=== PATIENT | female | born 1950 | race Hispanic/Latino ===

== ENCOUNTER → 2018-02-27 | Day surgery (SDC) | payer MEDICARE ==
[2018-02-26 08:57] VITALS: BMI 25.4
[~2018-02-27] MED LIST: Bupivacaine 0.75% 10 ML AMP ONE; CEFAZOLIN 1 GM VIAL ONE; Cyclopentolate 1% Opth Drop 2 ML BOT FS SCH; Cyclopentolate 1% Opth Drop 2 ML BOT ONE; Dextrose 50% Abboject 50 ML SYRINGE ONE; EPINEPHrine 0.3 MG, Dextrose 50% 3 ML in Ophthalmic Irrigation Solution 500 ML FS SCH; Fentanyl 100 MCG/2 ML VIAL ONE; Lidocaine 1% PF 5 ML VIAL ONE; Lidocaine 4% PF 5 ML AMP ONE; Maxitrol 0.1% Opth Oint 3.5 GM TUBE ONE; Midazolam HCl 2 mg/2 ml Vial ONE; PROPOFOL 20 ML ONE; PROPOFOL 200 MG/20 ML VIAL ONE; Phenylephrine 2.5% Ophth Soln 5 ML BOT FS SCH; Phenylephrine 2.5% Ophth Soln 5 ML BOT ONE; Triamcinolone 40 MG/ML VIAL ONE
--- NOTE | 2018-02-27 15:57 | OP ---
DATE OF PROCEDURE: 02/27/2018 PREOPERATIVE DIAGNOSIS: Vitreous hemorrhage. POSTOPERATIVE DIAGNOSIS: Vitreous hemorrhage. PROCEDURE: Pars plana vitrectomy and panretinal photocoagulation, left eye. SURGEON: Brian Suero M.D. ANESTHESIA: Local with monitored anesthesia care. PROCEDURE IN DETAIL: The patient was identified in the preoperative holding area. Appropriate infor med consent for the planned surgical procedure on the left eye had been obtained. The patient was tr ansported to the operative suite. Appropriate cardiopulmonary monitoring was established. Local ane sthesia was obtained using retrobulbar and modified Van Lint lid block using 50/50 mixture of 4% lido macarena and 0.75% bupivacaine. The patient was prepped and draped in the usual sterile manner for opht halmic surgery on the left eye. Lid speculum was placed in the left eye. The 25-gauge trocars place d in conjunctiva and sclera supratemporally, inferotemporally, and supranasally. Infusion line was p laced inferotemporally. Light pipe and vitreous cutter were inserted into the eye. Core vitrectomy was performed. Posterior hyaloid face was elevated and peeled off the posterior pole using vacuum prieto ction. All areas of bleeding were identified and treated with endolaser and Guerra retinal photocoagula tion was placed into all non-macular areas of the retina. Trocars were removed. Eye was noted to re tain pressure well. Retrobulbar Kenalog and subconjunctival Ancef were placed. Atropine and antibio tic ointment were placed. The eye was patched and shielded. The patient was taken to the postoperat tc recovery unit in good condition having suffered no immediate perioperative period. DISCHARGE INSTRUCTIONS: Patient was instructed to keep patch and shield on, avoid lifting or bending , and follow up in the morning with Dr. Suero.
== END ==
LOC: SDC 10:18
PROVIDERS: ATTEND Ophthalmology Retina Specialist
PROC: 08T53ZZ Resection of Left Vitreous, Percutaneous Approach (ICD-10-PCS; principal; 2018-02-27)
PROC: 085F3ZZ Destruction of Left Retina, Percutaneous Approach (ICD-10-PCS; 2018-02-27)
DX: H43.12 Vitreous hemorrhage, left eye (principal); E11.9 Type 2 diabetes mellitus without complications; Z79.82 Long term (current) use of aspirin; Z79.899 Other long term (current) drug therapy; Z79.4 Long term (current) use of insulin
CPT/HCPCS: 36416; J0171; J0690; J2001; J2250; J2704; J3010; J3301; J3490

== ENCOUNTER 2018-04-15 19:42 | Emergency (ER) | payer MEDICARE ==
--- NOTE | 2018-04-15 20:32 | RAD ---
RIGHT LOWER LEG TWO VIEWS: 04/15/18 HISTORY: Right leg injury. FINDINGS/IMPRESSION: The tibia and fibula are intact. Patellar fracture is better detailed on dedicated knee radiograph ex am. POS: [facility]
--- NOTE | 2018-04-15 20:35 | RAD ---
RIGHT KNEE FOUR VIEW 04/15/18 HISTORY: Injury. Pain. COMPARISON: None. FINDINGS: There is a transversely oriented fracture inferior pole of the patella with distraction approximately 4.5 cm. Extensive prepatellar soft tissue swelling. Moderate vascular calcifications. IMPRESSION: Displaced transversely oriented fracture inferior pole of the patella with 4.5 cm distraction. POS: [facility]
== END 2018-04-15 21:48 | disposition home or self-care (01) ==
LOC: ERS 19:42
DX: S82.031A Displaced transverse fracture of right patella, initial encounter for closed fracture (principal); E11.9 Type 2 diabetes mellitus without complications; E78.5 Hyperlipidemia, unspecified; I10 Essential (primary) hypertension; F17.210 Nicotine dependence, cigarettes, uncomplicated; I25.10 Atherosclerotic heart disease of native coronary artery without angina pectoris; Z79.82 Long term (current) use of aspirin; Z79.84 Long term (current) use of oral hypoglycemic drugs; Z79.899 Other long term (current) drug therapy; W01.0XXA Fall on same level from slipping, tripping and stumbling without subsequent striking against object, initial encounter
CPT/HCPCS: 99406

== ENCOUNTER 2018-04-19 13:56 | Emergency (ER) | payer MEDICARE | END 2018-04-19 17:15 | disposition home or self-care (01) | LOC: ERS 13:56 | DX: S82.001A Unspecified fracture of right patella, initial encounter for closed fracture (principal); I25.10 Atherosclerotic heart disease of native coronary artery without angina pectoris; E11.9 Type 2 diabetes mellitus without complications; E78.5 Hyperlipidemia, unspecified; I10 Essential (primary) hypertension; F17.210 Nicotine dependence, cigarettes, uncomplicated; Z79.899 Other long term (current) drug therapy; Z79.82 Long term (current) use of aspirin; Z79.4 Long term (current) use of insulin; W19.XXXA Unspecified fall, initial encounter | CPT/HCPCS: 99283 ==

== ENCOUNTER 2018-05-06 05:27 | Inpatient (IN) | payer MEDICARE ==
[2018-05-06 06:17] LABS: #Basophils 0.1 thou/uL (0.0-0.2); #Eosinphils 0.2 thou/uL (0.0-0.7); #Lymphocytes 2.1 thou/uL (1.20-3.40); #Monocytes 1.1 thou/uL (0.11-0.59); %Basophils 0.3 % (0.0-1.0); %Eosinophils 0.8 % (0.0-10.0); %Lymphocytes 11.2 % (21.0-51.0); %Neutrophils 81.7 % (42.0-75.0); Hemoglobin 9.4 g/dL (12.0-16.0); Mean Corpuscular HGB CONC 33.1 g/dL (32.0-36.0); Mean Corpuscular Hemoglobin 29.5 pg (27.0-31.0); Mean Corpuscular Volume 89.1 fL (78.0-98.0); Mean Platelet Volume 6.3 fL (7.4-10.4); Platelet Count 1007 thou/uL (130-400); RBC Distribution Width 12.9 % (11.5-14.5); Red Blood Cell (RBC) Count 3.18 mill/uL (4.20-5.40); White Blood Cell (WBC) Count 18.4 thou/uL (4.8-10.8)
[2018-05-06 06:19] LABS: ALT (SGPT) Less than 7 U/L (8-55); AST (SGOT) 14 U/L (5-34); Albumin 3.3 g/dL (3.4-4.8); Alkaline Phosphatase 101 U/L (40-150); Anion Gap 22 mmol/L (10-20); BUN (Urea Nitrogen) 60 mg/dL (9.8-20.1); Bilirubin, Total 0.3 mg/dL (0.2-1.2); CK (CPK) 75 U/L (29-168); Calc. Creatinine Clearance 0 mL/min (70-130); Calcium 8.9 mg/dL (7.8-10.44); Carbon Dioxide 13 mmol/L (23-31); Chloride 94 mmol/L (98-107); Estimated GFR-MDRD 31; Globulin 3.9 g/dL (2.4-3.5); Glucose 250 mg/dL (80-115); Lipase 7 U/L (8-78); Potassium 6.4 mmol/L (3.5-5.1); Protein, Total 7.2 g/dL (6.0-8.3); Sodium 123 mmol/L (136-145)
[2018-05-06 06:24] LABS: CKMB 2.2 ng/mL (0-6.6); Troponin I Less than 0.010 ng/mL (< 0.028)
[2018-05-06] MEDS ORDERED: Dextrose 50% Abboject 50 ML SYRINGE ONE (06:36)
[2018-05-06] MEDS ORDERED: Sodium Bicarb 50 MEQ/50 ML Abboject 8.4% SYRINGE ONE (06:36)
[2018-05-06] MEDS ORDERED: Insulin Regular 300 UNITS/3 ML VIAL ONE (06:36)
[2018-05-06] MEDS ORDERED: Calcium Gluc 4.6 MEQ/10 ML (100 MG/ML) ONE (06:36)
[2018-05-06 06:42] LABS: Bilirubin Small (Negative); Blood, Urine Large (Negative); Clarity TURBID (Clear); Glucose, Urine (Dipstick) 250 mg/dL (Negative); Leukocyte Large (Negative); Nitrite Negative (Negative); Protein, Urine (Dipstick) Trace mg/dL (Neg-Trace); Specific Gravity, Urine 1.013 (1.002-1.036); Urobilinogen 0.2 mg/dL (0.2-1.0)
[2018-05-06 06:45] LABS: Bacteria/HPF 3+ HPF (None Seen); Squamous Epithelial None Seen HPF (0-3)
[2018-05-06 06:53] LABS: Pathc Cast-AUWi Flag 3.98 (0-2.49)
[2018-05-06 07:01] LABS: Hyaline Casts/LPF 0-3 HYALINE CAST LPF (0-3 Hyaline); Manual Microscopic Reviewed? No Path Casts Seen; Yeast-All Forms 2+ HPF (None Seen)
[2018-05-06] MEDS ORDERED: Ondansetron ODT 4 MG TAB PO PRN (07:46)
[2018-05-06] MEDS ORDERED: Milk Of Magnesia 30 ML UDCUP PO PRN (07:46)
[2018-05-06] MEDS ORDERED: Zolpidem Tartrate 5 MG TAB PO PRN (07:46)
[2018-05-06] MEDS ORDERED: Senokot 8.6 MG TAB PO PRN (07:46)
[2018-05-06] MEDS ORDERED: Sodium Chloride 0.65% Nasal 44 ML BOT EA NARE PRN (07:46)
[2018-05-06] MEDS ORDERED: Mag-Al 1200 mg/1200 mg/30 ML UDCUP PO PRN (07:46)
[2018-05-06] MEDS ORDERED: Dextrose 50% Abboject 50 ML SYRINGE SLOW IVP PRN (07:46)
[2018-05-06] MEDS ORDERED: Eucerin (Mineral Oil/Petrolatum,White) 30 gm Jar TOP PRN (07:46)
[2018-05-06] MEDS ORDERED: Loperamide HCl 2 MG CAP PO PRN (07:46)
[2018-05-06] MEDS ORDERED: Diabetic Tussin 200 MG/10 ML UDCUP PO PRN (07:46)
[2018-05-06] MEDS ORDERED: Dextrose 5% in Water 1,000 ML IV PRN (07:46)
[2018-05-06] MEDS ORDERED: Artificial Tears 18 DROP/0.9 ML EA EYE PRN (07:46)
[2018-05-06] MEDS ORDERED: Loratadine 10 MG TAB PO PRN (07:46)
[2018-05-06] MEDS ORDERED: Ondansetron HCl/PF 4 MG/2 ML Vial IVP PRN (07:46)
[2018-05-06] MEDS ORDERED: hydrALAZINE 20 MG/ML VIAL SLOW IVP PRN (07:46)
[2018-05-06] MEDS ORDERED: Acetaminophen 325 MG TAB PO PRN (07:46)
[2018-05-06] MEDS ORDERED: Chloraseptic Spray 180 ml Bottle PO PRN (07:46)
--- NOTE | 2018-05-06 08:37 | RAD ---
CHEST ONE VIEW: HISTORY: Altered mental status. COMPARISON: 11/01/2012 FINDINGS: Normal cardiac silhouette. Pulmonary vessels and hilum are normal. Costophrenic angles are clear. No masses or consolidation. No pneumothorax. Mild lung embolization. IMPRESSION: No acute cardiopulmonary process. POS: [facility]
[2018-05-06] MEDS ORDERED: HYDROcodone/Acetaminophen 5/325 mg Tablet ONE (09:17)
--- NOTE | 2018-05-06 12:07 | HP ---
PRIMARY CARE PHYSICIAN: Dr. Jay Thomason. REASON FOR ADMISSION: Acute encephalopathy, sepsis with acute organ dysfunction, acute kidney failur e, urinary tract infection. HISTORY OF PRESENT ILLNESS: A 67-year-old female with a history of hypertension on lisinopril as wel l as a history of diabetes on oral diabetic medication, who had recently surgery done for right garcia lar fracture by Dr. Echevarria on 04/24/2018. The patient acquired that injury after a fall. The rachel ent had a right inferior pole patellectomy with repair of patellar tendons and subsequently brace was applied to right lower extremity. Patient was able to ambulate with walker with the support. She w as not putting weight on the right lower extremity. Patient's daughter is present at bedside who provided most of the history as patient appeared to be c onfused and not participating with the history. The patient's daughter reports that since surgery, s he is gradually downhill. Her condition has gradually gotten worse and she was becoming more and mor e weak. For the last 2-3 days, the patient is becoming more and more confused. She has very poor ap petite. Her last bowel movement was about 4 days ago. The patient was having fever at home about 2- 3 days ago and she was feeling subjectively warm. She did not have any black tarry stools. She was not having any headache, upper respiratory or lower respiratory symptoms. Initially, patient was kep t on [place], but subsequently family member were giving her tramadol only. Today, she had routine blood test done in the emergency room and found with leukocytosis and thromboc ytosis as well as hyponatremia, hyperkalemia, acute kidney injury and her urinalysis was suggestive o f urinary tract infection. Her CT brain was negative for any acute intracranial process and chest x- ray was unremarkable. The patient is being admitted to telemetry floor for further evaluation. REVIEW OF SYSTEMS: All review of systems tried to review with the patient, but unable to review anisha use of altered mental status. PAST MEDICAL HISTORY: Coronary artery disease, hypertension, diabetes type 2, dyslipidemia, peripher al vascular disease. PSYCHIATRIC HISTORY: Anxiety and depression. PAST SURGICAL HISTORY: Stent in the left leg, hernia repair, cholecystectomy, hysterectomy, right pa tellectomy and right patellar tendon repair recently. SOCIAL HISTORY: The patient lives at home with family. She smokes cigar at variable number. She de nies any alcohol abuse. She does not have any other illicit drug abuse. She currently ambulates wit h a walker. FAMILY HISTORY: No strong family history of premature coronary artery disease, stroke or cancer. ALLERGIES: No known drug allergy. CURRENT HOME MEDICATIONS: Trazodone 25 mg p.o. at bedtime, amitriptyline 100 mg p.o. at bedtime, aml odipine 2.5 mg p.o. daily, aspirin 81 mg p.o. daily, glipizide 5 mg p.o. 3 times daily, lisinopril 20 mg twice daily, Plavix 75 mg p.o. every other day, Zocor 10 mg p.o. at bedtime, Farxiga 10 mg p.o. d aily, Acarbose 25 mg 3 times daily before meals, Zetia 5 mg p.o. at bedtime, triamterene with hydroch lorothiazide 37.5/25 one-half tablet daily, metformin 850 mg 3 times daily, Humalog insulin twice dee ly as per sliding scale, Tylenol #3 one tablet q.4 hourly p.r.n., tramadol 50 mg q.6 hourly p.r.n. EMERGENCY ROOM COURSE: Patient is given heparin 5000 units subcu, [place] 1 tablet, IV fluid, Rocephin 1 gram, sodium bicarbonate 1 ampule, Humulin R 10 units, D50 one ampule, calcium gluconate 1 ampule and another liter of fluid in the emergency room. PHYSICAL EXAMINATION: VITAL SIGNS: On arrival, blood pressure 135/44, pulse 88, respiratory rate 18, temperature 99.0, sat uration 100% on room air, weight 53.5 kilograms. GENERAL: The patient is currently confused, arousable, follows simple command. HEENT: HEAD: Normocephalic, atraumatic. Eyes: Pupils round, reactive to light. Extraocular muscl e intact. ENT: Dry mucous membrane, no oral lesion, no pharyngeal erythema, no exudate. NECK: Supple, no JVD, no thyromegaly, no carotid bruit, no jugular venous distention. LUNGS: Clear to auscultation without any rhonchi or rales. CARDIAC: S1, S2 regular. No murmur, no gallop, no rub. ABDOMEN: Soft. Ventral hernia noted, reducible and nontender. No organomegaly, no mass, no suprapu bic discomfort. BACK: Unremarkable, no CVA tenderness. EXTREMITIES: Upper extremity, passive movement of all joints are normal. Lower extremity, brace ove r right lower extremity. Good distal pulsation. SKIN: No skin rash. HEMATOLOGICAL: No lymphadenopathy. PSYCHIATRIC: Normal affect. NEUROLOGIC: Grossly nonfocal examination. She moves all 4 limbs. SIGNIFICANT LABORATORY DATA AND IMAGING: EKG showing complete right bundle branch block pattern, non specific ST-T changes. CT brain based on my review is related to chronic ischemic white matter casper es, but no acute process. Chest x-ray based on my review, no acute cardiopulmonary process. CBC: W BC 18.4, hemoglobin 9.4, platelet 1007. BMP: Sodium 123, potassium 6.4, chloride 94, carbon dioxide 13, anion gap 22, BUN 60, creatinine 1.63, glucose 250, calcium 8.9. LFT: AST 14, ALT 7, alkaline phosphatase 101, albumin 3.3, lipase 7, CK 75, CK-MB 2.2, troponin I less than 0.010. BNP 25.8. Uri nalysis: Leukocyte esterase large, blood large, WBC greater than 50, bacteria 3+ and yeast 2+. ASSESSMENT AND PLAN: 1. Acute kidney failure, most likely related with prerenal etiology secondary to poor p.o. intake an d associated sepsis. Patient will be given IV fluid at 100 mL per hour and will repeat BMP tomorrow. We will give medication based on renal dose and avoid nephrotoxic agent. 2. Hyponatremia likely due to poor p.o. intake as well as patient's use of hydrochlorothiazide. The patient will be given NS and we will repeat BMP tomorrow. We will check urine sodium, urine creatin ine, urine protein, TSH and cortisol as a part of hyponatremia workup to rule out any other process. 3. Hyperkalemia, cocktail treatment is given in the emergency room. We will repeat BMP tomorrow, pr obably related with metabolic acidosis and renal failure as well as lisinopril. We will hold on jimbo nopril therapy during this admission. The patient will be given low potassium diet. 4. Acute metabolic encephalopathy. Patient is currently confused. She does not have any focal defi cits. CT brain is negative, most likely related with metabolic parameters as well as underlying seps is secondary to urinary tract infection. We will closely monitor on telemetry floor. 5. Sepsis with acute organ dysfunction. The patient has leukocytosis, low grade fever and source of infection is urinary tract infection. The patient is on appropriate broad spectrum antibiotic thera py with Rocephin and Levaquin as well as IV fluid and we will follow up on culture result. 6. Metabolic acidosis, likely due to sepsis and renal failure. The patient is on IV fluid and will repeat BMP tomorrow. 7. Urinary tract infection. We are sending urine culture, blood culture and we are starting Rocephi n and Levaquin as per renal dose. We will follow up on culture result and change antibiotic therapy accordingly. 8. Diabetes type 2. We will start insulin as per sliding scale per protocol. Diabetic diet will be given. Once we verify the patient's home medication, then we will resume selected diabetes medicati on. 9. Anemia, normocytic, normochromic. Patient will be given multivitamin and ferrous sulfate while i n hospital. 10. Hypertension, but currently low blood pressure. We will hold on her antihypertensive medication until we verify medication from home and then we will start selected home medication if hemodynamic permits. 11. Recent patellar fracture, required surgery. The patient's family member wants orthopedic needs to notify and that is why we will consult Dr. Echevarria to give opinion regarding weightbearing while in hospital. Pain will be controlled with pain medication. 12. Dyslipidemia. We will resume Zocor 10 mg p.o. at bedtime and Zetia 5 mg p.o. daily. 13. Anxiety and depression. We will resume amitriptyline and trazodone as per home dosage. 14. Coronary artery disease and peripheral vascular disease. We will resume Plavix 75 mg p.o. daily . 15. Deep venous thrombosis prophylaxis, heparin 5000 units subcu three times daily. 16. Reactive thrombocytosis. We will monitor platelet count. CODE STATUS: Patient is FULL CODE. Patient's daughter is surrogate decision maker. Disposition plan based on clinical course. We are expecting patient's stay in hospital more than 2 m idnights. Plan of care discussed with the patient in detail.
--- NOTE | 2018-05-06 12:23 | CT ---
PRELIMINARY REPORT/[facility]/EMERGENCY AFTER HOURS PROCEDURE: EXAM: CT Head Without Intravenous Contrast EXAM DATE/TIME: 05/06/2018 6:22 AM CLINICAL HISTORY: 67 years old, female; Signs and symptoms; Altered mental status/memory loss; Confusion or disorientat ion; Additional info: Patient presents for evaluation of mental status changes. TECHNIQUE: Axial computed tomography images of the head/brain without intravenous contrast. COMPARISON: No relevant prior studies available. FINDINGS: Brain: Prominent sulci. Patchy hypodensity of the cerebral white matter which are nonspecific but lik linda secondary to microangiopathic changes. Ventricles: The ventricles are mildly prominent secondary to diffuse volume loss/atrophy. Bones/joints: Normal. No acute fracture. Sinuses: Normal as visualized. No acute sinusitis. Mastoid air cells: Normal as visualized. No mastoid effusion. Soft tissues: Normal. IMPRESSION: Mild age-related changes but no evidence of acute intracranial pathology. Thank you for allowing us to participate in the care of your patient. Dictated and Authenticated by: Mary Ann Lamas MD 05/06/2018 6:39 AM Central Time ([place] & [place]) FINAL REPORT CT OF THE BRAIN WITHOUT CONTRAST: INDICATION: Altered mental status. COMPARISON: None. FINDINGS: Please see the preliminary report for full details. IMPRESSION: I agree with the preliminary report provided. No acute intracranial abnormality is evident. There i s mild chronic small-vessel white matter ischemic change with mild age-related atrophy. POS: [facility]
[2018-05-06] MEDS: HYDROcodone/Acetaminophen 5/325 mg Tablet PO PRN ×2 (14:30→18:53)
[2018-05-06] MEDS: Sodium Chloride 0.9% 1,000 ML IV SCH ×3 (14:31→21:10)
[2018-05-06] MEDS: cefTRIAXone\\ROCEPHIN 1 GM in Sodium Chloride 0.9% 100 ML IVPB SCH (14:32)
[2018-05-06] MEDS: Heparin 5,000 UNITS/ML VIAL SC SCH ×3 (14:32→20:33)
[2018-05-06] MEDS: Saccharomyces boulardii 250 MG CAP PO SCH (14:35)
[2018-05-06] MEDS: HumaLOG 300 UNITS/3 ML VIAL SC PRN ×2 (19:08→22:02)
[2018-05-06] MEDS ORDERED: traMADol HCl 50 MG TAB PO SCH (21:30)
[2018-05-07 05:20] LABS: #Eosinphils 0.1 thou/uL (0.0-0.7); #Lymphocytes 1.8 thou/uL (1.20-3.40); #Monocytes 0.9 thou/uL (0.11-0.59); #Neutrophils 6.5 thou/uL (1.40-6.50); %Eosinophils 0.6 % (0.0-10.0); %Lymphocytes 19.7 % (21.0-51.0); %Neutrophils 69.6 % (42.0-75.0); Hemoglobin 7.6 g/dL (12.0-16.0); Mean Corpuscular Hemoglobin 29.2 pg (27.0-31.0); Mean Corpuscular Volume 91.2 fL (78.0-98.0); Mean Platelet Volume 5.9 fL (7.4-10.4); Platelet Count 781 thou/uL (130-400); RBC Distribution Width 13.6 % (11.5-14.5); White Blood Cell (WBC) Count 9.3 thou/uL (4.8-10.8)
[2018-05-07] MEDS: Sodium Chloride 0.9% 1,000 ML IV SCH (05:33)
[2018-05-07 06:10] LABS: ALT (SGPT) Less than 7 U/L (8-55); AST (SGOT) 8 U/L (5-34); Albumin 2.6 g/dL (3.4-4.8); Alkaline Phosphatase 79 U/L (40-150); Anion Gap 15 mmol/L (10-20); BUN (Urea Nitrogen) 21 mg/dL (9.8-20.1); Bilirubin, Total 0.3 mg/dL (0.2-1.2); Calc. Creatinine Clearance 60 mL/min (70-130); Calcium 8.3 mg/dL (7.8-10.44); Carbon Dioxide 19 mmol/L (23-31); Chloride 104 mmol/L (98-107); Estimated GFR-MDRD 85; Globulin 3.1 g/dL (2.4-3.5); Glucose 155 mg/dL (80-115); Potassium 4.9 mmol/L (3.5-5.1); Protein, Total 5.7 g/dL (6.0-8.3); Sodium 133 mmol/L (136-145)
[2018-05-07] MEDS ORDERED: Prevnar 13-Val Conj/PF 0.5 ML SYRINGE IM ONE (09:00)
[2018-05-07] MEDS: Saccharomyces boulardii 250 MG CAP PO SCH (09:56)
[2018-05-07] MEDS: HYDROcodone/Acetaminophen 5/325 mg Tablet PO PRN ×2 (09:56→18:01)
[2018-05-07] MEDS: cefTRIAXone\\ROCEPHIN 1 GM in Sodium Chloride 0.9% 100 ML IVPB SCH (09:57)
[2018-05-07] MEDS: Heparin 5,000 UNITS/ML VIAL SC SCH ×3 (09:57→20:24)
--- NOTE | 2018-05-07 10:48 | PDOC.PN ---
- Subjective Encounter Start Date: 05/07/18 Encounter Start Time: 07:50 -: old records requested/rev pt has less apatite, no fever, has right shoulder pain, no diarrhoea - Objective Resuscitation Status: Resuscitation Status FULL:Full Resuscitation MAR Reviewed: Yes Vital Signs & Weight: Vital Signs (12 hours) Temp Pulse Resp BP Pulse Ox 05/07/18 07:20 98.5 F 88 18 136/80 96 05/07/18 03:50 98.3 F 90 18 143/84 H 96 Weight Weight 108 lb I&O: 05/06/18 05/07/18 05/08/18 06:59 06:59 06:59 Intake Total 1100 Balance 1100 Result Diagrams: 05/07/18 04:50 05/07/18 04:50 Additional Labs: Accuchecks 05/07/18 05/06/18 05/06/18 06:06 20:46 16:57 POC Glucose 178 H 214 H 239 H 05/06/18 14:05 POC Glucose 152 H Radiology Reviewed by me: Yes (shoulder xray) EKG Reviewed by me: Yes (nsr) Phys Exam - Physical Examination Constitutional: NAD HEENT: PERRLA, moist MMs, sclera anicteric Neck: no JVD, supple Respiratory: no wheezing, no rales, no rhonchi Cardiovascular: RRR, no significant murmur, no rub Gastrointestinal: soft, non-tender, no distention, positive bowel sounds Musculoskeletal: no edema, pulses present brace right leg Neurological: non-focal, normal sensation Lymphatic: no nodes Psychiatric: normal affect, A&O x 3 Skin: no rash, normal turgor Dx/Plan (1) Acute kidney failure Status: Resolved (2) Acute metabolic encephalopathy Code(s): G93.41 - METABOLIC ENCEPHALOPATHY Status: Resolved (3) Hyperkalemia Code(s): E87.5 - HYPERKALEMIA Status: Resolved (4) Hyponatremia Code(s): E87.1 - HYPO-OSMOLALITY AND HYPONATREMIA Status: Resolved (5) Metabolic acidosis Code(s): E87.2 - ACIDOSIS Status: Resolved (6) Sepsis with acute organ dysfunction Code(s): A41.9 - SEPSIS, UNSPECIFIED ORGANISM; R65.20 - SEVERE SEPSIS WITHOUT SEPTIC SHOCK Status: Acute (7) UTI (urinary tract infection) Status: Acute (8) Anemia, normocytic normochromic Code(s): D64.9 - ANEMIA, UNSPECIFIED Status: Chronic (9) CAD (coronary artery disease) Code(s): I25.10 - ATHSCL HEART DISEASE OF [place] CORONARY ARTERY W/O ANG PCTRS Status: Chronic (10) Diabetes type 2, controlled Code(s): E11.9 - TYPE 2 DIABETES MELLITUS WITHOUT COMPLICATIONS Status: Chronic (11) Hypertension Code(s): I10 - ESSENTIAL (PRIMARY) HYPERTENSION Status: Chronic (12) PVD (peripheral vascular disease) Code(s): I73.9 - PERIPHERAL VASCULAR DISEASE, UNSPECIFIED Status: Chronic (13) Anxiety and depression Code(s): F41.9 - ANXIETY DISORDER, UNSPECIFIED; F32.9 - MAJOR DEPRESSIVE DISORDER, SINGLE EPISODE, UNSPECIFIED Status: Chronic (14) Diabetic neuropathy Code(s): E11.40 - TYPE 2 DIABETES MELLITUS WITH DIABETIC NEUROPATHY, UNSP Status: Chronic - Plan cont current plan of care, plan discussed w/ family, continue antibiotics * DC tele and transfer to medical * shoulder xray unremarkable, needs PT/OT, ortho on case * medication reviewed as below * symptomatic treatment * continue rocephin * discussed with daughter * continue ivf for this bag and then heplock. * selected home medication reconciled Review of Systems - Review of Systems Eyes: negative: Pain, Vision Change, Conjunctivae Inflammation, Eyelid Inflammation, Redness, Other ENT: negative: Ear Pain, Ear Discharge, Nose Pain, Nose Discharge, Nose Congestion, Mouth Pain, Mouth Swelling, Throat Pain, Throat Swelling, Other Respiratory: negative: Cough, Dry, Shortness of Breath, Hemoptysis, SOB with Excertion, Pleuritic Pain, Sputum, Wheezing Cardiovascular: negative: chest pain, palpitations, orthopnea, paroxysmal nocturnal dyspnea, edema, light headedness, other Gastrointestinal: negative: Nausea, Vomiting, Abdominal Pain, Diarrhea, Constipation, Melena, Hematochezia, Other Genitourinary: negative: Dysuria, Frequency, Incontinence, Hematuria, Retention , Other Musculoskeletal: Shoulder Pain. negative: Neck Pain, Arm Pain, Back Pain, Hand Pain, Leg Pain, Foot Pain, Other Skin: negative: Rash, Lesions, Aureliano, Bruising, Other - Medications/Allergies Allergies/Adverse Reactions: Allergies Allergy/AdvReac Type Severity Reaction Status Date / Time No Known Drug Allergies Allergy Verified 04/23/18 13:34 Medications: Current Medications Acetaminophen (Tylenol) 650 mg PO Q4H PRN PRN Reason: Headache/Fever or Pain Hydrocodone Bitart/Acetaminophen (Arnold 5/325) 1 tab PO Q4H PRN PRN Reason: Moderate Pain (4-6) Last Admin: 05/07/18 09:56 Dose: 1 tab Al Hydroxide/Mg Hydroxide (Maalox) 30 ml PO Q6H PRN PRN Reason: Heartburn or Indigestion Artificial Tears (Tears Naturale) 0 drop EA EYE PRN PRN PRN Reason: Dry Eyes Dextrose/Water (Dextrose 50%) 25 gm SLOW IVP PRN PRN PRN Reason: Hypoglycemia Glucagon (Glucagon) 1 mg IM PRN PRN PRN Reason: Hypoglycemia Guaifenesin (Robitussin Sf) 200 mg PO Q4H PRN PRN Reason: Cough Heparin Sodium (Porcine) (Heparin) 5,000 units SC TID [facility] Last Admin: 05/07/18 09:57 Dose: 5,000 units Hydralazine HCl (Apresoline) 10 mg SLOW IVP Q4H PRN PRN Reason: Systolic BP > 180 Ceftriaxone Sodium 1 gm/ (Sodium Chloride) 100 mls @ 200 mls/hr IVPB Q24HR [facility] Last Admin: 05/07/18 09:57 Dose: 100 mls Dextrose/Water (D5w) 1,000 mls @ 0 mls/hr IV .Q0M PRN PRN Reason: Hypoglycemia Levofloxacin 750 mg/ Device 150 mls @ 100 mls/hr IVPB Q2DAYS [facility] Last Admin: 05/06/18 18:18 Dose: 150 mls Sodium Chloride (Normal Saline 0.9%) 1,000 mls @ 100 mls/hr IV .Q10H [facility] Last Admin: 05/07/18 05:33 Dose: 1,000 mls Insulin Human Lispro (Humalog) 0 units SC .MODERATE SLIDING SC PRN PRN Reason: Moderate Correctional Scale Last Admin: 05/06/18 19:08 Dose: 4 unit Insulin Human Lispro (Humalog) 0 units SC .BEDTIME SLIDING SC PRN PRN Reason: Bedtime Correctional Scale Last Admin: 05/06/18 22:02 Dose: 2 unit Loperamide HCl (Imodium) 2 mg PO PRN PRN PRN Reason: Diarrhea/Loose Stools Loratadine (Claritin) 10 mg PO DAILYPRN PRN PRN Reason: Sinus Symptoms Magnesium Hydroxide (Milk Of Magnesium) 30 ml PO DAILYPRN PRN PRN Reason: Constipation Mineral Oil/White Petrolatum (Eucerin Cream) 0 gm TOP BIDPRN PRN PRN Reason: Dry Skin Ondansetron HCl (Zofran Odt) 4 mg PO Q6H PRN PRN Reason: Nausea/Vomiting Last Admin: 05/07/18 09:56 Dose: 4 mg Ondansetron HCl (Zofran) 4 mg IVP Q6H PRN PRN Reason: Nausea/Vomiting Phenol (Chloraseptic [place] 180 Ml Bot) 0 ml PO PRN PRN PRN Reason: Sore Throat Saccharomyces Boulardii (Florastor) 250 mg PO DAILY [facility] Last Admin: 05/07/18 09:56 Dose: 250 mg Senna (Senokot) 2 tab PO HSPRN PRN PRN Reason: Constipation Sodium Chloride ([place] Nasal [place] 0.65%) 0 ml EA NARE QIDPRN PRN PRN Reason: Nasal Congestion Sodium Chloride (Flush - Normal Saline) 10 ml IVF Q12HR [facility] Last Admin: 05/07/18 09:57 Dose: 10 ml Sodium Chloride (Flush - Normal Saline) 10 ml IVF PRN PRN PRN Reason: Saline Flush Zolpidem Tartrate (Ambien) 5 mg PO HSPRN PRN PRN Reason: Insomnia
[2018-05-07] MEDS: HumaLOG 300 UNITS/3 ML VIAL SC PRN (11:37)
--- NOTE | 2018-05-07 11:44 | RAD ---
RIGHT SHOULDER 3 VIEWS: Date: 05/07/18 HISTORY: Fall. Pain. COMPARISON: None. FINDINGS: Mild degenerative changes of the acromioclavicular joint space. Glenohumeral joint space is preserved . No fracture or dislocation. Visualized right ribs are intact. IMPRESSION: No fracture. POS: [facility]
--- NOTE | 2018-05-07 12:31 | CON ---
DATE OF CONSULTATION: 05/07/2018 SUBJECTIVE: Rocio is a 67-year-old female who is status post partial inferior patellectomy of th e right lower extremity approximately a week and a half ago by Dr. Echevarria. The patient was readmit oriana to the hospital by the Medicine Team yesterday for acute encephalopathy, suspected sepsis and a c omplicated urinary tract infection. Our service was consulted for the readmission and for inpatient follow up care of the recent patellectomy on the right knee. Her surgery occurred 04/24/2018 and Jeremy aburto she had a fall since then, but she was wearing her brace at the time. She has been able to am bulate with a partial weightbearing fashion with a brace locked in full extension. PHYSICAL EXAMINATION: Visual inspection of the right lower extremity demonstrates her to have signif icant changes to the skin overlying the surgical site. There is some early skin appreciated. I cannot see down to the patella itself, but the wound is not grossly split open, does not appear vika ssly infected at this point, but appears to have more of an eschar formation and early necrotic look. No effusion is present. The patient can straight leg raise. She is neurovascularly intact distal to this. IMPRESSION: 1. Status post right knee partial patellectomy secondary to a patellar fracture from a fall (2017). She was seen in clinic Saturday of this week and I believe stitches were removed. 2. The wound was redressed and evaluated. 3. Severe end-stage peripheral vascular disease. 4. 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 5. The patient continues to smoke. 6. Recurrent falls. 7. Early skin over her patellectomy. PLAN: Continue current care. Conservative measures. If we cannot encourage this to heal over the n ext 6-8 weeks, either give consideration to chronic antibiotic suppression versus above knee amputati on, but I believe the patient has significant comorbidities.
[2018-05-07] MEDS ORDERED: Clopidogrel Bisulfate 75 MG TAB ONE (12:46)
[2018-05-07] MEDS: Clopidogrel Bisulfate 75 MG TAB PO SCH (12:46)
[2018-05-07] MEDS ORDERED: HYDROcodone/Acetaminophen 5/325 mg Tablet PO SCH (20:15)
[2018-05-07] MEDS: traZODone HCl 50 MG TAB PO SCH (20:22)
[2018-05-07] MEDS: Amitriptyline HCl 100 MG TAB PO SCH (20:22)
[2018-05-07] MEDS: Simvastatin 5 MG TAB PO SCH (20:38)
[2018-05-08] MEDS: HumaLOG 300 UNITS/3 ML VIAL SC PRN ×2 (06:21→12:52)
[2018-05-08 08:20] LABS: #Basophils 0.1 thou/uL (0.0-0.2); #Eosinphils 0.2 thou/uL (0.0-0.7); #Lymphocytes 2.6 thou/uL (1.20-3.40); #Monocytes 0.9 thou/uL (0.11-0.59); #Neutrophils 5.6 thou/uL (1.40-6.50); %Basophils 0.8 % (0.0-1.0); %Eosinophils 1.8 % (0.0-10.0); %Lymphocytes 27.7 % (21.0-51.0); %Monocytes 9.8 % (0.0-10.0); %Neutrophils 59.9 % (42.0-75.0); Hemoglobin 7.9 g/dL (12.0-16.0); Mean Corpuscular HGB CONC 32.9 g/dL (32.0-36.0); Mean Corpuscular Hemoglobin 29.7 pg (27.0-31.0); Mean Corpuscular Volume 90.3 fL (78.0-98.0); Mean Platelet Volume 5.8 fL (7.4-10.4); Platelet Count 759 thou/uL (130-400); RBC Distribution Width 13.6 % (11.5-14.5); Red Blood Cell (RBC) Count 2.66 mill/uL (4.20-5.40); White Blood Cell (WBC) Count 9.4 thou/uL (4.8-10.8)
[2018-05-08 08:37] LABS: Anion Gap 9 mmol/L (10-20); BUN (Urea Nitrogen) 11 mg/dL (9.8-20.1); Calc. Creatinine Clearance 64 mL/min (70-130); Calcium 8.7 mg/dL (7.8-10.44); Carbon Dioxide 28 mmol/L (23-31); Chloride 104 mmol/L (98-107); Estimated GFR-MDRD 89; Glucose 155 mg/dL (80-115); Potassium 4.6 mmol/L (3.5-5.1); Sodium 136 mmol/L (136-145)
[2018-05-08] MEDS: Saccharomyces boulardii 250 MG CAP PO SCH (08:41)
[2018-05-08] MEDS: Heparin 5,000 UNITS/ML VIAL SC SCH ×3 (08:42→21:37)
[2018-05-08] MEDS: Ezetimibe 10 MG TAB PO SCH (08:42)
[2018-05-08] MEDS: Amlodipine 5 MG TAB PO SCH (08:42)
[2018-05-08] MEDS: Aspirin 81 mg Enteric Coated Tablet PO SCH (08:42)
[2018-05-08] MEDS: cefTRIAXone\\ROCEPHIN 1 GM in Sodium Chloride 0.9% 100 ML IVPB SCH (08:48)
[2018-05-08] MEDS: HYDROcodone/Acetaminophen 10/325 mg Tablet PO PRN ×3 (08:53→20:32)
--- NOTE | 2018-05-08 11:29 | PDOC.PN ---
- Subjective Encounter Start Date: 05/08/18 Encounter Start Time: 08:00 Patient seen and examined. No new complaints. No overnight events - Objective Resuscitation Status: Resuscitation Status FULL:Full Resuscitation MAR Reviewed: Yes Vital Signs & Weight: Vital Signs (12 hours) Temp Pulse Resp BP BP Pulse Ox 05/08/18 08:42 82 163/66 H 05/08/18 07:17 98.8 F 82 14 163/66 H 97 05/08/18 04:00 98.6 F 87 16 148/69 H 96 05/08/18 00:00 98.6 F 86 18 128/57 L 94 L Weight Admit Weight 108 lb 7 oz Weight 110 lb 2 oz I&O: 05/07/18 05/08/18 05/09/18 06:59 06:59 06:59 Intake Total 1100 360 Balance 1100 360 Result Diagrams: 05/08/18 07:54 05/08/18 07:54 Additional Labs: Accuchecks 05/08/18 05/07/18 05/07/18 04:56 20:10 16:25 POC Glucose 218 H 229 H 111 H Phys Exam - Physical Examination Constitutional: NAD HEENT: PERRLA, moist MMs, sclera anicteric Neck: no JVD, supple Respiratory: no wheezing, no rales, no rhonchi Cardiovascular: RRR, no significant murmur, no rub Gastrointestinal: soft, non-tender, no distention, positive bowel sounds Musculoskeletal: no edema, pulses present right knee with dressing and brace+ Neurological: non-focal, normal sensation Psychiatric: normal affect, A&O x 3 Skin: no rash, normal turgor Dx/Plan (1) Acute kidney failure Status: Resolved (2) Acute metabolic encephalopathy Code(s): G93.41 - METABOLIC ENCEPHALOPATHY Status: Resolved (3) Hyperkalemia Code(s): E87.5 - HYPERKALEMIA Status: Resolved (4) Hyponatremia Code(s): E87.1 - HYPO-OSMOLALITY AND HYPONATREMIA Status: Resolved (5) Metabolic acidosis Code(s): E87.2 - ACIDOSIS Status: Resolved (6) Sepsis with acute organ dysfunction Code(s): A41.9 - SEPSIS, UNSPECIFIED ORGANISM; R65.20 - SEVERE SEPSIS WITHOUT SEPTIC SHOCK Status: Acute (7) UTI (urinary tract infection) Status: Acute (8) Anemia, normocytic normochromic Code(s): D64.9 - ANEMIA, UNSPECIFIED Status: Chronic (9) CAD (coronary artery disease) Code(s): I25.10 - ATHSCL HEART DISEASE OF [place] CORONARY ARTERY W/O ANG PCTRS Status: Chronic (10) Diabetes type 2, controlled Code(s): E11.9 - TYPE 2 DIABETES MELLITUS WITHOUT COMPLICATIONS Status: Chronic (11) Hypertension Code(s): I10 - ESSENTIAL (PRIMARY) HYPERTENSION Status: Chronic (12) Patella fracture Code(s): S82.009A - UNSP FRACTURE OF UNSP PATELLA, INIT FOR CLOS FX Status: Acute Qualifiers: Fracture type: open Laterality: right Fracture healing: with delayed healing Comment: s/p surgery (13) Anxiety and depression Code(s): F41.9 - ANXIETY DISORDER, UNSPECIFIED; F32.9 - MAJOR DEPRESSIVE DISORDER, SINGLE EPISODE, UNSPECIFIED Status: Chronic (14) Diabetic neuropathy Code(s): E11.40 - TYPE 2 DIABETES MELLITUS WITH DIABETIC NEUROPATHY, UNSP Status: Chronic (15) PVD (peripheral vascular disease) Code(s): I73.9 - PERIPHERAL VASCULAR DISEASE, UNSPECIFIED Status: Chronic - Plan cont current plan of care, plan discussed w/ family, continue antibiotics * continue empiric rocephin and levaquin * pain controlled * medication reviewed as below * symptomatic treatment * ortho following * wound care. Review of Systems - Review of Systems ENT: negative: Ear Pain, Ear Discharge, Nose Pain, Nose Discharge, Nose Congestion, Mouth Pain, Mouth Swelling, Throat Pain, Throat Swelling, Other Respiratory: negative: Cough, Dry, Shortness of Breath, Hemoptysis, SOB with Excertion, Pleuritic Pain, Sputum, Wheezing Cardiovascular: negative: chest pain, palpitations, orthopnea, paroxysmal nocturnal dyspnea, edema, light headedness, other Gastrointestinal: negative: Nausea, Vomiting, Abdominal Pain, Diarrhea, Constipation, Melena, Hematochezia, Other Genitourinary: negative: Dysuria, Frequency, Incontinence, Hematuria, Retention , Other Musculoskeletal: negative: Neck Pain, Shoulder Pain, Arm Pain, Back Pain, Hand Pain, Leg Pain, Foot Pain, Other Skin: negative: Rash, Lesions, Aureliano, Bruising, Other - Medications/Allergies Allergies/Adverse Reactions: Allergies Allergy/AdvReac Type Severity Reaction Status Date / Time No Known Drug Allergies Allergy Verified 04/23/18 13:34 Medications: Current Medications Acarbose (Precose) 25 mg PO TID-[facility] Last Admin: 05/08/18 08:40 Dose: 25 mg Acetaminophen (Tylenol) 650 mg PO Q4H PRN PRN Reason: Headache/Fever or Pain Hydrocodone Bitart/Acetaminophen ([place] 10/325) 1 tab PO Q4H PRN PRN Reason: Severe Pain (7-10) Last Admin: 05/08/18 08:53 Dose: 1 tab Al Hydroxide/Mg Hydroxide (Maalox) 30 ml PO Q6H PRN PRN Reason: Heartburn or Indigestion Amitriptyline HCl (Elavil) 100 mg PO HS [facility] Last Admin: 05/07/18 20:22 Dose: 100 mg Amlodipine Besylate (Norvasc) 2.5 mg PO DAILY [facility] Last Admin: 05/08/18 08:42 Dose: 2.5 mg Artificial Tears (Tears Naturale) 0 drop EA EYE PRN PRN PRN Reason: Dry Eyes Aspirin (Ecotrin) 81 mg PO DAILY [facility] Last Admin: 05/08/18 08:42 Dose: 81 mg Clopidogrel Bisulfate (Plavix) 75 mg PO Q2DAYS [facility] Last Admin: 05/07/18 12:46 Dose: 75 mg Dextrose/Water (Dextrose 50%) 25 gm SLOW IVP PRN PRN PRN Reason: Hypoglycemia Ezetimibe (Zetia) 10 mg PO DAILY [facility] Last Admin: 05/08/18 08:42 Dose: 10 mg Glucagon (Glucagon) 1 mg IM PRN PRN PRN Reason: Hypoglycemia Guaifenesin (Robitussin Sf) 200 mg PO Q4H PRN PRN Reason: Cough Heparin Sodium (Porcine) (Heparin) 5,000 units SC TID [facility] Last Admin: 05/08/18 08:42 Dose: 5,000 units Hydralazine HCl (Apresoline) 10 mg SLOW IVP Q4H PRN PRN Reason: Systolic BP > 180 Ceftriaxone Sodium 1 gm/ (Sodium Chloride) 100 mls @ 200 mls/hr IVPB Q24HR [facility] [place] Last Admin: 05/08/18 08:48 Dose: 100 mls Dextrose/Water (D5w) 1,000 mls @ 0 mls/hr IV .Q0M PRN PRN Reason: Hypoglycemia Levofloxacin 750 mg/ Device 150 mls @ 100 mls/hr IVPB Q2DAYS [facility] Last Admin: 05/06/18 18:18 Dose: 150 mls Insulin Human Lispro (Humalog) 0 units SC .MODERATE SLIDING SC PRN PRN Reason: Moderate Correctional Scale Last Admin: 05/08/18 06:21 Dose: 4 unit Insulin Human Lispro (Humalog) 0 units SC .BEDTIME SLIDING SC PRN PRN Reason: Bedtime Correctional Scale Last Admin: 05/06/18 22:02 Dose: 2 unit Loperamide HCl (Imodium) 2 mg PO PRN PRN PRN Reason: Diarrhea/Loose Stools Loratadine (Claritin) 10 mg PO DAILYPRN PRN PRN Reason: Sinus Symptoms Magnesium Hydroxide (Milk Of Magnesium) 30 ml PO DAILYPRN PRN PRN Reason: Constipation Mineral Oil/White Petrolatum (Eucerin Cream) 0 gm TOP BIDPRN PRN PRN Reason: Dry Skin Ondansetron HCl (Zofran Odt) 4 mg PO Q6H PRN PRN Reason: Nausea/Vomiting Last Admin: 05/07/18 09:56 Dose: 4 mg Ondansetron HCl (Zofran) 4 mg IVP Q6H PRN PRN Reason: Nausea/Vomiting Phenol (Chloraseptic [place] 180 Ml Bot) 0 ml PO PRN PRN PRN Reason: Sore Throat Saccharomyces Boulardii (Florastor) 250 mg PO DAILY [facility] Last Admin: 05/08/18 08:41 Dose: 250 mg Senna (Senokot) 2 tab PO HSPRN PRN PRN Reason: Constipation Simvastatin (Zocor) 10 mg PO [facility] Last Admin: 05/07/18 20:38 Dose: 10 mg Sodium Chloride ([place] Nasal [place] 0.65%) 0 ml EA NARE QIDPRN PRN PRN Reason: Nasal Congestion Sodium Chloride (Flush - Normal Saline) 10 ml IVF Q12HR [facility] Last Admin: 05/08/18 08:43 Dose: 10 ml Sodium Chloride (Flush - Normal Saline) 10 ml IVF PRN PRN PRN Reason: Saline Flush Trazodone HCl (Desyrel) 25 mg PO [facility] Last Admin: 05/07/18 20:22 Dose: 25 mg Zolpidem Tartrate (Ambien) 5 mg PO HSPRN PRN PRN Reason: Insomnia
[2018-05-08] MEDS: Simvastatin 5 MG TAB PO SCH (20:31)
[2018-05-08] MEDS: Amitriptyline HCl 100 MG TAB PO SCH (21:36)
[2018-05-08] MEDS: traZODone HCl 50 MG TAB PO SCH (21:36)
[2018-05-09] MEDS: HYDROcodone/Acetaminophen 10/325 mg Tablet PO PRN ×3 (01:18→11:59)
[2018-05-09] MEDS: HumaLOG 300 UNITS/3 ML VIAL SC PRN (05:42)
[2018-05-09] MEDS: Amlodipine 5 MG TAB PO SCH (08:55)
[2018-05-09] MEDS: Aspirin 81 mg Enteric Coated Tablet PO SCH (08:56)
[2018-05-09] MEDS: cefTRIAXone\\ROCEPHIN 1 GM in Sodium Chloride 0.9% 100 ML IVPB SCH (08:56)
[2018-05-09] MEDS: Ezetimibe 10 MG TAB PO SCH (08:57)
[2018-05-09] MEDS: Saccharomyces boulardii 250 MG CAP PO SCH (08:58)
[2018-05-09] MEDS: Clopidogrel Bisulfate 75 MG TAB PO SCH (09:01)
[2018-05-09] MEDS: Heparin 5,000 UNITS/ML VIAL SC SCH (09:16)
[2018-05-09 11:13] VITALS: BP 146/55; TEMP 98.6
--- NOTE | 2018-05-09 11:14 | PDOC.PN ---
- Subjective Encounter Start Date: 05/09/18 Encounter Start Time: 08:20 Patient seen and examined. No new complaints. No overnight events - Objective Resuscitation Status: Resuscitation Status FULL:Full Resuscitation MAR Reviewed: Yes Vital Signs & Weight: Vital Signs (12 hours) Temp Pulse Resp BP Pulse Ox 05/09/18 11:13 98.6 F 78 18 146/55 H 94 L 05/09/18 07:11 98 F 88 16 149/70 H 93 L 05/09/18 04:00 98.8 F 85 18 157/74 H 90 L 05/09/18 00:00 99.1 F 91 16 163/74 H 96 Weight Admit Weight 108 lb 7 oz Weight 112 lb 9 oz I&O: 05/08/18 05/09/18 05/10/18 06:59 06:59 06:59 Intake Total 360 Balance 360 Result Diagrams: 05/08/18 07:54 05/08/18 07:54 Additional Labs: Accuchecks 05/09/18 05/08/18 05/08/18 04:30 20:20 16:59 POC Glucose 213 H 269 H 152 H 05/08/18 11:25 POC Glucose 227 H Phys Exam - Physical Examination Constitutional: NAD HEENT: PERRLA, moist MMs, sclera anicteric Neck: no JVD, supple Respiratory: no wheezing, no rales, no rhonchi Cardiovascular: RRR, no significant murmur, no rub Gastrointestinal: soft, non-tender, no distention, positive bowel sounds Musculoskeletal: no edema, pulses present right knee with dressing, brace+ Neurological: non-focal, normal sensation, moves all 4 limbs Psychiatric: normal affect, A&O x 3 Skin: no rash, normal turgor Dx/Plan (1) Acute kidney failure Status: Resolved (2) Acute metabolic encephalopathy Code(s): G93.41 - METABOLIC ENCEPHALOPATHY Status: Resolved (3) Hyperkalemia Code(s): E87.5 - HYPERKALEMIA Status: Resolved (4) Hyponatremia Code(s): E87.1 - HYPO-OSMOLALITY AND HYPONATREMIA Status: Resolved (5) Metabolic acidosis Code(s): E87.2 - ACIDOSIS Status: Resolved (6) Sepsis with acute organ dysfunction Code(s): A41.9 - SEPSIS, UNSPECIFIED ORGANISM; R65.20 - SEVERE SEPSIS WITHOUT SEPTIC SHOCK Status: Acute (7) UTI (urinary tract infection) Status: Acute (8) Anemia, normocytic normochromic Code(s): D64.9 - ANEMIA, UNSPECIFIED Status: Chronic (9) CAD (coronary artery disease) Code(s): I25.10 - ATHSCL HEART DISEASE OF [place] CORONARY ARTERY W/O ANG PCTRS Status: Chronic (10) Diabetes type 2, controlled Code(s): E11.9 - TYPE 2 DIABETES MELLITUS WITHOUT COMPLICATIONS Status: Chronic (11) Hypertension Code(s): I10 - ESSENTIAL (PRIMARY) HYPERTENSION Status: Chronic (12) Patella fracture Code(s): S82.009A - UNSP FRACTURE OF UNSP PATELLA, INIT FOR CLOS FX Status: Acute Qualifiers: Fracture type: open Laterality: right Fracture healing: with delayed healing Comment: s/p surgery (13) Anxiety and depression Code(s): F41.9 - ANXIETY DISORDER, UNSPECIFIED; F32.9 - MAJOR DEPRESSIVE DISORDER, SINGLE EPISODE, UNSPECIFIED Status: Chronic (14) Diabetic neuropathy Code(s): E11.40 - TYPE 2 DIABETES MELLITUS WITH DIABETIC NEUROPATHY, UNSP Status: Chronic (15) PVD (peripheral vascular disease) Code(s): I73.9 - PERIPHERAL VASCULAR DISEASE, UNSPECIFIED Status: Chronic - Plan cont current plan of care, continue antibiotics * medication reviewed as below * symptomatic treatment * see discharge danelle. Review of Systems - Review of Systems Eyes: negative: Pain, Vision Change, Conjunctivae Inflammation, Eyelid Inflammation, Redness, Other ENT: negative: Ear Pain, Ear Discharge, Nose Pain, Nose Discharge, Nose Congestion, Mouth Pain, Mouth Swelling, Throat Pain, Throat Swelling, Other Respiratory: negative: Cough, Dry, Shortness of Breath, Hemoptysis, SOB with Excertion, Pleuritic Pain, Sputum, Wheezing Cardiovascular: negative: chest pain, palpitations, orthopnea, paroxysmal nocturnal dyspnea, edema, light headedness, other Gastrointestinal: negative: Nausea, Vomiting, Abdominal Pain, Diarrhea, Constipation, Melena, Hematochezia, Other Genitourinary: negative: Dysuria, Frequency, Incontinence, Hematuria, Retention , Other Musculoskeletal: negative: Neck Pain, Shoulder Pain, Arm Pain, Back Pain, Hand Pain, Leg Pain, Foot Pain, Other - Medications/Allergies Allergies/Adverse Reactions: Allergies Allergy/AdvReac Type Severity Reaction Status Date / Time No Known Drug Allergies Allergy Verified 04/23/18 13:34 Medications: Current Medications Acarbose (Precose) 25 mg PO TID-[facility] Last Admin: 05/09/18 09:00 Dose: 25 mg Acetaminophen (Tylenol) 650 mg PO Q4H PRN PRN Reason: Headache/Fever or Pain Hydrocodone Bitart/Acetaminophen ([place] 10/325) 1 tab PO Q4H PRN PRN Reason: Severe Pain (7-10) Last Admin: 05/09/18 09:01 Dose: 1 tab Al Hydroxide/Mg Hydroxide (Maalox) 30 ml PO Q6H PRN PRN Reason: Heartburn or Indigestion Amitriptyline HCl (Elavil) 100 mg PO [facility] Last Admin: 05/08/18 21:36 Dose: 100 mg Amlodipine Besylate (Norvasc) 2.5 mg PO DAILY [facility] Last Admin: 05/09/18 08:55 Dose: 2.5 mg Artificial Tears (Tears Naturale) 0 drop EA EYE PRN PRN PRN Reason: Dry Eyes Aspirin (Ecotrin) 81 mg PO DAILY [facility] Last Admin: 05/09/18 08:56 Dose: 81 mg Clopidogrel Bisulfate (Plavix) 75 mg PO Q2DAYS [facility] Last Admin: 05/09/18 09:01 Dose: 75 mg Dextrose/Water (Dextrose 50%) 25 gm SLOW IVP PRN PRN PRN Reason: Hypoglycemia Ezetimibe (Zetia) 10 mg PO DAILY [facility] Last Admin: 05/09/18 08:57 Dose: 10 mg Glucagon (Glucagon) 1 mg IM PRN PRN PRN Reason: Hypoglycemia Guaifenesin (Robitussin Sf) 200 mg PO Q4H PRN PRN Reason: Cough Heparin Sodium (Porcine) (Heparin) 5,000 units SC TID [facility] Last Admin: 05/09/18 09:16 Dose: 5,000 units Hydralazine HCl (Apresoline) 10 mg SLOW IVP Q4H PRN PRN Reason: Systolic BP > 180 Ceftriaxone Sodium 1 gm/ (Sodium Chloride) 100 mls @ 200 mls/hr IVPB Q24HR [facility] Last Admin: 05/09/18 08:56 Dose: 100 mls Dextrose/Water (D5w) 1,000 mls @ 0 mls/hr IV .Q0M PRN PRN Reason: Hypoglycemia Levofloxacin 750 mg/ Device 150 mls @ 100 mls/hr IVPB Q2DAYS [facility] Last Admin: 05/08/18 17:02 Dose: 150 mls Insulin Human Lispro (Humalog) 0 units SC .MODERATE SLIDING SC PRN PRN Reason: Moderate Correctional Scale Last Admin: 05/08/18 12:52 Dose: 4 unit Insulin Human Lispro (Humalog) 0 units SC .BEDTIME SLIDING SC PRN PRN Reason: Bedtime Correctional Scale Last Admin: 05/09/18 05:42 Dose: 2 unit Loperamide HCl (Imodium) 2 mg PO PRN PRN PRN Reason: Diarrhea/Loose Stools Loratadine (Claritin) 10 mg PO DAILYPRN PRN PRN Reason: Sinus Symptoms Magnesium Hydroxide (Milk Of Magnesium) 30 ml PO DAILYPRN PRN PRN Reason: Constipation Mineral Oil/White Petrolatum (Eucerin Cream) 0 gm TOP BIDPRN PRN PRN Reason: Dry Skin Ondansetron HCl (Zofran Odt) 4 mg PO Q6H PRN PRN Reason: Nausea/Vomiting Last Admin: 05/07/18 09:56 Dose: 4 mg Ondansetron HCl (Zofran) 4 mg IVP Q6H PRN PRN Reason: Nausea/Vomiting Phenol (Chloraseptic [place] 180 Ml Bot) 0 ml PO PRN PRN PRN Reason: Sore Throat Saccharomyces Boulardii (Florastor) 250 mg PO DAILY [facility] Last Admin: 05/09/18 08:58 Dose: 250 mg Senna (Senokot) 2 tab PO HSPRN PRN PRN Reason: Constipation Simvastatin (Zocor) 10 mg PO [facility] Last Admin: 05/08/18 20:31 Dose: 10 mg Sodium Chloride ([place] Nasal [place] 0.65%) 0 ml EA NARE QIDPRN PRN PRN Reason: Nasal Congestion Sodium Chloride (Flush - Normal Saline) 10 ml IVF Q12HR [facility] Last Admin: 05/09/18 09:17 Dose: 10 ml Sodium Chloride (Flush - Normal Saline) 10 ml IVF PRN PRN PRN Reason: Saline Flush Trazodone HCl (Desyrel) 25 mg PO [facility] Last Admin: 05/08/18 21:36 Dose: 25 mg Zolpidem Tartrate (Ambien) 5 mg PO HSPRN PRN PRN Reason: Insomnia
--- NOTE | 2018-05-09 12:45 | DIS ---
DATE OF ADMISSION: 05/06/2018 DATE OF DISCHARGE: 05/09/2018 PRIMARY CARE PHYSICIAN: Jay Thomason M.D. DISCHARGE DISPOSITION: Home with home health. PRIMARY DISCHARGE DIAGNOSES: Urinary tract infection, sepsis with acute organ dysfunction, acute kid luis failure, metabolic acidosis, hyponatremia, hyperkalemia, acute metabolic encephalopathy. SECONDARY DISCHARGE DIAGNOSES: Recent patellar fracture required surgery with a patellectomy, normoc ytic normochromic anemia, significant peripheral vascular disease, anxiety and depression, coronary a rtery disease, diabetes type 2, diabetic neuropathy, hypertension. PRIMARY PROCEDURE/OPERATION: None. RADIOLOGICAL INVESTIGATION: Chest x-ray normal. CT brain normal. Shoulder x-ray showed no acute fr acture. SIGNIFICANT LABORATORY DATA: WBC 9.4, hemoglobin 7.9, platelets 759. Sodium 136, potassium 4.6, BUN 11, creatinine 0.66, calcium 8.7, AST 8, ALT less than 7, alkaline phosphatase 79, albumin 2.6. Uri nalysis suggestive of infection. DISCHARGE MEDICATIONS: Plavix 75 mg every other day, acarbose 25 mg t.i.d., amitriptyline 100 mg p.o . at bedtime, amlodipine 2.5 mg p.o. daily, aspirin 81 mg p.o. daily, Invokamet XR one tablet p.o. b.i.d., Zetia 10 mg p.o. daily, Humalog 75/25 subcu b.i.d. as per sliding scale, lisinopril 20 mg p.o. b.i.d., Zocor 10 mg p.o. at bedtime, tramadol 50 mg 1 or 2 tablets q.6 hourly p.r.n., trazodo ne 25 mg p.o. at bedtime, Cipro 250 mg p.o. b.i.d. for 10 days, doxycycline 100 mg p.o. b.i.d. for 10 days, Florastor 250 mg p.o. daily for 10 days. CONTRAINDICATIONS: None. CODE STATUS: FULL CODE. INPATIENT HOME HEALTH SCHEDULER: Dr. Echevarria and group were following while in hospital. TEST RESULTS PENDING ON DISCHARGE: None. ALLERGIES: No known drug allergy. DISCHARGE PLAN: Post hospital, the patient is instructed to follow up with primary care physician in 1 week. The patient will follow up with Dr. Echevarria as instructed. HOSPITAL COURSE: A 67-year-old female who had a fall and subsequently she had a patellar fracture an d required a surgery as an outpatient basis by Dr. Echevarria for patellectomy and tendon repair. Subs equently, she was having wound care as well as brace on her right lower extremity. Since then, the p atient was going downhill. She was having poor appetite. She was not eating and drinking enough. S he was taking potassium supplement and lisinopril. On admission, she was found with acute kidney salina lure and hyperkalemia. Hyperkalemia was treated with a cocktail treatment in the emergency room. Carlos schmitz was admitted to telemetry floor. We continued IV fluid and her renal function improved. Subsequen tly, we restarted the patient all home medication while in the hospital. The patient was empirically treated with Rocephin and Levaquin for her urinary tract infection. Unfortunately, culture was not sent from emergency room. We changed to Cipro and upon discharge patient has significant improvement . While in hospital, she remained afebrile. She has neuropathic pain in her both feet which is cont rolled by amitriptyline. The patient has pain in her right knee over surgical site. Orthopedic was following while in hospital. At this point, they do not have any more recommendation other than woun d care and followup as an outpatient basis. If patient's condition does not improve significantly, shane alexander patient will end up with amputation as per orthopedic recommendations. While in hospital, luis felipe lynn remained hemodynamically stable and asymptomatic. She did not want to go to any rehab or placement and rather she wanted to go home. All new medication prescription sent to her pharmacy. The patient is seen and examined at bedside to day. Please see my progress note from today for further detail.
[2018-05-09 13:16] VITALS: BMI 22.7
--- NOTE | 2018-05-10 12:23 | EKG ---
Test Reason : [place] [id number] Blood Pressure : / mmHG Vent. Rate : 088 BPM Atrial Rate : 088 BPM P-R Int : 140 ms QRS Dur : 126 ms QT Int : 384 ms P-R-T Axes : 042 081 032 degrees QTc Int : 464 ms Normal sinus rhythm Right bundle branch block Abnormal ECG Confirmed by SHEREEN MARIE ([id number]), commissioned defence [employer] officer DEVENDRA BRITO ([id number]) on 05/10/2018 12:23:13 PM Referred By: Confirmed By:SHEREEN MARIE
== END 2018-05-09 13:15 | disposition home health service (06) | DRG 871 ==
LOC: ERS 05:27 → ERHOLD 06:57 → 2NO 12:13 → T4-A 05-07 17:05
PROVIDERS: ADMIT Hospitalist; ATTEND Hospitalist
DX: A41.9 Sepsis, unspecified organism (principal); G93.41 Metabolic encephalopathy; N17.9 Acute kidney failure, unspecified; N39.0 Urinary tract infection, site not specified; E87.1 Hypo-osmolality and hyponatremia; E87.2 Acidosis; R65.20 Severe sepsis without septic shock; E11.9 Type 2 diabetes mellitus without complications; E87.5 Hyperkalemia; I10 Essential (primary) hypertension; D64.9 Anemia, unspecified; Z98.890 Other specified postprocedural states; I25.10 Atherosclerotic heart disease of native coronary artery without angina pectoris; E11.40 Type 2 diabetes mellitus with diabetic neuropathy, unspecified; E11.51 Type 2 diabetes mellitus with diabetic peripheral angiopathy without gangrene; L98.8 Other specified disorders of the skin and subcutaneous tissue; E78.5 Hyperlipidemia, unspecified; F41.8 Other specified anxiety disorders; F17.290 Nicotine dependence, other tobacco product, uncomplicated; R29.6 Repeated falls
CPT/HCPCS: 36415; 36416; 51701; 70450; 71045; 80048; 80053; 81003; 81015; 82553; 83690; 83880; 84484; 85025; 93005; 96361; 96365; 96372; 96375; 99406; A4216; A4353; G8978-GP-CN; G8979-GP-CL; G8987-GO-CM; G8988-GO-CJ; J0696; J1644; J1815; J1956; J7050; Q0162

== ENCOUNTER 2018-05-14 10:06 | Inpatient (IN) | payer MEDICARE ==
[2018-05-14] MEDS ORDERED: CEFAZOLIN/Water 2 GM/20 ML SYRINGE ONE (10:22)
[2018-05-14 12:20] LABS: #Eosinphils 0.2 thou/uL (0.0-0.7); #Lymphocytes 2.2 thou/uL (1.20-3.40); #Neutrophils 8.9 thou/uL (1.40-6.50); %Basophils 0.4 % (0.0-1.0); %Eosinophils 1.6 % (0.0-10.0); %Lymphocytes 17.6 % (21.0-51.0); %Monocytes 8.2 % (0.0-10.0); %Neutrophils 72.2 % (42.0-75.0); Hemoglobin 8.5 g/dL (12.0-16.0); Mean Corpuscular HGB CONC 31.9 g/dL (32.0-36.0); Mean Corpuscular Hemoglobin 29.1 pg (27.0-31.0); Mean Corpuscular Volume 91.2 fL (78.0-98.0); Mean Platelet Volume 6.1 fL (7.4-10.4); Platelet Count 611 thou/uL (130-400); RBC Distribution Width 13.5 % (11.5-14.5); Red Blood Cell (RBC) Count 2.91 mill/uL (4.20-5.40); White Blood Cell (WBC) Count 12.3 thou/uL (4.8-10.8)
[2018-05-14] MEDS ORDERED: Fentanyl 100 MCG/2 ML VIAL ONE ×2 (12:31→14:01)
[2018-05-14 12:44] LABS: Anion Gap 14 mmol/L (10-20); BUN (Urea Nitrogen) 40 mg/dL (9.8-20.1); Calc. Creatinine Clearance 52 mL/min (70-130); Calcium 8.9 mg/dL (7.8-10.44); Carbon Dioxide 23 mmol/L (23-31); Chloride 97 mmol/L (98-107); Estimated GFR-MDRD 63; Glucose 194 mg/dL (80-115); Potassium 5.1 mmol/L (3.5-5.1); Sodium 129 mmol/L (136-145)
[2018-05-14] MEDS ORDERED: Acetaminophen 325 MG TAB PO PRN (13:32)
[2018-05-14] MEDS ORDERED: Communication Order-Pharmacy FS SCH (13:45)
--- NOTE | 2018-05-14 13:54 | OP ---
DATE OF PROCEDURE: 05/14/2018 OPERATION: Debridement of right anterior knee. PREOPERATIVE DIAGNOSIS: Right anterior knee skin necrosis. POSTOPERATIVE DIAGNOSIS: Right anterior knee skin necrosis. COMPLICATIONS: None. ESTIMATED BLOOD LOSS: Minimal. SURGEON: Lázaro Spears M.D. ANIMATION PRODUCER: Grady Srinivasan PA-C. IMPLANTS: None. INDICATIONS: Ms. Kumar is a 67-year-old female, who recently underwent a patella procedure for garcia lar fracture. She had advancement of the patellar tendon. Unfortunately, she has developed full-thi ckness skin loss over the anterior knee with necrosis and gangrenous tissue. She has been indicated for debridement of the knee wound to hopefully eradicate infection and removed nonviable tissue to al low healing. Risks have been reviewed in detail. She has elected to proceed with the operation. DESCRIPTION OF OPERATION: Ms. Kumar was identified in the preoperative holding area. Her correct ex tremity was marked. She was carried to the operating room. She was positioned supine. General anes thesia was induced. A multidisciplinary timeout was performed. The right lower extremity was preppe d and draped in sterile fashion. We began the procedure with anterior knee debridement. We removed approximately 4 cm x 6 cm of the anterior knee eschar with gangrenous tissue. This tracks down deepl y through the skin to the patellar tendon. The tissues were debrided deeply with a knife as well as rongeur and curette. We removed some suture material as well as a mersilene tape beneath the wound, which was exposed. We thoroughly irrigated with copious lavage. We then packed the wound with a Bet adine-soaked sponge. A sterile dressing was applied. The patient was taken to the recovery room in good condition at this point without complication.
[2018-05-14] MEDS ORDERED: Lidocaine 1% PF 5 ML VIAL ONE (15:40)
[2018-05-14] MEDS ORDERED: PROPOFOL 200 MG/20 ML VIAL ONE (15:40)
[2018-05-14] MEDS: Fentanyl 100 MCG/2 ML VIAL SLOW IVP PRN (16:57)
[2018-05-14] MEDS ORDERED: HumaLOG 300 UNITS/3 ML VIAL SC PRN (17:56)
[2018-05-14] MEDS ORDERED: Dextrose 50% Abboject 50 ML SYRINGE SLOW IVP PRN (17:56)
[2018-05-14] MEDS ORDERED: Dextrose 5% in Water 1,000 ML IV PRN (17:56)
[2018-05-14] MEDS ORDERED: Clopidogrel Bisulfate 75 MG TAB PO SCH (18:00)
[2018-05-14] MEDS: traMADol HCl 50 MG TAB PO PRN (18:42)
[2018-05-14] MEDS: Sodium Chloride 0.9% 1,000 ML IV SCH (18:43)
[2018-05-14] MEDS: CEFAZOLIN/Water 2 GM/20 ML SYRINGE SLOW IVP SCH (19:03)
[2018-05-14] MEDS: Simvastatin 5 MG TAB PO SCH (20:14)
[2018-05-14] MEDS: traZODone HCl 50 MG TAB PO SCH (20:14)
[2018-05-14] MEDS: Aspirin 81 mg Enteric Coated Tablet PO SCH (20:14)
[2018-05-14] MEDS: Ezetimibe 10 MG TAB PO SCH (20:14)
[2018-05-14] MEDS: Cipro 250 MG TAB PO SCH (20:14)
[2018-05-14] MEDS: Doxycycline 100 MG CAP PO SCH (20:14)
--- NOTE | 2018-05-14 20:17 | HP ---
DATE OF CONSULTATION: 05/14/2018 PRIMARY CARE PHYSICIAN: Jay Thomason M.D. ADMITTING PHYSICIAN: Dr. Echevarria. REASON FOR ADMISSION: Right anterior knee skin necrosis. REASON FOR CONSULTATION: Medical management. HISTORY OF PRESENT ILLNESS: Ms. Kumar is a pleasant 67-year-old female that has a history of diabete s mellitus as well as hypertension and coronary artery disease. She recently had an injury in which she fractured her right patella and underwent a repair of the fracture and in the interim she develop ed a urinary tract infection with sepsis and was recently admitted to our facility for this. She was treated and released and had gone to follow up orthopedic appointment for her knee and it was noted by the orthopedist that there was some area that looked necrotic and they were concerned and felt rl t needed to be debrided some. For this reason, she was admitted and has undergone right anterior kne e debridement. The Hospitalist Service has been consulted for medical management. The patient herse lf says that she feels a little bit dizzy off and on and has some pain in the right knee, but otherwi se no other complaints. She denies any chest pain or shortness of breath, no PND, no orthopnea, no a bdominal pain, no nausea, no vomiting. However, her daughter who is at the bedside is concerned that her appetite is poor and also the daughter is concerned about soreness in her right ankle. REVIEW OF SYSTEMS: All systems were reviewed and are negative except for that mentioned in the histo ry of present illness. PAST MEDICAL HISTORY: Significant for coronary artery disease, diabetes mellitus, hypertension, anxi ety, and depression. PAST SURGICAL HISTORY: She has had a stent placed, coronary stents, left leg surgery, hernia repair, cholecystectomy, hysterectomy, right patellectomy and right patellar tendon repair as well as an eye surgery. ALLERGIES: No known drug allergies. SOCIAL HISTORY: She is . She has smoked cigarettes occasionally. Denies any alcohol use. H as 4 children. CODE STATUS: FULL CODE and her children are her surrogate decision makers. FAMILY HISTORY: Significant for diabetes in her grandfather as well as cancer and hypertension. Gra ndmother had kidney failure, high cholesterol, and hypertension. CURRENT MEDICATIONS: Include triamterene/hydrochlorothiazide 37.5/25 daily, Humulin 75/25 2-15 units twice a day, acarbose 25 mg t.i.d., amlodipine 2.5 mg daily, amitriptyline 100 mg at bedtime, Invoka met XR mg twice a day, aspirin 81 mg daily, Plavix 0.5 mg every other day, Cipro 250 mg twice a day, doxycycline 100 mg every other q.12 hours, Zetia 5 mg daily, Florastor 250 mg daily, lisinopr il 20 mg twice a day, simvastatin 10 mg at bedtime, trazodone 25 mg at bedtime and tramadol 50 mg q.6 hours as needed. PHYSICAL EXAMINATION: GENERAL: She is alert and oriented. She appears to be in no acute distress. She is well-developed. She does appear to be a bit cachectic; however, her BMI is normal at 23.2. VITAL SIGNS: Blood pressure was 177/70, heart rate in the 70s, respiratory rate of 16, and she is af ebrile. HEENT: Pupils are equal, round, and reactive. Extraocular muscles are intact. Her sclerae are anic teric. Throat: There is no erythema, no exudate. She has dry mucous membranes and she has poor den tition. NECK: There is no adenopathy, no bruits. LUNGS: Clear to auscultation. There is no wheezing, no rales. CARDIOVASCULAR: She has a normal S1 and S2. There was no S3 or S4. No murmurs, clicks, no rubs. ABDOMEN: Soft, it is nontender, nondistended. Positive for bowel sounds. There is no rebound, no g uarding. EXTREMITIES: No muscle pains or no muscle tenderness. No crepitus in the left knee joint. There wa s some point tenderness on the lateral malleolus on the right lower extremity. NEUROLOGIC: Her cranial nerves II-XII are intact. Muscle strength is intact. SKIN AND INTEGUMENT: There are no skin changes. No lesions. Her dorsalis pedis pulses were diminis hed. However, her feet are warm and dry. Capillary refill was slightly diminished. LABORATORY DATA: Sodium 129, potassium 5.1, chloride is 97, CO2 is 23, BUN of 40, creatinine 0.89, g lucose is 194. White blood cell count 12.3, hemoglobin 8.5, hematocrit is 26.6, and platelet count w as 611. ASSESSMENT AND PLAN: This is a pleasant 67-year-old female who is being admitted by the Orthopedic [facility] for debridement of the right patella. She has had surgery and is currently getting prepared f or physical therapy today. With regards to her diabetes, we will continue the Invokana and her Humal og 75/25 as well as sliding scale insulin. She may need to use her own medications. 1. Hypertension. We will treat her with p.r.n. blood pressure medications for tonight as she appear s to be a little volume depleted and then restart the lisinopril tomorrow and we will hold the triamt erene/hydrochlorothiazide due to moderate hyponatremia. 2. Hyponatremia. I suspect this is due to volume depletion and as such, we will give her some IV sa line, hold on the thiazide diuretic and restart the lisinopril tomorrow. 3. Coronary artery disease. This appears to be controlled and stable. Further recommendations will be as per the Orthopedic Team.
[2018-05-14] MEDS ORDERED: Prevnar 13-Val Conj/PF 0.5 ML SYRINGE IM ONE (21:00)
[2018-05-15] MEDS: CEFAZOLIN/Water 2 GM/20 ML SYRINGE SLOW IVP SCH ×3 (01:08→17:19)
[2018-05-15] MEDS: traMADol HCl 50 MG TAB PO PRN ×3 (01:24→14:06)
[2018-05-15 06:01] LABS: #Eosinphils 0.4 thou/uL (0.0-0.7); #Lymphocytes 2.9 thou/uL (1.20-3.40); #Monocytes 1.3 thou/uL (0.11-0.59); #Neutrophils 5.9 thou/uL (1.40-6.50); %Basophils 0.4 % (0.0-1.0); %Eosinophils 3.6 % (0.0-10.0); %Monocytes 12.2 % (0.0-10.0); %Neutrophils 55.7 % (42.0-75.0); Mean Corpuscular HGB CONC 31.9 g/dL (32.0-36.0); Mean Corpuscular Hemoglobin 29.5 pg (27.0-31.0); Mean Corpuscular Volume 92.3 fL (78.0-98.0); Platelet Count 539 thou/uL (130-400); RBC Distribution Width 13.6 % (11.5-14.5); Red Blood Cell (RBC) Count 2.73 mill/uL (4.20-5.40); White Blood Cell (WBC) Count 10.5 thou/uL (4.8-10.8)
[2018-05-15 06:27] LABS: ALT (SGPT) Less than 7 U/L (8-55); AST (SGOT) 13 U/L (5-34); Albumin 2.7 g/dL (3.4-4.8); Alkaline Phosphatase 89 U/L (40-150); Anion Gap 11 mmol/L (10-20); BUN (Urea Nitrogen) 24 mg/dL (9.8-20.1); Bilirubin, Total 0.3 mg/dL (0.2-1.2); Calc. Creatinine Clearance 55 mL/min (70-130); Calcium 8.6 mg/dL (7.8-10.44); Carbon Dioxide 28 mmol/L (23-31); Chloride 99 mmol/L (98-107); Estimated GFR-MDRD 75; Glucose 149 mg/dL (80-115); Potassium 4.3 mmol/L (3.5-5.1); Protein, Total 5.7 g/dL (6.0-8.3); Sodium 134 mmol/L (136-145)
[2018-05-15] MEDS ORDERED: METFORMIN HCL PO SCH (08:00)
[2018-05-15] MEDS ORDERED: CANAGLIFLOZIN PO SCH (08:00)
[2018-05-15] MEDS ORDERED: [UNRECOGNIZED DRUG - OTHER] PO SCH (08:00)
[2018-05-15] MEDS: Sodium Chloride 0.9% 1,000 ML IV SCH (08:13)
[2018-05-15] MEDS: metFORMIN XR 500 MG TAB PO SCH ×2 (08:17→17:18)
[2018-05-15] MEDS: Saccharomyces boulardii 250 MG CAP PO SCH (08:17)
[2018-05-15] MEDS: Amlodipine 5 MG TAB PO SCH (08:18)
[2018-05-15] MEDS: Clopidogrel Bisulfate 75 MG TAB PO SCH (08:18)
[2018-05-15] MEDS: Cipro 250 MG TAB PO SCH ×2 (08:18→19:42)
[2018-05-15] MEDS: Doxycycline 100 MG CAP PO SCH ×2 (08:18→19:42)
[2018-05-15] MEDS: Enoxaparin Sodium 40 MG/0.4 ML SYRINGE SC SCH (08:19)
[2018-05-15] MEDS: Aspirin 81 mg Enteric Coated Tablet PO SCH ×2 (08:19→19:42)
[2018-05-15] MEDS ORDERED: Aspirin 81 mg Enteric Coated Tablet PO SCH (09:00)
[2018-05-15] MEDS: HumaLOG 300 UNITS/3 ML VIAL SC PRN (12:27)
[2018-05-15] MEDS ORDERED: Acetaminophen/Codeine 30-300mg Tablet PO PRN (12:45)
[2018-05-15 13:00] VITALS: BMI 21.4
--- NOTE | 2018-05-15 14:24 | PQF ---
DATE: 05-15-18 ATTN: DR. MAMTA HARMON Please exercise your independent, professional judgment in responding to the clarification form. Clinical indicators are provided on the bottom of this form for your review Please check appropriate box(s): [x ] Excisional Debridement: [ x ] Excised [ x ] Cut away [ ] Other: Depth / layer: (deepest layer of debridement): [ ] Skin[ ] SubQ Tissue [x ] Fascia [ ] Muscle [ ] Tendon [ ] Bone Appearance of wound: (e.g., down to fresh bleeding tissue, etc.)___ Margins: (please specify): / x x Instruments used: [ ] Scissors [ ] Scalpel [ ] Curette [ ] Soft tissue clipper [ ] Other: [ ] Non-excisional Debridement: (Removal by flushing, brushing, chemical, or washing) Depth / layer: (deepest layer of debridement): [ ] Skin[ ] Subcutaneous [ ] Fascia [ ] Muscle [ ] Tendon [ ] Bone [ ] Incision and Drainage only (No Debridement): Depth:[ ] Skin [ ] Subcutaneous [ ] Fascia [ ] Muscle [ ] Tendon [ ] Bone [ ] Escharectomy [ ] Other procedure diagnosis [ ] Unable to determine For continuity of documentation, please document condition throughout progress notes and discharge summary. Thank You. CLINICAL INDICATORS - SIGNS / SYMPTOMS / LABS PROCEDURE 05-14-18: DEBRIDEMENT OF RIGHT ANTERIOR KNEE PROCEDURE 05-14-18: WE REMOVED APPROXIMATELY 4 CM X 6 CM OF THE ANTERIOR KNEE ESCHAR WITH ANTERIOR KNEE DEBRIDEMENT. THIS TRACKS DOWN DEEPLY THROUGH THE SKIN TO THE PATELLAR TENDON. THE TISSUES WERE DEBRIDED DEEPLY WITH A KNIFE WELL RONGEUR AND CURETTE RISK FACTORS: PROCEDURE 05-14-18: RIGHT ANTERIOR KNEE SKIN NECROSIS TREATMENTS: PROCEDURE 05-14-18: DEBRIDEMENT OF RIGHT ANTERIOR KNEE (This form is maintained as a part of the permanent medical record) 2014 [employer]. All Rights Reserved [email or web address] Office: [phone] [facility]
[2018-05-15] MEDS: Fentanyl 100 MCG/2 ML VIAL SLOW IVP PRN (14:30)
[2018-05-15] MEDS: Acetaminophen/Codeine 30-300mg Tablet PO PRN ×2 (16:01→20:49)
--- NOTE | 2018-05-15 17:09 | PDOC.PN ---
- Subjective Encounter Start Date: 05/15/18 Encounter Start Time: 17:07 Ms. Kumar was seen in follow-up of medical management following knee surgery. She notes some soreness in her knee, after walking some. She says her appetite has improved some. - Objective MAR Reviewed: Yes Vital Signs & Weight: Vital Signs (12 hours) Temp Pulse Resp BP BP Pulse Ox 05/15/18 15:25 97.9 F 81 16 115/61 95 05/15/18 11:10 98.7 F 80 16 149/66 H 97 05/15/18 08:18 153/73 H 05/15/18 08:13 95 05/15/18 07:15 98.5 F 78 22 H 153/73 H 95 Weight Admit Weight 110 lb Weight 110 lb I&O: 05/14/18 05/15/18 05/16/18 06:59 06:59 06:59 Intake Total 1300 Balance 1300 Result Diagrams: 05/15/18 05:33 05/15/18 05:33 Additional Labs: Accuchecks 05/15/18 05/14/18 05/14/18 11:06 18:21 12:41 POC Glucose 321 H 210 H 203 H 05/14/18 11:23 POC Glucose 222 H Phys Exam - Physical Examination HEENT: PERRLA Respiratory: no wheezing, no rales, no rhonchi, clear to auscultation bilateral Cardiovascular: RRR, no significant murmur, no rub Gastrointestinal: soft, non-tender, no distention, positive bowel sounds Musculoskeletal: no edema bruising around the right ankle, FROM- passive, decrease doriflex-active pulses are non-palpable- feet warm- Deviation from normal: capillary refill >2 seconds Dx/Plan (1) Diabetes type 2, controlled Code(s): E11.9 - TYPE 2 DIABETES MELLITUS WITHOUT COMPLICATIONS Status: Chronic (2) Hyponatremia Code(s): E87.1 - HYPO-OSMOLALITY AND HYPONATREMIA Status: Resolved (3) CAD (coronary artery disease) Code(s): I25.10 - ATHSCL HEART DISEASE OF [place] CORONARY ARTERY W/O ANG PCTRS Status: Chronic (4) Diabetic neuropathy Code(s): E11.40 - TYPE 2 DIABETES MELLITUS WITH DIABETIC NEUROPATHY, UNSP Status: Chronic (5) Hypertension Code(s): I10 - ESSENTIAL (PRIMARY) HYPERTENSION Status: Chronic (6) Patella fracture Code(s): S82.009A - UNSP FRACTURE OF UNSP PATELLA, INIT FOR CLOS FX Status: Acute Qualifiers: Fracture type: open Laterality: right Fracture healing: with delayed healing Comment: s/p surgery - Plan * DM- blood glucose is a bit labile, but mostly elevated- will add low dose Lantus * Hyponatremia- serum sodium has improved with hydration- will discontinue IV fluids * HTN- blood pressure is within an acceptable range- will continue to hold the diuretic * Necrotic knee wound- continue local wound care- a wound vac has been placed * PT/OT.
[2018-05-15] MEDS ORDERED: Lisinopril 20 MG TAB PO SCH (18:00)
[2018-05-15] MEDS: Simvastatin 5 MG TAB PO SCH (19:42)
[2018-05-15] MEDS: Ezetimibe 10 MG TAB PO SCH (19:42)
[2018-05-15] MEDS: traZODone HCl 50 MG TAB PO SCH (19:42)
[2018-05-15] MEDS: Ondansetron HCl/PF 4 MG/2 ML Vial IV PRN (19:42)
[2018-05-16] MEDS: CEFAZOLIN/Water 2 GM/20 ML SYRINGE SLOW IVP SCH ×3 (01:46→17:48)
[2018-05-16] MEDS: Acetaminophen/Codeine 30-300mg Tablet PO PRN ×4 (01:48→20:57)
[2018-05-16] MEDS ORDERED: Insulin Glargine 6 UNITS in Pre-Filled Syringe 1 EACH SC SCH (09:00)
[2018-05-16] MEDS: Polyethylene Glycol 3350 17 GM Packet PO SCH (09:21)
[2018-05-16] MEDS: Enoxaparin Sodium 40 MG/0.4 ML SYRINGE SC SCH (09:22)
[2018-05-16] MEDS: Cipro 250 MG TAB PO SCH ×2 (09:22→20:02)
[2018-05-16] MEDS: metFORMIN XR 500 MG TAB PO SCH ×2 (09:22→16:34)
[2018-05-16] MEDS: Lisinopril 20 MG TAB PO SCH ×2 (09:22→20:00)
[2018-05-16] MEDS: Saccharomyces boulardii 250 MG CAP PO SCH (09:23)
[2018-05-16] MEDS: Senokot S 8.6-50 MG TAB PO SCH ×2 (09:23→20:02)
[2018-05-16] MEDS: Amlodipine 5 MG TAB PO SCH (09:23)
[2018-05-16] MEDS: Doxycycline 100 MG CAP PO SCH ×2 (09:23→20:00)
[2018-05-16] MEDS: Aspirin 81 mg Enteric Coated Tablet PO SCH ×2 (09:23→20:02)
--- NOTE | 2018-05-16 14:41 | PDOC.PN ---
- Subjective Encounter Start Date: 05/16/18 Encounter Start Time: 14:39 Ms. Kumar was seen today in follow-up. She notes some pain in her right knee. She has a marginal appetite. - Objective MAR Reviewed: Yes Vital Signs & Weight: Vital Signs (12 hours) Temp Pulse Resp BP BP Pulse Ox 05/16/18 11:20 98.4 F 81 18 126/54 L 96 05/16/18 09:23 129/62 05/16/18 09:22 129/62 05/16/18 08:20 97.7 F 76 18 129/62 96 05/16/18 07:45 96 05/16/18 03:53 98.8 F 84 16 138/72 95 Weight Admit Weight 110 lb Weight 110 lb I&O: 05/15/18 05/16/18 05/17/18 06:59 06:59 06:59 Intake Total 1300 840 Balance 1300 840 Result Diagrams: 05/15/18 05:33 05/15/18 05:33 Additional Labs: Accuchecks 05/16/18 05/15/18 05/15/18 11:05 16:22 15:45 POC Glucose 145 H 104 59 L* Phys Exam - Physical Examination HEENT: PERRLA Respiratory: no wheezing, no rales, no rhonchi, clear to auscultation bilateral Cardiovascular: RRR, no significant murmur, no rub no gallop Gastrointestinal: soft, non-tender, no distention, positive bowel sounds Musculoskeletal: no edema Dx/Plan (1) Diabetes type 2, controlled Code(s): E11.9 - TYPE 2 DIABETES MELLITUS WITHOUT COMPLICATIONS Status: Chronic (2) Hyponatremia Code(s): E87.1 - HYPO-OSMOLALITY AND HYPONATREMIA Status: Resolved (3) CAD (coronary artery disease) Code(s): I25.10 - ATHSCL HEART DISEASE OF [place] CORONARY ARTERY W/O ANG PCTRS Status: Chronic (4) Diabetic neuropathy Code(s): E11.40 - TYPE 2 DIABETES MELLITUS WITH DIABETIC NEUROPATHY, UNSP Status: Chronic (5) Hypertension Code(s): I10 - ESSENTIAL (PRIMARY) HYPERTENSION Status: Chronic (6) Patella fracture Code(s): S82.009A - UNSP FRACTURE OF UNSP PATELLA, INIT FOR CLOS FX Status: Acute Qualifiers: Fracture type: open Laterality: right Fracture healing: with delayed healing Comment: s/p surgery (7) UTI (urinary tract infection) Status: Chronic Qualifiers: Encounter type: subsequent encounter - Plan * DM- she had an episode of hypoglycemia- will discontinue to Lantus insulin, continue Metformin, and treat with SSI only * HTN- blood glucose is stable. * Hyponatremia- improved * Fractured patella, with delayed wound healing- a wound vac is in place- continue wound care * Recent UTI- completing the course of Cipro, and Doxycycline
[2018-05-16] MEDS: HumaLOG 300 UNITS/3 ML VIAL SC PRN (16:34)
[2018-05-16] MEDS: Simvastatin 5 MG TAB PO SCH (20:00)
[2018-05-16] MEDS: Ezetimibe 10 MG TAB PO SCH (20:00)
[2018-05-16] MEDS: traZODone HCl 50 MG TAB PO SCH (20:01)
[2018-05-16] MEDS: traMADol HCl 50 MG TAB PO PRN (20:02)
[2018-05-17] MEDS: Acetaminophen/Codeine 30-300mg Tablet PO PRN ×3 (03:54→13:27)
[2018-05-17] MEDS: Enoxaparin Sodium 40 MG/0.4 ML SYRINGE SC SCH (08:35)
[2018-05-17] MEDS: metFORMIN XR 500 MG TAB PO SCH ×2 (08:35→17:57)
[2018-05-17] MEDS: Amlodipine 5 MG TAB PO SCH (08:36)
[2018-05-17] MEDS: Lisinopril 20 MG TAB PO SCH ×2 (08:37→21:02)
[2018-05-17] MEDS: Saccharomyces boulardii 250 MG CAP PO SCH (08:37)
[2018-05-17] MEDS: Aspirin 81 mg Enteric Coated Tablet PO SCH ×2 (08:37→21:04)
[2018-05-17] MEDS: Cipro 250 MG TAB PO SCH ×2 (08:38→21:04)
[2018-05-17] MEDS: Polyethylene Glycol 3350 17 GM Packet PO SCH (08:38)
[2018-05-17] MEDS: Senokot S 8.6-50 MG TAB PO SCH ×2 (08:38→21:03)
[2018-05-17] MEDS: Clopidogrel Bisulfate 75 MG TAB PO SCH (08:41)
[2018-05-17] MEDS: Doxycycline 100 MG CAP PO SCH ×2 (08:41→21:02)
[2018-05-17] MEDS: Fentanyl 100 MCG/2 ML VIAL SLOW IVP PRN ×2 (11:26→15:07)
--- NOTE | 2018-05-17 14:19 | PDOC.PN ---
- Subjective Encounter Start Date: 05/17/18 Encounter Start Time: 14:18 Ms. Kumar was seen today in follow-up of right patella fracture with delayed healing. She notes pain in her knee, bith sitting and standing. She had some nausea, but otherwise ok. - Objective MAR Reviewed: Yes Vital Signs & Weight: Vital Signs (12 hours) Temp Pulse Resp BP BP Pulse Ox 05/17/18 11:22 98.2 F 84 20 148/54 H 95 05/17/18 08:37 164/68 H 05/17/18 08:36 85 164/68 H 05/17/18 07:55 91 L 05/17/18 07:50 92 L 05/17/18 07:14 98.1 F 85 16 164/68 H 91 L 05/17/18 04:08 98.2 F 99 18 117/60 98 Weight Admit Weight 110 lb Weight 110 lb I&O: 05/16/18 05/17/18 05/18/18 06:59 06:59 06:59 Intake Total 840 250 Balance 840 250 Result Diagrams: 05/15/18 05:33 05/15/18 05:33 Additional Labs: Accuchecks 05/17/18 05/16/18 05/16/18 05:13 20:48 15:55 POC Glucose 101 178 H 222 H 05/16/18 06:00 POC Glucose 136 H Phys Exam - Physical Examination HEENT: PERRLA Respiratory: no wheezing, no rales, no rhonchi, clear to auscultation bilateral Cardiovascular: RRR, no significant murmur, no rub Gastrointestinal: soft, non-tender, no distention, positive bowel sounds Musculoskeletal: no edema knee- has wound vac applied Dx/Plan (1) Diabetes type 2, controlled Code(s): E11.9 - TYPE 2 DIABETES MELLITUS WITHOUT COMPLICATIONS Status: Chronic (2) Hyponatremia Code(s): E87.1 - HYPO-OSMOLALITY AND HYPONATREMIA Status: Resolved (3) CAD (coronary artery disease) Code(s): I25.10 - ATHSCL HEART DISEASE OF [place] CORONARY ARTERY W/O ANG PCTRS Status: Chronic (4) Diabetic neuropathy Code(s): E11.40 - TYPE 2 DIABETES MELLITUS WITH DIABETIC NEUROPATHY, UNSP Status: Chronic (5) Hypertension Code(s): I10 - ESSENTIAL (PRIMARY) HYPERTENSION Status: Chronic (6) Patella fracture Code(s): S82.009A - UNSP FRACTURE OF UNSP PATELLA, INIT FOR CLOS FX Status: Acute Qualifiers: Fracture type: open Laterality: right Fracture healing: with delayed healing Comment: s/p surgery (7) UTI (urinary tract infection) Status: Chronic Qualifiers: Encounter type: subsequent encounter - Plan * Diabetes mellitus type 2- better glycemic control- no hypoglycemic episodes * HTN- blood pressure is at times slightly elevated, but mostly stable. * Patella fracture with delayed healing- continue wound vac * UTI- she is completing treatment from her previous admission ( Doxycycline and Cipro) * Continue PT/OT
[2018-05-17] MEDS: HumaLOG 300 UNITS/3 ML VIAL SC PRN (17:59)
[2018-05-17] MEDS: Ondansetron HCl/PF 4 MG/2 ML Vial IV PRN (20:03)
[2018-05-17] MEDS: traZODone HCl 50 MG TAB PO SCH (21:02)
[2018-05-17] MEDS: Ezetimibe 10 MG TAB PO SCH (21:03)
[2018-05-17] MEDS: Simvastatin 5 MG TAB PO SCH (21:03)
[2018-05-17] MEDS: traMADol HCl 50 MG TAB PO PRN (21:03)
[2018-05-18] MEDS: Acetaminophen/Codeine 30-300mg Tablet PO PRN ×2 (02:02→07:21)
[2018-05-18] MEDS: metFORMIN XR 500 MG TAB PO SCH ×2 (07:26→16:51)
[2018-05-18] MEDS: Senokot S 8.6-50 MG TAB PO SCH ×2 (09:03→22:24)
[2018-05-18] MEDS ORDERED: HYDROcodone/Acetaminophen 7.5/325 mg Tablet PO PRN (09:04)
[2018-05-18] MEDS: Amlodipine 5 MG TAB PO SCH (09:04)
[2018-05-18] MEDS: Doxycycline 100 MG CAP PO SCH ×2 (09:05→20:35)
[2018-05-18] MEDS: Cipro 250 MG TAB PO SCH ×2 (09:05→20:36)
[2018-05-18] MEDS: Lisinopril 20 MG TAB PO SCH ×2 (09:05→20:34)
[2018-05-18] MEDS: Saccharomyces boulardii 250 MG CAP PO SCH (09:06)
[2018-05-18] MEDS: Aspirin 81 mg Enteric Coated Tablet PO SCH ×2 (09:06→20:34)
[2018-05-18] MEDS: Polyethylene Glycol 3350 17 GM Packet PO SCH (09:06)
[2018-05-18] MEDS: Enoxaparin Sodium 40 MG/0.4 ML SYRINGE SC SCH (09:06)
--- NOTE | 2018-05-18 10:26 | PDOC.PN ---
- Subjective Encounter Start Date: 05/18/18 Encounter Start Time: 10:26 cc: KNEE pain Sub: Pt says pain controlled - Objective Vital Signs & Weight: Vital Signs (12 hours) Temp Pulse Resp BP BP Pulse Ox 05/18/18 09:05 159/62 H 05/18/18 09:04 80 159/62 H 05/18/18 07:52 97.8 F 80 16 159/62 H 95 05/18/18 03:58 98.6 F 89 14 150/71 H 96 05/18/18 01:05 94 L 05/18/18 00:00 98.2 F 87 14 120/66 93 L Weight Admit Weight 110 lb Weight 110 lb I&O: 05/17/18 05/18/18 05/19/18 06:59 06:59 06:59 Intake Total 250 240 Balance 250 240 Result Diagrams: 05/18/18 11:05 05/15/18 05:33 Additional Labs: Accuchecks 05/18/18 05/17/18 05/17/18 06:47 20:53 15:48 POC Glucose 150 H 104 203 H 05/17/18 11:27 POC Glucose 147 H Phys Exam - Physical Examination Constitutional: NAD HEENT: moist MMs Neck: no JVD Respiratory: no wheezing, no rales, clear to auscultation bilateral Cardiovascular: RRR, no significant murmur, no rub Gastrointestinal: soft, non-tender no guarding, no rebound tenderness Musculoskeletal: no edema Neurological: non-focal, moves all 4 limbs Psychiatric: normal affect, A&O x 3 Dx/Plan - Plan * . (1) Diabetes type 2, controlled Code(s): E11.9 - TYPE 2 DIABETES MELLITUS WITHOUT COMPLICATIONS Status: Chronic (2) Hyponatremia Code(s): E87.1 - HYPO-OSMOLALITY AND HYPONATREMIA Status: Resolved (3) CAD (coronary artery disease) Code(s): I25.10 - ATHSCL HEART DISEASE OF [place] CORONARY ARTERY W/O ANG PCTRS Status: Chronic (4) Diabetic neuropathy Code(s): E11.40 - TYPE 2 DIABETES MELLITUS WITH DIABETIC NEUROPATHY, UNSP Status: Chronic (5) Hypertension Code(s): I10 - ESSENTIAL (PRIMARY) HYPERTENSION Status: Chronic (6) Patella fracture Code(s): S82.009A - UNSP FRACTURE OF UNSP PATELLA, INIT FOR CLOS FX Status: Acute Qualifiers: Fracture type: open Laterality: right Fracture healing: with delayed healing Comment: s/p surgery (7) UTI (urinary tract infection) Status: Chronic Qualifiers: Encounter type: subsequent encounter - Plan * Diabetes mellitus type 2- better glycemic control- no hypoglycemic episodes * HTN- bp elevated. Will increase norvasc dose to 5mg po daily * Patella fracture with delayed healing- continue wound vac * UTI- she is completing treatment from her previous admission ( Doxycycline and Cipro) * Continue PT/OT case d/w pt & RN
[2018-05-18 11:23] LABS: #Basophils 0.1 thou/uL (0.0-0.2); #Eosinphils 0.3 thou/uL (0.0-0.7); #Lymphocytes 3.3 thou/uL (1.20-3.40); #Monocytes 0.9 thou/uL (0.11-0.59); #Neutrophils 6.5 thou/uL (1.40-6.50); %Basophils 0.7 % (0.0-1.0); %Eosinophils 2.9 % (0.0-10.0); %Neutrophils 58.4 % (42.0-75.0); Hemoglobin 8.6 g/dL (12.0-16.0); Mean Corpuscular HGB CONC 31.7 g/dL (32.0-36.0); Mean Corpuscular Hemoglobin 29.5 pg (27.0-31.0); Mean Platelet Volume 6.1 fL (7.4-10.4); Platelet Count 563 thou/uL (130-400); RBC Distribution Width 13.5 % (11.5-14.5)
[2018-05-18 11:33] LABS: Anion Gap 13 mmol/L (10-20); BUN (Urea Nitrogen) 40 mg/dL (9.8-20.1); Calc. Creatinine Clearance 53 mL/min (70-130); Calcium 8.9 mg/dL (7.8-10.44); Carbon Dioxide 25 mmol/L (23-31); Chloride 100 mmol/L (98-107); Estimated GFR-MDRD 71; Glucose 134 mg/dL (80-115); Potassium 4.7 mmol/L (3.5-5.1); Sodium 133 mmol/L (136-145)
[2018-05-18] MEDS: HumaLOG 300 UNITS/3 ML VIAL SC PRN (17:48)
[2018-05-18] MEDS: HYDROcodone/Acetaminophen 7.5/325 mg Tablet PO PRN ×2 (17:55→22:14)
[2018-05-18] MEDS: traZODone HCl 50 MG TAB PO SCH (20:33)
[2018-05-18] MEDS: Simvastatin 5 MG TAB PO SCH (20:34)
[2018-05-18] MEDS: Ezetimibe 10 MG TAB PO SCH (20:34)
[2018-05-19] MEDS: HYDROcodone/Acetaminophen 7.5/325 mg Tablet PO PRN ×4 (02:18→15:32)
[2018-05-19] MEDS: Lisinopril 20 MG TAB PO SCH (08:39)
[2018-05-19] MEDS: Senokot S 8.6-50 MG TAB PO SCH (08:39)
[2018-05-19] MEDS: Polyethylene Glycol 3350 17 GM Packet PO SCH (08:39)
[2018-05-19] MEDS: metFORMIN XR 500 MG TAB PO SCH ×2 (08:39→16:50)
[2018-05-19] MEDS: Clopidogrel Bisulfate 75 MG TAB PO SCH (08:40)
[2018-05-19] MEDS: Saccharomyces boulardii 250 MG CAP PO SCH (08:40)
[2018-05-19] MEDS: Aspirin 81 mg Enteric Coated Tablet PO SCH (08:42)
[2018-05-19] MEDS: Cipro 250 MG TAB PO SCH (08:42)
[2018-05-19] MEDS: Doxycycline 100 MG CAP PO SCH (08:43)
[2018-05-19] MEDS: Enoxaparin Sodium 40 MG/0.4 ML SYRINGE SC SCH (08:43)
[2018-05-19] MEDS ORDERED: Amlodipine 5 MG TAB PO SCH (09:00)
[2018-05-19 11:10] VITALS: TEMP 98.4
[2018-05-19] MEDS: Acetaminophen/Codeine 30-300mg Tablet PO PRN (11:58)
[2018-05-19] MEDS: Ondansetron HCl/PF 4 MG/2 ML Vial IV PRN ×2 (11:59→18:17)
[2018-05-19] MEDS: HumaLOG 300 UNITS/3 ML VIAL SC PRN (11:59)
--- NOTE | 2018-05-19 13:47 | PDOC.PN ---
- Subjective Encounter Start Date: 05/19/18 Encounter Start Time: 12:00 -: old records requested/rev Pt seen and examined, chart reviewed in its entirety, this is my first visit with this patient Follow up for consultation for medical management post nonhealing patellar fracture ORIF No F/C, no n/V/D/C, no CP or SOB, no acute overnight events, no new complaints All systems reviewed and neg for all systems except as stated above - Objective MAR Reviewed: Yes Vital Signs & Weight: Vital Signs (12 hours) Temp Pulse Resp BP BP Pulse Ox 05/19/18 11:09 98.4 F 90 16 138/52 L 96 05/19/18 08:42 81 149/65 H 05/19/18 08:39 140/58 L 05/19/18 07:43 97 05/19/18 07:21 98.2 F 81 18 149/65 H 97 05/19/18 04:00 98.5 F 74 18 140/64 95 Weight Admit Weight 110 lb Weight 110 lb I&O: 05/18/18 05/19/18 05/20/18 06:59 06:59 06:59 Intake Total 250 1910 837 Balance 250 1910 837 Result Diagrams: 05/18/18 11:05 05/18/18 11:05 Additional Labs: Accuchecks 05/19/18 05/18/18 05/18/18 11:06 22:34 16:02 POC Glucose 161 H 151 H 156 H Radiology Reviewed by me: Yes EKG Reviewed by me: Yes Phys Exam - Physical Examination Constitutional: NAD HEENT: PERRLA, moist MMs, sclera anicteric, oral pharynx no lesions Neck: no nodes, no JVD, supple, full ROM Respiratory: no wheezing, no rales, no rhonchi, clear to auscultation bilateral Cardiovascular: RRR, no significant murmur, no rub Gastrointestinal: soft, non-tender, no distention, positive bowel sounds Musculoskeletal: no edema Neurological: non-focal, normal sensation, moves all 4 limbs Lymphatic: no nodes Psychiatric: normal affect, A&O x 3 Skin: no rash, normal turgor, cap refill <2 seconds Deviation from normal: VAC to knee C/D/I Dx/Plan (1) Patella fracture Code(s): S82.009A - UNSP FRACTURE OF UNSP PATELLA, INIT FOR CLOS FX Status: Acute Qualifiers: Fracture type: open Laterality: right Fracture healing: with delayed healing Comment: s/p surgery (2) Anxiety and depression Code(s): F41.9 - ANXIETY DISORDER, UNSPECIFIED; F32.9 - MAJOR DEPRESSIVE DISORDER, SINGLE EPISODE, UNSPECIFIED Status: Chronic (3) CAD (coronary artery disease) Code(s): I25.10 - ATHSCL HEART DISEASE OF [place] CORONARY ARTERY W/O ANG PCTRS Status: Chronic Qualifiers: Coronary Disease-Associated Artery/Lesion type: [place] artery [place] vs. transplanted heart: [place] heart Associated angina: without angina Qualified Code(s): I25.10 - Atherosclerotic heart disease of [place] coronary artery without angina pectoris (4) Diabetes type 2, controlled Code(s): E11.9 - TYPE 2 DIABETES MELLITUS WITHOUT COMPLICATIONS Status: Chronic Qualifiers: Diabetes mellitus intermediate card tender insulin use: without intermediate card tender use Diabetes mellitus complication status: without complication Qualified Code(s): E11.9 - Type 2 diabetes mellitus without complications (5) Hypertension Code(s): I10 - ESSENTIAL (PRIMARY) HYPERTENSION Status: Chronic Qualifiers: Hypertension type: essential hypertension Qualified Code(s): I10 - Essential (primary) hypertension (6) PVD (peripheral vascular disease) Code(s): I73.9 - PERIPHERAL VASCULAR DISEASE, UNSPECIFIED Status: Chronic - Plan cont current plan of care, PT/OT, social service technician, out of bed/ambulate * . plan per ortho. POD 5 debridement
[2018-05-19 16:00] VITALS: BP 148/62
--- NOTE | 2018-05-20 00:05 | DIS ---
DATE OF ADMISSION: 05/14/2018 DATE OF DISCHARGE: 05/19/2018 PREOPERATIVE DIAGNOSIS: Right anterior knee skin necrosis. POSTOPERATIVE DIAGNOSIS: Right anterior knee skin necrosis. OPERATION: Debridement of right anterior knee. HOSPITAL COURSE: Hospital stay was unremarkable. The patient had no postoperative complications. S he did get seen by her [facility] Hospitalist Service for medical issues and wound care for her open wound on her knee. She worked with also physical therapy during her stay. DISCHARGE CONDITION: Good/stable. DISPOSITION: Home with home health/wound care. FOLLOWUP: Follow up with us would be 7-10 days or sooner if problems arise. DISCHARGE MEDICATIONS: Given with usage instructions. .
== END 2018-05-19 18:52 | disposition home health service (06) | DRG 902 ==
LOC: SDC 10:06 → SURG B 13:32
PROVIDERS: ADMIT Orthopaedic Surgery; ATTEND Orthopaedic Surgery
PROC: 0JBN0ZZ Excision of Right Lower Leg Subcutaneous Tissue and Fascia, Open Approach (ICD-10-PCS; principal; 2018-05-14)
DX: T81.32XA Disruption of internal operation (surgical) wound, not elsewhere classified, initial encounter (principal); E11.52 Type 2 diabetes mellitus with diabetic peripheral angiopathy with gangrene; I96 Gangrene, not elsewhere classified; E87.1 Hypo-osmolality and hyponatremia; I10 Essential (primary) hypertension; I25.10 Atherosclerotic heart disease of native coronary artery without angina pectoris; F41.9 Anxiety disorder, unspecified; F32.9 Major depressive disorder, single episode, unspecified; F17.210 Nicotine dependence, cigarettes, uncomplicated; Z79.02 Long term (current) use of antithrombotics/antiplatelets; Z79.4 Long term (current) use of insulin
CPT/HCPCS: 36415; 36416; 80048; 80053; 85025; 90471; 90670; 96374; A4216; G0009; G8978-GP-CL; G8979-GP-CK; J1650; J2001; J2405; J2704; J3010

== ENCOUNTER 2018-05-23 23:09 | Emergency (ER) | payer MEDICARE ==
[2018-05-23] MEDS ORDERED: Ondansetron HCl/PF 4 MG/2 ML Vial ONE (23:48)
[2018-05-24] MEDS ORDERED: traMADol HCl 50 MG TAB ONE (00:18)
== END 2018-05-24 00:55 | disposition home or self-care (01) ==
LOC: ERS 23:09
DX: E11.649 Type 2 diabetes mellitus with hypoglycemia without coma (principal); R11.2 Nausea with vomiting, unspecified; T38.3X5A Adverse effect of insulin and oral hypoglycemic [antidiabetic] drugs, initial encounter; I25.10 Atherosclerotic heart disease of native coronary artery without angina pectoris; I10 Essential (primary) hypertension; F17.210 Nicotine dependence, cigarettes, uncomplicated; E78.5 Hyperlipidemia, unspecified; Z79.891 Long term (current) use of opiate analgesic; Z79.4 Long term (current) use of insulin; Z79.899 Other long term (current) drug therapy; Z79.82 Long term (current) use of aspirin
CPT/HCPCS: 36416; 96374; J2405

== ENCOUNTER 2018-05-28 11:31 | Inpatient (IN) | payer MEDICARE ==
[2018-05-28 13:42] LABS: #Basophils 0.1 thou/uL (0.0-0.2); #Eosinphils 0.2 thou/uL (0.0-0.7); #Lymphocytes 2.4 thou/uL (1.20-3.40); #Monocytes 0.8 thou/uL (0.11-0.59); #Neutrophils 7.4 thou/uL (1.40-6.50); %Basophils 0.7 % (0.0-1.0); %Eosinophils 1.6 % (0.0-10.0); %Lymphocytes 21.9 % (21.0-51.0); %Monocytes 7.6 % (0.0-10.0); %Neutrophils 68.2 % (42.0-75.0); Hemoglobin 8.3 g/dL (12.0-16.0); Mean Corpuscular HGB CONC 31.5 g/dL (32.0-36.0); Mean Corpuscular Hemoglobin 29.5 pg (27.0-31.0); Mean Corpuscular Volume 93.6 fL (78.0-98.0); Mean Platelet Volume 5.9 fL (7.4-10.4); Platelet Count 647 thou/uL (130-400); RBC Distribution Width 13.1 % (11.5-14.5); Red Blood Cell (RBC) Count 2.82 mill/uL (4.20-5.40); White Blood Cell (WBC) Count 10.9 thou/uL (4.8-10.8)
[2018-05-28 14:05] LABS: ALT (SGPT) 7 U/L (8-55); AST (SGOT) 14 U/L (5-34); Albumin 2.7 g/dL (3.4-4.8); Alkaline Phosphatase 100 U/L (40-150); Anion Gap 12 mmol/L (10-20); BUN (Urea Nitrogen) 13 mg/dL (9.8-20.1); Bilirubin, Total 0.4 mg/dL (0.2-1.2); CRP (Inflammatory) 9.67 mg/dL (= or < 0.5); Calc. Creatinine Clearance 0 mL/min (70-130); Calcium 8.6 mg/dL (7.8-10.44); Carbon Dioxide 25 mmol/L (23-31); Chloride 99 mmol/L (98-107); Estimated GFR-MDRD 78; Globulin 3.3 g/dL (2.4-3.5); Glucose 94 mg/dL (80-115); Potassium 4.8 mmol/L (3.5-5.1); Sodium 131 mmol/L (136-145)
[2018-05-28] MEDS ORDERED: HYDROcodone/Acetaminophen 7.5/325 mg Tablet PO PRN (14:58)
[2018-05-28] MEDS: traMADol HCl 50 MG TAB PO PRN (14:59)
[2018-05-28] MEDS ORDERED: CEFAZOLIN/Water 2 GM/20 ML SYRINGE SLOW IVP SCH (15:00)
[2018-05-28] MEDS ORDERED: Insulin NPH/Reg Insulin Hm 300 UNITS/3 ML VIAL SC SCH (16:30)
[2018-05-28] MEDS ORDERED: Dextrose 5% in Water 1,000 ML IV PRN (17:08)
[2018-05-28] MEDS ORDERED: Dextrose 50% Abboject 50 ML SYRINGE SLOW IVP PRN (17:08)
[2018-05-28] MEDS ORDERED: hydrALAZINE 20 MG/ML VIAL SLOW IVP PRN (18:27)
[2018-05-28] MEDS ORDERED: Ondansetron PF 4 MG/2 ML Vial IVP PRN (18:27)
[2018-05-28] MEDS: Ondansetron ODT 4 MG TAB PO PRN (18:45)
[2018-05-28] MEDS: HYDROcodone/Acetaminophen 7.5/325 mg Tablet PO PRN (20:57)
[2018-05-28] MEDS: Famotidine 20 MG TAB PO SCH (20:58)
[2018-05-28] MEDS: Simvastatin 20 MG TAB PO SCH (20:59)
[2018-05-28] MEDS ORDERED: INVOKAMET PO SCH (21:00)
[2018-05-28] MEDS: Ezetimibe 10 MG TAB PO SCH (21:00)
[2018-05-28] MEDS ORDERED: Lisinopril 20 MG TAB PO SCH (21:00)
[2018-05-28] MEDS: traZODone HCl 50 MG TAB PO SCH (21:01)
--- NOTE | 2018-05-29 00:23 | PDOC.PN ---
- Subjective Encounter Start Date: 05/28/18 Encounter Start Time: 18:00 Patient seen and examined for medical mgmt. No new complaints. No overnight events - Objective Resuscitation Status: Resuscitation Status FULL:Full Resuscitation MAR Reviewed: Yes Vital Signs & Weight: Vital Signs (12 hours) Temp Pulse Resp BP Pulse Ox 05/29/18 00:00 99.0 F 96 16 163/73 H 97 05/28/18 20:00 99.2 F 92 20 138/74 94 L 05/28/18 15:37 99 F 93 18 134/61 96 I&O: 05/27/18 05/28/18 05/29/18 06:59 06:59 06:59 Intake Total 600 Balance 600 Result Diagrams: 05/28/18 13:30 05/28/18 13:30 Additional Labs: Accuchecks 05/28/18 05/28/18 20:43 15:57 POC Glucose 131 H 157 H Phys Exam - Physical Examination Constitutional: NAD Cardiovascular: RRR, no rub Gastrointestinal: soft, non-tender, positive bowel sounds Musculoskeletal: no edema Neurological: moves all 4 limbs Dx/Plan - Plan DVT proph w/SCDs IMPRESSION: 1. DM2 2. HTN 3. CAD s/p stents 4. Anxiety and Depression/ CKD 2 PLAN: Insulin sliding scale NPO past MN Cont Amlodipine/Lisinopril/Maxzide Cont other meds as below A1c in AM Review of Systems - Review of Systems Respiratory: negative: Cough, Dry, Shortness of Breath, Hemoptysis, SOB with Excertion, Pleuritic Pain, Sputum, Wheezing Cardiovascular: negative: chest pain, palpitations, orthopnea, paroxysmal nocturnal dyspnea, edema, light headedness, other - Medications/Allergies Allergies/Adverse Reactions: Allergies Allergy/AdvReac Type Severity Reaction Status Date / Time No Known Drug Allergies Allergy Verified 05/13/18 13:16 Medications: Current Medications Acetaminophen (Tylenol) 650 mg PO Q4H PRN PRN Reason: Headache/Fever/Mild Pain (1-3) Hydrocodone Bitart/Acetaminophen ([place] 7.5/325) 1 tab PO Q4H PRN PRN Reason: Mild Pain (1-3) Hydrocodone Bitart/Acetaminophen ([place] 7.5/325) 2 tab PO Q4H PRN PRN Reason: Moderate Pain (4-6) Last Admin: 05/28/18 20:57 Dose: 2 tab Amlodipine Besylate (Norvasc) 2.5 mg PO DAILY [facility] Cefazolin Sodium (Ancef) 2 gm SLOW IVP ONCALL-OR [facility] Dextrose/Water (Dextrose 50%) 25 gm SLOW IVP PRN PRN PRN Reason: Hypoglycemia Ezetimibe (Zetia) 5 mg PO HS [facility] Last Admin: 05/28/18 21:00 Dose: 5 mg Famotidine (Pepcid) 20 mg PO BID [facility] Last Admin: 05/28/18 20:58 Dose: 20 mg Glucagon (Glucagon) 1 mg IM PRN PRN PRN Reason: Hypoglycemia Hydralazine HCl (Apresoline) 10 mg SLOW IVP Q4H PRN PRN Reason: SBP Greater Than 180 Dextrose/Water (D5w) 1,000 mls @ 0 mls/hr IV .Q0M PRN PRN Reason: Hypoglycemia Insulin Human Regular (Humulin R) 0 units SC .MILD SLIDING SCALE PRN PRN Reason: Mild Correctional Scale Insulin Human Regular (Humulin R) 0 units SC .BEDTIME SLIDING SC PRN PRN Reason: Bedtime Correctional Scale Lisinopril (Zestril) 20 mg PO DAILY [facility] Ondansetron HCl (Zofran Odt) 4 mg PO Q6H PRN PRN Reason: Nausea/Vomiting Last Admin: 05/28/18 18:45 Dose: 4 mg Ondansetron HCl (Zofran) 4 mg IVP Q6H PRN PRN Reason: Nausea/Vomiting Saccharomyces Boulardii (Florastor) 250 mg PO QAM [facility] Simvastatin (Zocor) 10 mg PO [facility] Last Admin: 05/28/18 20:59 Dose: 10 mg Sodium Chloride (Flush - Normal Saline) 10 ml IVF PRN PRN PRN Reason: Saline Flush Tramadol HCl (Ultram) 50 mg PO Q6H PRN PRN Reason: Pain 1ST LINE Last Admin: 05/28/18 14:59 Dose: 50 mg Trazodone HCl (Desyrel) 25 mg PO [facility] Last Admin: 05/28/18 21:01 Dose: 25 mg Triamterene/HCTZ (Maxzide-25) 1 tab PO QAM [facility]
[2018-05-29] MEDS: HYDROcodone/Acetaminophen 7.5/325 mg Tablet PO PRN ×3 (04:54→16:45)
[2018-05-29 05:57] LABS: #Eosinphils 0.5 thou/uL (0.0-0.7); #Lymphocytes 2.7 thou/uL (1.20-3.40); #Neutrophils 4.5 thou/uL (1.40-6.50); %Basophils 0.4 % (0.0-1.0); %Eosinophils 5.5 % (0.0-10.0); %Monocytes 11.6 % (0.0-10.0); %Neutrophils 51.4 % (42.0-75.0); Hemoglobin 8.7 g/dL (12.0-16.0); Mean Corpuscular HGB CONC 31.6 g/dL (32.0-36.0); Mean Corpuscular Hemoglobin 29.5 pg (27.0-31.0); Mean Corpuscular Volume 93.5 fL (78.0-98.0); Mean Platelet Volume 5.7 fL (7.4-10.4); Platelet Count 628 thou/uL (130-400); RBC Distribution Width 12.9 % (11.5-14.5); Red Blood Cell (RBC) Count 2.95 mill/uL (4.20-5.40); White Blood Cell (WBC) Count 8.6 thou/uL (4.8-10.8)
[2018-05-29] MEDS: traMADol HCl 50 MG TAB PO PRN ×2 (06:09→18:26)
[2018-05-29 06:20] LABS: Anion Gap 12 mmol/L (10-20); BUN (Urea Nitrogen) 11 mg/dL (9.8-20.1); Calc. Creatinine Clearance 0 mL/min (70-130); Calcium 8.5 mg/dL (7.8-10.44); Carbon Dioxide 24 mmol/L (23-31); Chloride 103 mmol/L (98-107); Estimated GFR-MDRD Greater than 90; Glucose 106 mg/dL (80-115); Magnesium 1.5 mg/dL (1.6-2.6); Potassium 4.4 mmol/L (3.5-5.1); Sodium 135 mmol/L (136-145)
[2018-05-29] MEDS: Dextrose 5 %-0.45 % NaCl 1,000 ML IV SCH (07:28)
--- NOTE | 2018-05-29 07:47 | HP ---
HISTORY OF PRESENT ILLNESS: The patient returns to the hospital. She had surgery for her knee on . She returned on 05/14/2018 with some skin breakdown. The knee was debrided, wound VAC lenin lied, wound care was brought in. The patient presented to the clinic today with poor healing of skin . The wound VAC is not working for the patient and she is having a significant breakdown. She state s she is in quite a bit of pain also. We will get her meds restarted and pain meds going for her. Miguel Ángel Echevarria plans to an I&D tomorrow. We were looking at possibly doing a flap repair of the knee. I explained this to the patient and her granddaughter. The patient states that she currently has sto pped smoking. Hopefully, permanently, but possibly for the time being. We have reiterated the patie nt that she needs to keep her diabetes in check and smoking cessation to give this her extremity viab le chance to heal. PAST MEDICAL HISTORY: Positive for stent placement, left leg surgery, hernia, cholecystectomy, hyste rectomy, patellectomy, tendon repair, some eye surgery. ALLERGIES: None. SOCIAL HISTORY: . Smokes cigarettes, but has stopped recently. No alcohol products. MEDICATIONS: Humulin, acarbose, amlodipine, amitriptyline, Plavix and aspirin which are on hold. In vokamet. She is taking Zetia, Florastor, lisinopril, simvastatin, trazodone, and we sent her home wi th tramadol and Tylenol No.4, but Tylenol No.4 has caused a little bit of nausea. FAMILY HISTORY: Noncontributory. REVIEW OF SYSTEMS: Denies any chest pain, shortness of breath, bowel or bladder. She is just compla ining of that right leg is fairly painful. She has not taken her pain med since this morning. Other rush, current rest review of systems is negative. PHYSICAL EXAMINATION: GENERAL: Very pleasant, sweet, petite female, resting in bed in mild distress. Speech clear. Affec t pleasant. Answers questions appropriately and alert and oriented x3. HEENT: Normal exam. Face symmetric, tongue midline. NECK: Supple, trachea midline. RESPIRATORY: No distress. Extremities: Upper extremities: Equal size, shape, symmetry, normal bulk and tone. Movements, sens ations equal. Lower extremities: Right knee is covered, but pictures viewed earlier shows significa nt skin necrosis and nonhealing wound. Muscle tone each leg is equal. Sensations are intact. Pulse s are present bilaterally. Since she has had this surgical intervention, she has definitely lost carolin e muscle tone in bilateral lower extremities. ASSESSMENT: Wound necrosis, right knee secondary to a patellectomy repair. PLAN: I spoke with patient and granddaughter. Patient states she has quit smoking. I applaud her f or this. She needs to quit smoking altogether and keep her diabetes in check to hopefully have a fig hting chance for this knee to heal and she understands this. We plan to take her to the operating ro om to do I&D washout, possible wound grafting, but that may be at a later date. They understand this also. I discussed risks and benefits of surgery and she is amenable to go forth with surgery. We w ill get her medications, pain control through the night. Keep her n.p.o. after midnight, get her add ed on to the OR schedule and get her set up for surgery tomorrow. Her questions have been answered a s have her concerns been addressed.
[2018-05-29] MEDS: Famotidine 20 MG TAB PO SCH ×2 (08:29→21:40)
[2018-05-29] MEDS: Lisinopril 20 MG TAB PO SCH (08:29)
[2018-05-29] MEDS: Triamterene/Hydrochlorothiazide 37.5 mg/25 mg Tablet PO SCH (08:29)
[2018-05-29] MEDS: Saccharomyces boulardii 250 MG CAP PO SCH (08:30)
[2018-05-29] MEDS: Amlodipine 5 MG TAB PO SCH (08:30)
[2018-05-29] MEDS ORDERED: Magnesium 2 GM/50 ML 2 GM in Premix Bag 1 BAG IVPB SCH (09:00)
[2018-05-29] MEDS: Acetaminophen 325 MG TAB PO PRN ×2 (10:39→18:29)
[2018-05-29 11:52] VITALS: BMI 18.8
[2018-05-29] MEDS ORDERED: CEFAZOLIN/Water 2 GM/20 ML SYRINGE ONE (12:56)
[2018-05-29] MEDS ORDERED: Scopolamine 1.5 mg/72 hour Patch ONE (13:08)
[2018-05-29] MEDS ORDERED: Ondansetron HCl/PF 4 MG/2 ML Vial IVP PRN (14:10)
[2018-05-29] MEDS ORDERED: Promethazine HCl 25 MG/ML VIAL SLOW IVP PRN (14:10)
[2018-05-29] MEDS ORDERED: Promethazine HCl 25 MG/ML VIAL IM PRN ×2 (14:10→18:51)
[2018-05-29] MEDS ORDERED: Fentanyl 100 MCG/2 ML VIAL ONE ×2 (14:43→15:12)
--- NOTE | 2018-05-29 15:36 | PDOC.PN ---
- Subjective Encounter Start Date: 05/29/18 Encounter Start Time: 10:00 Patient seen and examined for med mngt. No new complaints. No overnight events - Objective Resuscitation Status: Resuscitation Status FULL:Full Resuscitation MAR Reviewed: Yes Vital Signs & Weight: Vital Signs (12 hours) Temp Pulse Resp BP BP Pulse Ox 05/29/18 08:31 98 05/29/18 08:30 80 156/74 H 05/29/18 08:29 156/74 H 05/29/18 08:20 98.5 F 80 16 156/74 H 98 05/29/18 04:00 98.5 F 88 16 176/84 H 97 Weight Admit Weight 96 lb 3.2 oz Weight 96 lb 3.2 oz I&O: 05/28/18 05/29/18 05/30/18 06:59 06:59 06:59 Intake Total 1320 Balance 1320 Result Diagrams: 05/29/18 05:40 05/29/18 05:40 Additional Labs: Accuchecks 05/29/18 05/29/18 05/28/18 11:12 05:19 20:43 POC Glucose 152 H 119 H 131 H 05/28/18 15:57 POC Glucose 157 H Phys Exam - Physical Examination Constitutional: NAD Respiratory: no wheezing, no rhonchi Cardiovascular: RRR, no rub Gastrointestinal: soft, non-tender, positive bowel sounds Musculoskeletal: no edema Rt knee dressing + Dx/Plan - Plan DVT proph w/SCDs IMPRESSION: 1. DM2 2. HTN 3. CAD s/p stents 4. Hypomagnesemia 5. Anxiety and Depression/ CKD 2 / Moderate PEM PLAN: Replace Magnessium Cont Insulin sliding scale Cont current anti HTN Cont other meds as below Laboratory Tests 05/29/18 05/29/18 05:40 05:40 Hemoglobin A1c 6.0 Magnesium 1.5 L Review of Systems - Review of Systems Respiratory: negative: Cough, Dry, Shortness of Breath, Hemoptysis, SOB with Excertion, Pleuritic Pain, Sputum, Wheezing Cardiovascular: negative: chest pain, palpitations, orthopnea, paroxysmal nocturnal dyspnea, edema, light headedness, other - Medications/Allergies Allergies/Adverse Reactions: Allergies Allergy/AdvReac Type Severity Reaction Status Date / Time No Known Drug Allergies Allergy Verified 05/13/18 13:16 Medications: Current Medications Acetaminophen (Tylenol) 650 mg PO Q4H PRN PRN Reason: Headache/Fever/Mild Pain (1-3) Last Admin: 05/29/18 10:39 Dose: 650 mg Hydrocodone Bitart/Acetaminophen ([place] 7.5/325) 1 tab PO Q4H PRN PRN Reason: Mild Pain (1-3) Hydrocodone Bitart/Acetaminophen ([place] 7.5/325) 2 tab PO Q4H PRN PRN Reason: Moderate Pain (4-6) Last Admin: 05/29/18 08:28 Dose: 2 tab Amlodipine Besylate (Norvasc) 2.5 mg PO DAILY [facility] Last Admin: 05/29/18 08:30 Dose: 2.5 mg Cefazolin Sodium (Ancef) 2 gm SLOW IVP ONCALL-OR [facility] Dextrose/Water (Dextrose 50%) 25 gm SLOW IVP PRN PRN PRN Reason: Hypoglycemia Ezetimibe (Zetia) 5 mg PO HS [facility] Last Admin: 05/28/18 21:00 Dose: 5 mg Famotidine (Pepcid) 20 mg PO BID [facility] Last Admin: 05/29/18 08:29 Dose: 20 mg Fentanyl (Pacu-Sublimaze) 50 mcg SLOW IVP Q10MIN PRN PRN Reason: Moderate to Severe Pain (6-10) Stop: 05/29/18 17:10 Glucagon (Glucagon) 1 mg IM PRN PRN PRN Reason: Hypoglycemia Hydralazine HCl (Apresoline) 10 mg SLOW IVP Q4H PRN PRN Reason: SBP Greater Than 180 Dextrose/Water (D5w) 1,000 mls @ 0 mls/hr IV .Q0M PRN PRN Reason: Hypoglycemia Dextrose/Sodium Chloride (D5 1/2 Ns) 1,000 mls @ 75 mls/hr IV .[id number] [facility] Last Admin: 05/29/18 07:28 Dose: 1,000 mls Insulin Human Regular (Humulin R) 0 units SC .MILD SLIDING SCALE PRN PRN Reason: Mild Correctional Scale Insulin Human Regular (Humulin R) 0 units SC .BEDTIME SLIDING SC PRN PRN Reason: Bedtime Correctional Scale Lisinopril (Zestril) 20 mg PO DAILY [facility] Last Admin: 05/29/18 08:29 Dose: 20 mg Ondansetron HCl (Zofran Odt) 4 mg PO Q6H PRN PRN Reason: Nausea/Vomiting Last Admin: 05/28/18 18:45 Dose: 4 mg Ondansetron HCl (Zofran) 4 mg IVP Q6H PRN PRN Reason: Nausea/Vomiting Last Admin: 05/29/18 04:52 Dose: 4 mg Ondansetron HCl (Pacu-Zofran) 4 mg IVP ONE PRN PRN Reason: Nausea/Vomiting Stop: 05/29/18 17:10 Promethazine HCl (Pacu-Phenergan) 6.25 mg SLOW IVP ONE PRN PRN Reason: Nausea/Vomiting Stop: 05/29/18 17:10 Promethazine HCl (Pacu-Phenergan) 6.25 mg IM ONE PRN PRN Reason: Nausea/Vomiting Stop: 05/29/18 17:10 Saccharomyces Boulardii ([facility]or) [facility] Last Admin: 05/29/18 08:30 Dose: 250 mg Simvastatin (Zocor) 10 mg PO [facility] Last Admin: 05/28/18 20:59 Dose: 10 mg Sodium Chloride (Flush - Normal Saline) 10 ml IVF PRN PRN PRN Reason: Saline Flush Tramadol HCl (Ultram) 50 mg PO Q6H PRN PRN Reason: Pain 1ST LINE Last Admin: 05/29/18 06:09 Dose: 50 mg Trazodone HCl (Desyrel) 25 mg PO [facility] Last Admin: 05/28/18 21:01 Dose: 25 mg Triamterene/HCTZ (Maxzide-25) [facility] Last Admin: 05/29/18 08:29 Dose: 1 tab
[2018-05-29] MEDS ORDERED: PROPOFOL 200 MG/20 ML VIAL ONE (15:49)
[2018-05-29] MEDS ORDERED: Lidocaine 1% PF 5 ML VIAL ONE (15:49)
[2018-05-29] MEDS ORDERED: Ondansetron PF 4 MG/2 ML Vial ONE (15:49)
[2018-05-29] MEDS: Ondansetron ODT 4 MG TAB PO PRN (16:45)
[2018-05-29] MEDS: Insulin Regular 300 UNITS/3 ML VIAL SC PRN ×2 (17:31→21:42)
[2018-05-29] MEDS ORDERED: diphenhydrAMINE 25 MG CAP PO PRN (18:51)
[2018-05-29] MEDS ORDERED: Zolpidem Tartrate 5 MG TAB PO PRN (18:51)
[2018-05-29] MEDS ORDERED: diphenhydrAMINE 50 MG/ML VIAL IVP PRN (18:51)
[2018-05-29] MEDS ORDERED: Naloxone HCl 0.4 mg/ml Vial IV PRN (18:51)
[2018-05-29] MEDS ORDERED: diphenhydrAMINE 50 MG/ML VIAL IM PRN (18:51)
[2018-05-29] MEDS ORDERED: Communication Order-Pharmacy FS SCH (19:00)
[2018-05-29] MEDS: fentaNYL Citrate/PF 2,000 MCG in Sodium Chloride 0.9% 60 ML IV PRN (19:23)
[2018-05-29] MEDS: traZODone HCl 50 MG TAB PO SCH (21:39)
[2018-05-29] MEDS: Simvastatin 20 MG TAB PO SCH (21:40)
[2018-05-29] MEDS: Ezetimibe 10 MG TAB PO SCH (21:41)
[2018-05-29] MEDS: CEFAZOLIN/Water 2 GM/20 ML SYRINGE SLOW IVP SCH (21:42)
[2018-05-30] MEDS: Dextrose 5 %-0.45 % NaCl 1,000 ML IV SCH ×2 (01:01→11:56)
[2018-05-30] MEDS: CEFAZOLIN/Water 2 GM/20 ML SYRINGE SLOW IVP SCH (11:53)
[2018-05-30] MEDS: Amlodipine 5 MG TAB PO SCH (11:54)
[2018-05-30] MEDS: Famotidine 20 MG TAB PO SCH ×2 (11:55→21:18)
[2018-05-30] MEDS: Lisinopril 20 MG TAB PO SCH (11:55)
[2018-05-30] MEDS: Saccharomyces boulardii 250 MG CAP PO SCH (11:56)
[2018-05-30] MEDS: Triamterene/Hydrochlorothiazide 37.5 mg/25 mg Tablet PO SCH (11:56)
[2018-05-30 12:50] LABS: Chloride 100 mmol/L (98-107); Magnesium 1.5 mg/dL (1.6-2.6); Potassium 4.3 mmol/L (3.5-5.1); Sodium 131 mmol/L (136-145)
[2018-05-30 12:51] LABS: Anion Gap 14 mmol/L (10-20); BUN (Urea Nitrogen) 8 mg/dL (9.8-20.1); Calc. Creatinine Clearance 57 mL/min (70-130); Calcium 8.5 mg/dL (7.8-10.44); Carbon Dioxide 21 mmol/L (23-31); Estimated GFR-MDRD Greater than 90
[2018-05-30 15:18] LABS: Glucose 192 mg/dL (80-115)
[2018-05-30] MEDS: Insulin Regular 300 UNITS/3 ML VIAL SC PRN ×2 (15:37→21:34)
[2018-05-30] MEDS ORDERED: Magnesium 2 GM/50 ML 2 GM in Premix Bag 1 BAG IVPB SCH (16:00)
[2018-05-30] MEDS: Ketorolac Tromethamine 30 MG/ML VIAL IVP SCH ×2 (17:06→23:58)
[2018-05-30] MEDS: HYDROcodone/Acetaminophen 7.5/325 mg Tablet PO SCH ×2 (17:07→23:59)
[2018-05-30] MEDS: Acetaminophen 325 MG TAB PO SCH ×2 (17:07→23:58)
[2018-05-30 18:02] LABS: #Eosinphils 0.2 thou/uL (0.0-0.7); #Lymphocytes 2.1 thou/uL (1.20-3.40); #Monocytes 1.1 thou/uL (0.11-0.59); #Neutrophils 6.2 thou/uL (1.40-6.50); %Basophils 0.4 % (0.0-1.0); %Eosinophils 1.6 % (0.0-10.0); %Lymphocytes 21.8 % (21.0-51.0); %Monocytes 11.2 % (0.0-10.0); Hemoglobin 8.3 g/dL (12.0-16.0); Mean Corpuscular HGB CONC 31.3 g/dL (32.0-36.0); Mean Corpuscular Hemoglobin 29.7 pg (27.0-31.0); Mean Corpuscular Volume 95.1 fL (78.0-98.0); Mean Platelet Volume 6.2 fL (7.4-10.4); Platelet Count 670 thou/uL (130-400); Red Blood Cell (RBC) Count 2.78 mill/uL (4.20-5.40); White Blood Cell (WBC) Count 9.6 thou/uL (4.8-10.8)
--- NOTE | 2018-05-30 20:45 | PDOC.PN ---
- Subjective Encounter Start Date: 05/30/18 Encounter Start Time: 12:30 Patient seen and examined for med mngt. No new complaints except pain over the surgical site. No N/V/CP. No overnight events - Objective Resuscitation Status: Resuscitation Status FULL:Full Resuscitation MAR Reviewed: Yes Vital Signs & Weight: Vital Signs (12 hours) Temp Pulse Resp BP BP BP Pulse Ox 05/30/18 20:21 99.3 F 84 16 116/76 95 05/30/18 16:41 100.8 F H 92 20 147/57 H 94 L 05/30/18 11:55 146/66 H 05/30/18 11:54 106 H 146/66 H Weight Admit Weight 96 lb 3.2 oz Weight 96 lb 3.2 oz I&O: 05/29/18 05/30/18 05/31/18 06:59 06:59 06:59 Intake Total 0704 025 1076 Balance 8705 817 8448 Result Diagrams: 05/30/18 03:30 05/30/18 03:30 Additional Labs: Accuchecks 05/30/18 05/30/18 05/30/18 15:11 10:12 05:29 POC Glucose 169 H 220 H 197 H 05/29/18 21:16 POC Glucose 224 H Phys Exam - Physical Examination Constitutional: NAD Respiratory: no wheezing, no rhonchi Cardiovascular: RRR, no rub Gastrointestinal: soft, non-tender, positive bowel sounds Musculoskeletal: no edema Neurological: moves all 4 limbs Dx/Plan - Plan DVT proph w/SCDs IMPRESSION: 1. DM2 2. HTN 3. CAD s/p stents 4. Hypomagnesemia 5. Anxiety and Depression/ CKD 2 / Moderate PEM PLAN: Add NPH Replace Magnessium Cont sliding scale Cont current meds as below Laboratory Tests 05/30/18 03:30 Sodium 131 L Magnesium 1.5 L Review of Systems - Review of Systems Respiratory: negative: Cough, Dry, Shortness of Breath, Hemoptysis, SOB with Excertion, Pleuritic Pain, Sputum, Wheezing Cardiovascular: negative: chest pain, palpitations, orthopnea, paroxysmal nocturnal dyspnea, edema, light headedness, other - Medications/Allergies Allergies/Adverse Reactions: Allergies Allergy/AdvReac Type Severity Reaction Status Date / Time No Known Drug Allergies Allergy Verified 05/13/18 13:16 Medications: Current Medications Acetaminophen (Tylenol) 650 mg PO Q6HR [facility] Stop: 06/01/18 18:01 Last Admin: 05/30/18 17:07 Dose: 650 mg Hydrocodone Bitart/Acetaminophen ([place] 7.5/325) 1 tab PO Q6HR [facility] Stop: 06/01/18 18:01 Last Admin: 05/30/18 17:07 Dose: 1 tab Amlodipine Besylate (Norvasc) 2.5 mg PO DAILY [facility] Last Admin: 05/30/18 11:54 Dose: 2.5 mg Dextrose/Water (Dextrose 50%) 25 gm SLOW IVP PRN PRN PRN Reason: Hypoglycemia Diphenhydramine HCl (Benadryl) 25 mg IVP Q3H PRN PRN Reason: Itching Diphenhydramine HCl (Benadryl) 25 mg PO Q3H PRN PRN Reason: Itching Diphenhydramine HCl (Benadryl) 25 mg IM Q3H PRN PRN Reason: Itching Ezetimibe (Zetia) 5 mg PO HS [facility] Last Admin: 05/29/18 21:41 Dose: 5 mg Famotidine (Pepcid) 20 mg PO BID [facility] Last Admin: 05/30/18 11:55 Dose: 20 mg Glucagon (Glucagon) 1 mg IM PRN PRN PRN Reason: Hypoglycemia Hydralazine HCl (Apresoline) 10 mg SLOW IVP Q4H PRN PRN Reason: SBP Greater Than 180 Dextrose/Water (D5w) 1,000 mls @ 0 mls/hr IV .Q0M PRN PRN Reason: Hypoglycemia Dextrose/Sodium Chloride (D5 1/2 Ns) 1,000 mls @ 75 mls/hr IV .[id number] [facility] Last Admin: 05/30/18 11:56 Dose: 1,000 mls Fentanyl Citrate 2,000 mcg/ (Sodium Chloride) 100 mls @ 0 mls/hr IV INF PRN PRN Reason: Pain Last Admin: 05/29/18 19:23 Dose: 100 mls Insulin Human Regular (Humulin R) 0 units SC .MILD SLIDING SCALE PRN PRN Reason: Mild Correctional Scale Last Admin: 05/30/18 15:37 Dose: 2 unit Insulin Human Regular (Humulin R) 0 units SC .BEDTIME SLIDING SC PRN PRN Reason: Bedtime Correctional Scale Last Admin: 05/29/18 21:42 Dose: 2 unit Ketorolac Tromethamine (Toradol) 15 mg IVP Q6HR [facility] Stop: 06/01/18 18:01 Last Admin: 05/30/18 17:06 Dose: 15 mg Lisinopril (Zestril) 20 mg PO DAILY [facility] Last Admin: 05/30/18 11:55 Dose: 20 mg Naloxone HCl (Narcan) 0.2 mg IV Q5MIN PRN PRN Reason: Opiate Reversal Ondansetron HCl (Zofran Odt) 4 mg PO Q6H PRN PRN Reason: Nausea/Vomiting Last Admin: 05/29/18 16:45 Dose: 4 mg Ondansetron HCl (Zofran) 4 mg IVP Q6H PRN PRN Reason: Nausea/Vomiting Last Admin: 05/29/18 04:52 Dose: 4 mg Ondansetron HCl (Zofran) 4 mg IVP Q6H PRN PRN Reason: Nausea/Vomiting Promethazine HCl (Phenergan) 12.5 mg IM Q4H PRN PRN Reason: Nausea/Vomiting Saccharomyces Boulardii (Florastor) [facility] Last Admin: 05/30/18 11:56 Dose: 250 mg Simvastatin (Zocor) 10 mg PO [facility] Last Admin: 05/29/18 21:40 Dose: 10 mg Sodium Chloride (Flush - Normal Saline) 10 ml IVF PRN PRN PRN Reason: Saline Flush Trazodone HCl (Desyrel) 25 mg PO [facility] Last Admin: 05/29/18 21:39 Dose: 25 mg Triamterene/HCTZ (Maxzide-25) 1 [facility] Last Admin: 05/30/18 11:56 Dose: 1 tab Zolpidem Tartrate (Ambien) 5 mg PO HSPRN PRN PRN Reason: Insomnia
[2018-05-30] MEDS: traZODone HCl 50 MG TAB PO SCH (21:18)
[2018-05-30] MEDS: Ezetimibe 10 MG TAB PO SCH (21:19)
[2018-05-30] MEDS: Simvastatin 20 MG TAB PO SCH (21:20)
[2018-05-31] MEDS: fentaNYL Citrate/PF 2,000 MCG in Sodium Chloride 0.9% 60 ML IV PRN (00:02)
[2018-05-31] MEDS: Dextrose 5 %-0.45 % NaCl 1,000 ML IV SCH ×3 (02:30→18:45)
[2018-05-31] MEDS: Insulin Regular 300 UNITS/3 ML VIAL SC PRN (06:18)
[2018-05-31] MEDS: Ketorolac Tromethamine 30 MG/ML VIAL IVP SCH ×4 (06:19→23:26)
[2018-05-31] MEDS: HYDROcodone/Acetaminophen 7.5/325 mg Tablet PO SCH ×4 (06:22→23:26)
[2018-05-31] MEDS: Acetaminophen 325 MG TAB PO SCH ×4 (06:22→23:25)
[2018-05-31] MEDS: NPH, Human Insulin Isophane 300 UNIT/3 ML VIAL SC SCH (09:30)
[2018-05-31] MEDS: Amlodipine 5 MG TAB PO SCH (09:32)
[2018-05-31] MEDS: Famotidine 20 MG TAB PO SCH ×2 (09:32→20:54)
[2018-05-31] MEDS: Saccharomyces boulardii 250 MG CAP PO SCH (09:32)
[2018-05-31] MEDS: Triamterene/Hydrochlorothiazide 37.5 mg/25 mg Tablet PO SCH (09:33)
[2018-05-31] MEDS: Lisinopril 20 MG TAB PO SCH (09:33)
--- NOTE | 2018-05-31 19:13 | PDOC.PN ---
- Subjective Encounter Start Date: 05/31/18 Encounter Start Time: 12:00 Patient seen and examined for med mngt.Pain controlled. No new complaints. No overnight events - Objective Resuscitation Status: Resuscitation Status FULL:Full Resuscitation MAR Reviewed: Yes Vital Signs & Weight: Vital Signs (12 hours) Temp Pulse Resp BP Pulse Ox 05/31/18 15:17 98.7 F 89 18 131/63 99 05/31/18 11:20 97.6 F 101 H 18 153/61 H 91 L 05/31/18 09:32 84 05/31/18 07:55 97.4 F L 84 18 131/60 96 Weight Admit Weight 96 lb 3.2 oz Weight 96 lb 3.2 oz I&O: 05/30/18 05/31/18 06/01/18 06:59 06:59 06:59 Intake Total 885 1350 300 Balance 885 1350 300 Result Diagrams: 06/01/18 05:26 06/01/18 05:26 Additional Labs: Accuchecks 05/31/18 05/31/18 05/31/18 15:44 11:57 06:04 POC Glucose 124 H 135 H 193 H 05/30/18 20:50 POC Glucose 234 H Phys Exam - Physical Examination Constitutional: NAD Respiratory: no wheezing, no rhonchi Cardiovascular: RRR, no rub Gastrointestinal: soft, non-tender, positive bowel sounds Musculoskeletal: no edema Neurological: moves all 4 limbs Dx/Plan - Plan DVT proph w/SCDs IMPRESSION: 1. DM2 2. HTN 3. CAD s/p stents 4. Hypomagnesemia 5. Anxiety and Depression/ CKD 2 / Moderate PEM PLAN: Cont NPH with sliding scale AM labs Cont Lisinopril/Maxzide Cont current meds as below Will follow Review of Systems - Review of Systems Cardiovascular: negative: chest pain, palpitations, orthopnea, paroxysmal nocturnal dyspnea, edema, light headedness, other Gastrointestinal: negative: Nausea, Vomiting, Abdominal Pain, Diarrhea, Constipation, Melena, Hematochezia, Other - Medications/Allergies Allergies/Adverse Reactions: Allergies Allergy/AdvReac Type Severity Reaction Status Date / Time No Known Drug Allergies Allergy Verified 05/13/18 13:16 Medications: Current Medications Acetaminophen (Tylenol) 650 mg PO Q6HR [facility] Stop: 06/01/18 18:01 Last Admin: 05/31/18 18:22 Dose: 650 mg Hydrocodone Bitart/Acetaminophen ([place] 7.5/325) 1 tab PO Q6HR [facility] Stop: 06/01/18 18:01 Last Admin: 05/31/18 18:22 Dose: 1 tab Amlodipine Besylate (Norvasc) 2.5 mg PO DAILY [facility] Last Admin: 05/31/18 09:32 Dose: 2.5 mg Dextrose/Water (Dextrose 50%) 25 gm SLOW IVP PRN PRN PRN Reason: Hypoglycemia Diphenhydramine HCl (Benadryl) 25 mg IVP Q3H PRN PRN Reason: Itching Diphenhydramine HCl (Benadryl) 25 mg PO Q3H PRN PRN Reason: Itching Diphenhydramine HCl (Benadryl) 25 mg IM Q3H PRN PRN Reason: Itching Ezetimibe (Zetia) 5 mg PO HS [facility] Last Admin: 05/30/18 21:19 Dose: 5 mg Famotidine (Pepcid) 20 mg PO BID [facility] Last Admin: 05/31/18 09:32 Dose: 20 mg Glucagon (Glucagon) 1 mg IM PRN PRN PRN Reason: Hypoglycemia Hydralazine HCl (Apresoline) 10 mg SLOW IVP Q4H PRN PRN Reason: SBP Greater Than 180 Dextrose/Water (D5w) 1,000 mls @ 0 mls/hr IV .Q0M PRN PRN Reason: Hypoglycemia Dextrose/Sodium Chloride (D5 1/2 Ns) 1,000 mls @ 75 mls/hr IV .[id number] [facility] Last Admin: 05/31/18 18:45 Dose: 1,000 mls Fentanyl Citrate 2,000 mcg/ (Sodium Chloride) 100 mls @ 0 mls/hr IV INF PRN PRN Reason: Pain Last Admin: 05/31/18 00:02 Dose: 100 mls Insulin Human NPH (Humulin N) 10 unit SC DAILY [facility] Last Admin: 05/31/18 09:30 Dose: 10 unit Insulin Human Regular (Humulin R) 0 units SC .MILD SLIDING SCALE PRN PRN Reason: Mild Correctional Scale Last Admin: 05/31/18 06:18 Dose: 2 unit Insulin Human Regular (Humulin R) 0 units SC .BEDTIME SLIDING SC PRN PRN Reason: Bedtime Correctional Scale Last Admin: 05/30/18 21:34 Dose: 2 unit Ketorolac Tromethamine (Toradol) 15 mg IVP Q6HR [facility] Stop: 06/01/18 18:01 Last Admin: 05/31/18 18:41 Dose: 15 mg Lisinopril (Zestril) 20 mg PO DAILY [facility] Last Admin: 05/31/18 09:33 Dose: 20 mg Naloxone HCl (Narcan) 0.2 mg IV Q5MIN PRN PRN Reason: Opiate Reversal Ondansetron HCl (Zofran Odt) 4 mg PO Q6H PRN PRN Reason: Nausea/Vomiting Last Admin: 05/29/18 16:45 Dose: 4 mg Ondansetron HCl (Zofran) 4 mg IVP Q6H PRN PRN Reason: Nausea/Vomiting Last Admin: 05/29/18 04:52 Dose: 4 mg Ondansetron HCl (Zofran) 4 mg IVP Q6H PRN PRN Reason: Nausea/Vomiting Promethazine HCl (Phenergan) 12.5 mg IM Q4H PRN PRN Reason: Nausea/Vomiting Last Admin: 05/31/18 02:55 Dose: 12.5 mg Saccharomyces Boulardii (Florastor) [address] [facility] Last Admin: 05/31/18 09:32 Dose: 250 mg Simvastatin (Zocor) 10 mg PO [facility] Last Admin: 05/30/18 21:20 Dose: 10 mg Sodium Chloride (Flush - Normal Saline) 10 ml IVF PRN PRN PRN Reason: Saline Flush Trazodone HCl (Desyrel) 25 mg PO [facility] Last Admin: 05/30/18 21:18 Dose: 25 mg Triamterene/HCTZ (Maxzide-25) [facility] Last Admin: 05/31/18 09:33 Dose: 1 tab Zolpidem Tartrate (Ambien) 5 mg PO HSPRN PRN PRN Reason: Insomnia
[2018-05-31] MEDS: traZODone HCl 50 MG TAB PO SCH (20:53)
[2018-05-31] MEDS: Ezetimibe 10 MG TAB PO SCH (20:54)
[2018-05-31] MEDS: Simvastatin 20 MG TAB PO SCH (20:54)
[2018-06-01] MEDS: Acetaminophen 325 MG TAB PO SCH ×3 (06:07→19:38)
[2018-06-01] MEDS: HYDROcodone/Acetaminophen 7.5/325 mg Tablet PO SCH ×3 (06:07→19:38)
[2018-06-01] MEDS: Ketorolac Tromethamine 30 MG/ML VIAL IVP SCH ×3 (06:08→19:39)
[2018-06-01 06:28] LABS: #Eosinphils 0.6 thou/uL (0.0-0.7); #Lymphocytes 2.4 thou/uL (1.20-3.40); #Monocytes 0.8 thou/uL (0.11-0.59); #Neutrophils 3.9 thou/uL (1.40-6.50); %Basophils 0.6 % (0.0-1.0); %Eosinophils 7.7 % (0.0-10.0); %Lymphocytes 30.3 % (21.0-51.0); %Monocytes 10.7 % (0.0-10.0); %Neutrophils 50.7 % (42.0-75.0); Hemoglobin 6.5 g/dL (12.0-16.0); Mean Corpuscular HGB CONC 31.3 g/dL (32.0-36.0); Mean Corpuscular Hemoglobin 29.2 pg (27.0-31.0); Mean Corpuscular Volume 93.3 fL (78.0-98.0); Platelet Count 570 thou/uL (130-400); RBC Distribution Width 12.9 % (11.5-14.5); Red Blood Cell (RBC) Count 2.21 mill/uL (4.20-5.40); White Blood Cell (WBC) Count 7.8 thou/uL (4.8-10.8)
[2018-06-01 06:39] LABS: Albumin 1.9 g/dL (3.4-4.8); Anion Gap 9 mmol/L (10-20); BUN (Urea Nitrogen) 13 mg/dL (9.8-20.1); BUN/Creatinine Ratio 21.67; Calc. Creatinine Clearance 62 mL/min (70-130); Calcium 7.5 mg/dL (7.8-10.44); Carbon Dioxide 23 mmol/L (23-31); Chloride 99 mmol/L (98-107); Estimated GFR-MDRD Greater than 90; Glucose 141 mg/dL (80-115); Magnesium 1.4 mg/dL (1.6-2.6); Phosphorus 4.1 mg/dL (2.3-4.7); Potassium 4.1 mmol/L (3.5-5.1); Sodium 127 mmol/L (136-145)
[2018-06-01] MEDS: Insulin Regular 300 UNITS/3 ML VIAL SC PRN (07:06)
[2018-06-01] MEDS: fentaNYL Citrate/PF 2,000 MCG in Sodium Chloride 0.9% 60 ML IV PRN (08:00)
[2018-06-01] MEDS: Dextrose 5 %-0.45 % NaCl 1,000 ML IV SCH (08:28)
[2018-06-01] MEDS: Lisinopril 20 MG TAB PO SCH (08:30)
[2018-06-01] MEDS: Famotidine 20 MG TAB PO SCH ×2 (08:31→21:10)
[2018-06-01] MEDS: Amlodipine 5 MG TAB PO SCH (08:31)
[2018-06-01] MEDS: Saccharomyces boulardii 250 MG CAP PO SCH (08:32)
[2018-06-01] MEDS: Triamterene/Hydrochlorothiazide 37.5 mg/25 mg Tablet PO SCH (08:32)
[2018-06-01] MEDS ORDERED: hydrALAZINE 20 MG/ML VIAL SLOW IVP PRN (08:40)
[2018-06-01] MEDS ORDERED: Magnesium Sulfate 2 GM in Sodium Chloride 0.9% 100 ML IVPB SCH (08:45)
[2018-06-01] MEDS ORDERED: Sodium Chloride 0.9% 1,000 ML IV SCH (08:45)
[2018-06-01] MEDS ORDERED: Magnesium 2 GM/50 ML 2 GM in Premix Bag 1 BAG IVPB SCH (09:00)
[2018-06-01] MEDS: Ondansetron ODT 4 MG TAB PO PRN ×2 (11:35→21:10)
[2018-06-01] MEDS: NPH, Human Insulin Isophane 300 UNIT/3 ML VIAL SC SCH (16:51)
[2018-06-01] MEDS: Simvastatin 20 MG TAB PO SCH (21:10)
[2018-06-01] MEDS: Ezetimibe 10 MG TAB PO SCH (21:10)
[2018-06-01] MEDS: traZODone HCl 50 MG TAB PO SCH (21:20)
--- NOTE | 2018-06-01 22:17 | PDOC.PN ---
- Subjective Encounter Start Date: 06/01/18 Encounter Start Time: 10:45 Patient seen and examined for med mngt. Poor appetite per family. No new complaints. No overnight events - Objective Resuscitation Status: Resuscitation Status FULL:Full Resuscitation MAR Reviewed: Yes Vital Signs & Weight: Vital Signs (12 hours) Temp Pulse Pulse Resp BP BP Pulse Ox 06/01/18 20:00 98.8 F 79 20 139/76 100 06/01/18 16:20 98.6 F 86 22 H 131/68 97 06/01/18 16:15 98.6 F 86 22 H 131/68 97 06/01/18 13:05 98.6 F 90 18 128/60 94 L 06/01/18 12:40 98.8 F 95 18 123/71 123/71 95 06/01/18 10:30 98.3 F 85 16 136/74 95 Weight Admit Weight 96 lb 3.2 oz Weight 96 lb 3.2 oz I&O: 05/31/18 06/01/18 06/02/18 06:59 06:59 06:59 Intake Total 1350 1680 350 Balance 1350 1680 350 Result Diagrams: 06/01/18 05:26 06/01/18 05:26 Additional Labs: Accuchecks 06/01/18 06/01/18 06/01/18 20:37 18:37 16:11 POC Glucose 98 140 H 198 H 06/01/18 06/01/18 10:29 06:13 POC Glucose 77 162 H Phys Exam - Physical Examination Constitutional: NAD Respiratory: no wheezing, no rhonchi Cardiovascular: RRR, no rub Gastrointestinal: soft, non-tender, positive bowel sounds Musculoskeletal: no edema Rt knee dressing + Neurological: non-focal Dx/Plan - Plan DVT proph w/SCDs IMPRESSION: 1. DM2 2. HTN 3. Hyponatremia/Hypomagnesemia 4. Anemia - ?surgical blood loss/?nutritional 5. CAD s/p stents 6. Anxiety and Depression/ CKD 2 / Moderate PEM/ PLAN: Transfuse 1 unit PRBC DC IVF Replace MG Hold diuretics due to hyponatremia Cont sliding scale Hold NPH due to poor appetite AM labs Cont Lisinopril/Amlodipine Cont current meds as below Will follow Review of Systems - Review of Systems Respiratory: negative: Cough, Dry, Shortness of Breath, Hemoptysis, SOB with Excertion, Pleuritic Pain, Sputum, Wheezing Cardiovascular: negative: chest pain, palpitations, orthopnea, paroxysmal nocturnal dyspnea, edema, light headedness, other - Medications/Allergies Allergies/Adverse Reactions: Allergies Allergy/AdvReac Type Severity Reaction Status Date / Time No Known Drug Allergies Allergy Verified 05/13/18 13:16 Medications: Current Medications Amlodipine Besylate (Norvasc) 2.5 mg PO DAILY [facility] Last Admin: 06/01/18 08:31 Dose: 2.5 mg Dextrose/Water (Dextrose 50%) 25 gm SLOW IVP PRN PRN PRN Reason: Hypoglycemia Diphenhydramine HCl (Benadryl) 25 mg IVP Q3H PRN PRN Reason: Itching Diphenhydramine HCl (Benadryl) 25 mg PO Q3H PRN PRN Reason: Itching Diphenhydramine HCl (Benadryl) 25 mg IM Q3H PRN PRN Reason: Itching Ezetimibe (Zetia) 5 mg PO HS [facility] Last Admin: 06/01/18 21:10 Dose: 5 mg Famotidine (Pepcid) 20 mg PO BID [facility] Last Admin: 06/01/18 21:10 Dose: 20 mg Glucagon (Glucagon) 1 mg IM PRN PRN PRN Reason: Hypoglycemia Hydralazine HCl (Apresoline) 10 mg SLOW IVP Q4H PRN PRN Reason: SBP Greater Than 180 Dextrose/Water (D5w) 1,000 mls @ 0 mls/hr IV .Q0M PRN PRN Reason: Hypoglycemia Fentanyl Citrate 2,000 mcg/ (Sodium Chloride) 100 mls @ 0 mls/hr IV INF PRN PRN Reason: Pain Last Admin: 06/01/18 08:00 Dose: 100 mls Insulin Human NPH (Humulin N) 10 unit SC DAILY [facility] Last Admin: 06/01/18 16:51 Dose: 10 unit Insulin Human Regular (Humulin R) 0 units SC .MILD SLIDING SCALE PRN PRN Reason: Mild Correctional Scale Last Admin: 06/01/18 07:06 Dose: 2 unit Insulin Human Regular (Humulin R) 0 units SC .BEDTIME SLIDING SC PRN PRN Reason: Bedtime Correctional Scale Last Admin: 05/30/18 21:34 Dose: 2 unit Lisinopril (Zestril) 20 mg PO DAILY [facility] Last Admin: 06/01/18 08:30 Dose: 20 mg Naloxone HCl (Narcan) 0.2 mg IV Q5MIN PRN PRN Reason: Opiate Reversal Ondansetron HCl (Zofran Odt) 4 mg PO Q6H PRN PRN Reason: Nausea/Vomiting Last Admin: 06/01/18 21:10 Dose: 4 mg Ondansetron HCl (Zofran) 4 mg IVP Q6H PRN PRN Reason: Nausea/Vomiting Promethazine HCl (Phenergan) 12.5 mg IM Q4H PRN PRN Reason: Nausea/Vomiting Last Admin: 05/31/18 02:55 Dose: 12.5 mg Saccharomyces [place]oulardii ([facility] Admin: 06/01/18 08:32 Dose: 250 mg Simvastatin (Zocor) 10 mg PO [facility] Last Admin: 06/01/18 21:10 Dose: 10 mg Sodium Chloride (Flush - Normal Saline) 10 ml IVF PRN PRN PRN Reason: Saline Flush Sodium Chloride (Flush - Normal Saline) 10 ml IVF PRN PRN PRN Reason: Saline Flush Trazodone HCl (Desyrel) 25 mg PO [facility] Last Admin: 06/01/18 21:20 Dose: 25 mg Triamterene/HCTZ (Maxzide-25) 1 tab PO [facility] Last Admin: 06/01/18 08:32 Dose: 1 tab Zolpidem Tartrate (Ambien) 5 mg PO HSPRN PRN PRN Reason: Insomnia
[2018-06-02] MEDS ORDERED: HYDROcodone/Acetaminophen 7.5/325 mg Tablet PO PRN (00:07)
[2018-06-02] MEDS: HYDROcodone/Acetaminophen 7.5/325 mg Tablet PO PRN ×4 (00:36→20:26)
[2018-06-02 06:18] LABS: Anion Gap 10 mmol/L (10-20); BUN (Urea Nitrogen) 9 mg/dL (9.8-20.1); Calc. Creatinine Clearance 67 mL/min (70-130); Calcium 7.9 mg/dL (7.8-10.44); Carbon Dioxide 21 mmol/L (23-31); Chloride 103 mmol/L (98-107); Estimated GFR-MDRD Greater than 90; Glucose 137 mg/dL (80-115); Magnesium 1.3 mg/dL (1.6-2.6); Potassium 3.9 mmol/L (3.5-5.1); Sodium 130 mmol/L (136-145)
[2018-06-02 06:25] LABS: Hemoglobin 9.8 g/dL (12.0-16.0); Platelet Count 631 thou/uL (130-400)
[2018-06-02] MEDS: Gabapentin 100 MG CAP PO SCH ×2 (08:04→20:25)
[2018-06-02] MEDS: Amlodipine 5 MG TAB PO SCH (10:54)
[2018-06-02] MEDS: Saccharomyces boulardii 250 MG CAP PO SCH (10:55)
[2018-06-02] MEDS: Famotidine 20 MG TAB PO SCH ×2 (10:55→20:25)
[2018-06-02] MEDS: Lisinopril 20 MG TAB PO SCH (10:55)
[2018-06-02] MEDS: NPH, Human Insulin Isophane 300 UNIT/3 ML VIAL SC SCH (10:57)
[2018-06-02] MEDS: Triamterene/Hydrochlorothiazide 37.5 mg/25 mg Tablet PO SCH (11:00)
--- NOTE | 2018-06-02 11:41 | PDOC.PN ---
- Subjective Encounter Start Date: 06/02/18 Encounter Start Time: 11:40 Subjective: still has pain R knee - Objective Resuscitation Status: Resuscitation Status FULL:Full Resuscitation MAR Reviewed: Yes Vital Signs & Weight: Vital Signs (12 hours) Temp Pulse Resp BP BP Pulse Ox 06/02/18 10:55 158/74 H 06/02/18 10:54 158/74 H 06/02/18 08:00 93 L 06/02/18 07:37 98.5 F 84 14 164/74 H 93 L 06/02/18 04:00 98.5 F 97 22 H 155/67 H 98 06/02/18 00:00 98.8 F 88 18 143/61 H 99 Weight Admit Weight 96 lb 3.2 oz Weight 96 lb 3.2 oz I&O: 06/01/18 06/02/18 06/03/18 06:59 06:59 06:59 Intake Total 1680 1670 Balance 1680 1670 Result Diagrams: 06/02/18 05:35 06/02/18 05:35 Additional Labs: Accuchecks 06/02/18 06/02/18 06/01/18 10:51 06:00 20:37 POC Glucose 178 H 143 H 98 06/01/18 06/01/18 18:37 16:11 POC Glucose 140 H 198 H Phys Exam - Physical Examination Neck: no JVD Respiratory: clear to auscultation bilateral Cardiovascular: RRR, no significant murmur Gastrointestinal: soft, non-tender, positive bowel sounds Musculoskeletal: no edema bandaged R knee with brace Dx/Plan (1) CAD (coronary artery disease) Code(s): I25.10 - ATHSCL HEART DISEASE OF [place] CORONARY ARTERY W/O ANG PCTRS Status: Chronic Qualifiers: Coronary Disease-Associated Artery/Lesion type: [place] artery [place] vs. transplanted heart: [place] heart Associated angina: without angina Qualified Code(s): I25.10 - Atherosclerotic heart disease of [place] coronary artery without angina pectoris (2) Diabetes type 2, controlled Code(s): E11.9 - TYPE 2 DIABETES MELLITUS WITHOUT COMPLICATIONS Status: Chronic Qualifiers: Diabetes mellitus terminal carman insulin use: without terminal carman use Diabetes mellitus complication status: without complication Qualified Code(s): E11.9 - Type 2 diabetes mellitus without complications (3) Hypertension Code(s): I10 - ESSENTIAL (PRIMARY) HYPERTENSION Status: Chronic Qualifiers: Hypertension type: essential hypertension Qualified Code(s): I10 - Essential (primary) hypertension (4) PVD (peripheral vascular disease) Code(s): I73.9 - PERIPHERAL VASCULAR DISEASE, UNSPECIFIED Status: Chronic - Plan cont amlodipine, diuretic -: cont accu/ss nph, etc -: medically compensated * .
[2018-06-02] MEDS: fentaNYL Citrate/PF 2,000 MCG in Sodium Chloride 0.9% 60 ML IV PRN (13:27)
[2018-06-02] MEDS: Ondansetron PF 4 MG/2 ML Vial IVP PRN ×2 (16:33→22:22)
[2018-06-02] MEDS: Ezetimibe 10 MG TAB PO SCH (20:24)
[2018-06-02] MEDS: traZODone HCl 50 MG TAB PO SCH (20:25)
[2018-06-02] MEDS: Simvastatin 20 MG TAB PO SCH (20:26)
[2018-06-03] MEDS: HYDROcodone/Acetaminophen 7.5/325 mg Tablet PO PRN ×2 (04:01→09:45)
[2018-06-03] MEDS: Saccharomyces boulardii 250 MG CAP PO SCH (09:42)
[2018-06-03] MEDS: Lisinopril 20 MG TAB PO SCH (09:42)
[2018-06-03] MEDS: Triamterene/Hydrochlorothiazide 37.5 mg/25 mg Tablet PO SCH (09:43)
[2018-06-03] MEDS: Famotidine 20 MG TAB PO SCH ×2 (09:43→19:59)
[2018-06-03] MEDS: Gabapentin 100 MG CAP PO SCH ×2 (09:43→19:59)
[2018-06-03] MEDS: Amlodipine 5 MG TAB PO SCH (09:43)
[2018-06-03] MEDS: NPH, Human Insulin Isophane 300 UNIT/3 ML VIAL SC SCH (09:44)
--- NOTE | 2018-06-03 11:03 | PDOC.PN ---
- Subjective Encounter Start Date: 06/03/18 Encounter Start Time: 11:01 Subjective: cont to have pain in R leg. neuropathy pain in hands, legs - Objective Resuscitation Status: Resuscitation Status FULL:Full Resuscitation MAR Reviewed: Yes Vital Signs & Weight: Vital Signs (12 hours) Temp Pulse Resp BP BP Pulse Ox 06/03/18 09:43 92 06/03/18 09:42 158/74 H 06/03/18 08:19 98.5 F 92 12 167/81 H 99 06/03/18 05:11 99.6 F 73 22 H 155/67 H 97 06/03/18 01:12 99.4 F 87 19 158/57 H 98 Weight Admit Weight 96 lb 3.2 oz Weight 96 lb 3.2 oz I&O: 06/02/18 06/03/18 06/04/18 06:59 06:59 06:59 Intake Total 1670 860 Balance 1670 860 Result Diagrams: 06/02/18 05:35 06/02/18 05:35 Additional Labs: Accuchecks 06/03/18 06/03/18 06/02/18 09:56 05:30 21:17 POC Glucose 97 103 134 H 06/02/18 06/02/18 06/02/18 18:56 15:59 13:33 POC Glucose 121 H 82 133 H Phys Exam - Physical Examination Neck: no JVD Respiratory: clear to auscultation bilateral Cardiovascular: RRR, no significant murmur Gastrointestinal: soft, positive bowel sounds Musculoskeletal: no edema Dx/Plan (1) CAD (coronary artery disease) Code(s): I25.10 - ATHSCL HEART DISEASE OF [place] CORONARY ARTERY W/O ANG PCTRS Status: Chronic Qualifiers: Coronary Disease-Associated Artery/Lesion type: [place] artery [place] vs. transplanted heart: [place] heart Associated angina: without angina Qualified Code(s): I25.10 - Atherosclerotic heart disease of [place] coronary artery without angina pectoris (2) Diabetes type 2, controlled Code(s): E11.9 - TYPE 2 DIABETES MELLITUS WITHOUT COMPLICATIONS Status: Chronic Qualifiers: Diabetes mellitus molybden[place] steamer operator insulin use: without molybdenum steamer operator use Diabetes mellitus complication status: without complication Qualified Code(s): E11.9 - Type 2 diabetes mellitus without complications (3) Hypertension Code(s): I10 - ESSENTIAL (PRIMARY) HYPERTENSION Status: Chronic Qualifiers: Hypertension type: essential hypertension Qualified Code(s): I10 - Essential (primary) hypertension (4) PVD (peripheral vascular disease) Code(s): I73.9 - PERIPHERAL VASCULAR DISEASE, UNSPECIFIED Status: Chronic (5) Anemia, normocytic normochromic Code(s): D64.9 - ANEMIA, UNSPECIFIED Status: Chronic (6) Diabetic neuropathy Code(s): E11.40 - TYPE 2 DIABETES MELLITUS WITH DIABETIC NEUROPATHY, UNSP Status: Chronic Qualifiers: Diabetes mellitus complication detail: diabetic polyneuropathy - Plan ongoing discussionre tx for wound -: cont YENY -: Cont accu/ss NPH * .
[2018-06-03] MEDS: HYDROcodone/Acetaminophen 5/325 mg Tablet PO SCH ×2 (13:47→18:51)
[2018-06-03] MEDS: Ezetimibe 10 MG TAB PO SCH (19:59)
[2018-06-03] MEDS: Simvastatin 20 MG TAB PO SCH (20:00)
[2018-06-03] MEDS: traZODone HCl 50 MG TAB PO SCH (20:00)
[2018-06-03] MEDS: Ondansetron PF 4 MG/2 ML Vial IVP PRN (20:05)
[2018-06-03] MEDS: fentaNYL Citrate/PF 2,000 MCG in Sodium Chloride 0.9% 60 ML IV PRN (23:53)
[2018-06-04] MEDS: HYDROcodone/Acetaminophen 5/325 mg Tablet PO SCH ×4 (00:54→18:42)
[2018-06-04 05:01] LABS: Hemoglobin 8.3 g/dL (12.0-16.0); Mean Corpuscular HGB CONC 31.6 g/dL (32.0-36.0); Mean Corpuscular Hemoglobin 29.9 pg (27.0-31.0); Mean Corpuscular Volume 94.5 fL (78.0-98.0); Mean Platelet Volume 5.6 fL (7.4-10.4); Platelet Count 728 thou/uL (130-400); RBC Distribution Width 13.1 % (11.5-14.5); Red Blood Cell (RBC) Count 2.77 mill/uL (4.20-5.40); White Blood Cell (WBC) Count 10.7 thou/uL (4.8-10.8)
[2018-06-04] MEDS: Insulin Regular 300 UNITS/3 ML VIAL SC PRN (06:24)
--- NOTE | 2018-06-04 08:01 | PDOC.PN ---
- Subjective Encounter Start Date: 06/04/18 Encounter Start Time: 07:59 Subjective: still has pain in R leg - Objective Resuscitation Status: Resuscitation Status FULL:Full Resuscitation MAR Reviewed: Yes Vital Signs & Weight: Vital Signs (12 hours) Temp Pulse Resp BP Pulse Ox 06/04/18 07:47 98.6 F 94 18 151/74 H 93 L 06/04/18 04:33 98.0 F 86 18 158/69 H 97 06/04/18 00:40 98.3 F 84 18 168/70 H 98 06/03/18 20:51 98.6 F 87 18 170/74 H 96 Weight Admit Weight 96 lb 3.2 oz Weight 96 lb 3.2 oz I&O: 06/03/18 06/04/18 06/05/18 06:59 06:59 06:59 Intake Total 860 800 Balance 860 800 Result Diagrams: 06/04/18 04:04 06/02/18 05:35 Additional Labs: Accuchecks 06/04/18 06/03/18 06/03/18 05:41 21:12 17:21 POC Glucose 166 H 208 H 74 06/03/18 06/03/18 15:29 09:56 POC Glucose 60 L 97 Phys Exam - Physical Examination Neck: no JVD Respiratory: clear to auscultation bilateral Cardiovascular: RRR, no significant murmur Gastrointestinal: soft, positive bowel sounds Musculoskeletal: no edema Dx/Plan (1) CAD (coronary artery disease) Code(s): I25.10 - ATHSCL HEART DISEASE OF [place] CORONARY ARTERY W/O ANG PCTRS Status: Chronic Qualifiers: Coronary Disease-Associated Artery/Lesion type: [place] artery [place] vs. transplanted heart: [place] heart Associated angina: without angina Qualified Code(s): I25.10 - Atherosclerotic heart disease of [place] coronary artery without angina pectoris (2) Diabetes type 2, controlled Code(s): E11.9 - TYPE 2 DIABETES MELLITUS WITHOUT COMPLICATIONS Status: Chronic Qualifiers: Diabetes mellitus [place] insulin use: without care home use Diabetes mellitus complication status: without complication Qualified Code(s): E11.9 - Type 2 diabetes mellitus without complications (3) Hypertension Code(s): I10 - ESSENTIAL (PRIMARY) HYPERTENSION Status: Chronic Qualifiers: Hypertension type: essential hypertension Qualified Code(s): I10 - Essential (primary) hypertension (4) PVD (peripheral vascular disease) Code(s): I73.9 - PERIPHERAL VASCULAR DISEASE, UNSPECIFIED Status: Chronic (5) Anemia, normocytic normochromic Code(s): D64.9 - ANEMIA, UNSPECIFIED Status: Chronic (6) Diabetic neuropathy Code(s): E11.40 - TYPE 2 DIABETES MELLITUS WITH DIABETIC NEUROPATHY, UNSP Status: Chronic Qualifiers: Diabetes mellitus complication detail: diabetic polyneuropathy - Plan planned surgery R leg today, medically stable, FU postop * .
[2018-06-04] MEDS: Triamterene/Hydrochlorothiazide 37.5 mg/25 mg Tablet PO SCH (08:27)
[2018-06-04] MEDS: Lisinopril 20 MG TAB PO SCH (08:27)
[2018-06-04] MEDS: Saccharomyces boulardii 250 MG CAP PO SCH (08:28)
[2018-06-04] MEDS: Amlodipine 5 MG TAB PO SCH (08:28)
[2018-06-04] MEDS: Gabapentin 100 MG CAP PO SCH ×2 (08:29→21:20)
[2018-06-04] MEDS: Famotidine 20 MG TAB PO SCH ×2 (08:29→21:20)
[2018-06-04] MEDS: NPH, Human Insulin Isophane 300 UNIT/3 ML VIAL SC SCH (08:30)
[2018-06-04] MEDS ORDERED: CEFAZOLIN/Water 2 GM/20 ML SYRINGE SLOW IVP SCH (14:30)
[2018-06-04] MEDS: Dextrose 5 %-0.45 % NaCl 1,000 ML IV SCH (15:08)
[2018-06-04] MEDS: Ondansetron ODT 4 MG TAB PO PRN (17:33)
[2018-06-04] MEDS: Simvastatin 20 MG TAB PO SCH (21:19)
[2018-06-04] MEDS: Ezetimibe 10 MG TAB PO SCH (21:20)
[2018-06-04] MEDS: traZODone HCl 50 MG TAB PO SCH (21:21)
[2018-06-05] MEDS: HYDROcodone/Acetaminophen 5/325 mg Tablet PO SCH ×5 (00:25→22:40)
[2018-06-05] MEDS: Dextrose 5 %-0.45 % NaCl 1,000 ML IV SCH ×3 (02:55→22:27)
[2018-06-05] MEDS: fentaNYL Citrate/PF 2,000 MCG in Sodium Chloride 0.9% 60 ML IV PRN (04:11)
--- NOTE | 2018-06-05 08:15 | PDOC.PN ---
- Subjective Encounter Start Date: 06/05/18 Encounter Start Time: 08:13 Subjective: pain R leg persists - Objective Resuscitation Status: Resuscitation Status FULL:Full Resuscitation MAR Reviewed: Yes Vital Signs & Weight: Vital Signs (12 hours) Temp Pulse Resp BP Pulse Ox 06/05/18 07:53 98.6 F 100 14 165/82 H 93 L 06/05/18 04:52 98.6 F 91 18 164/63 H 96 06/05/18 00:28 99.0 F 85 16 156/73 H 96 06/04/18 22:00 98 06/04/18 20:21 98.5 F 82 16 138/67 98 Weight Admit Weight 96 lb 3.2 oz Weight 96 lb 3.2 oz I&O: 06/04/18 06/05/18 06/06/18 06:59 06:59 06:59 Intake Total 800 1260 Balance 800 1260 Result Diagrams: 06/04/18 04:04 06/02/18 05:35 Additional Labs: Accuchecks 06/05/18 06/04/18 06/04/18 05:24 20:40 16:34 POC Glucose 152 H 177 H 148 H 06/04/18 06/04/18 12:45 11:39 POC Glucose 83 59 L* Phys Exam - Physical Examination Neck: no JVD Respiratory: clear to auscultation bilateral Cardiovascular: RRR, no significant murmur Gastrointestinal: soft, positive bowel sounds Musculoskeletal: no edema R knee bandaged Dx/Plan (1) CAD (coronary artery disease) Code(s): I25.10 - ATHSCL HEART DISEASE OF [place] CORONARY ARTERY W/O ANG PCTRS Status: Chronic Qualifiers: Coronary Disease-Associated Artery/Lesion type: [place] artery [place] vs. transplanted heart: [place] heart Associated angina: without angina Qualified Code(s): I25.10 - Atherosclerotic heart disease of [place] coronary artery without angina pectoris (2) Diabetes type 2, controlled Code(s): E11.9 - TYPE 2 DIABETES MELLITUS WITHOUT COMPLICATIONS Status: Chronic Qualifiers: Diabetes mellitus [place] foreman insulin use: without jail use Diabetes mellitus complication status: without complication Qualified Code(s): E11.9 - Type 2 diabetes mellitus without complications (3) Hypertension Code(s): I10 - ESSENTIAL (PRIMARY) HYPERTENSION Status: Chronic Qualifiers: Hypertension type: essential hypertension Qualified Code(s): I10 - Essential (primary) hypertension (4) PVD (peripheral vascular disease) Code(s): I73.9 - PERIPHERAL VASCULAR DISEASE, UNSPECIFIED Status: Chronic (5) Anemia, normocytic normochromic Code(s): D64.9 - ANEMIA, UNSPECIFIED Status: Chronic (6) Diabetic neuropathy Code(s): E11.40 - TYPE 2 DIABETES MELLITUS WITH DIABETIC NEUROPATHY, UNSP Status: Chronic Qualifiers: Diabetes mellitus complication detail: diabetic polyneuropathy - Plan planned amputation today, FU post op -: cont accu/ss. PRN parenteral antihypertensives in perii-operative peroid * .
[2018-06-05] MEDS: Amlodipine 5 MG TAB PO SCH (08:33)
[2018-06-05] MEDS: NPH, Human Insulin Isophane 300 UNIT/3 ML VIAL SC SCH (08:34)
[2018-06-05] MEDS: Lisinopril 20 MG TAB PO SCH (08:34)
[2018-06-05] MEDS: Triamterene/Hydrochlorothiazide 37.5 mg/25 mg Tablet PO SCH (08:34)
[2018-06-05] MEDS: Famotidine 20 MG TAB PO SCH ×2 (08:34→22:45)
[2018-06-05] MEDS: Gabapentin 100 MG CAP PO SCH ×2 (08:34→17:16)
[2018-06-05] MEDS: Saccharomyces boulardii 250 MG CAP PO SCH (08:34)
[2018-06-05] MEDS ORDERED: PHENYLEPHRINE-NS 100 MCG/ML 10 ML SYRINGE ONE ×2 (11:56→14:20)
[2018-06-05] MEDS ORDERED: Metoclopramide HCl 10 MG/2 ML VIAL ONE (11:56)
[2018-06-05] MEDS ORDERED: PROPOFOL 200 MG/20 ML VIAL ONE (11:56)
[2018-06-05] MEDS ORDERED: Ondansetron PF 4 MG/2 ML Vial ONE (11:56)
[2018-06-05] MEDS ORDERED: HYDROmorphone 2 MG/ML VIAL ONE (12:19)
[2018-06-05] MEDS ORDERED: CEFAZOLIN/Water 2 GM/20 ML SYRINGE ONE (12:58)
[2018-06-05] MEDS ORDERED: Bupivacaine 0.75% W/DEXTROSE 8.25% 2 ML AMP ONE (13:14)
[2018-06-05] MEDS ORDERED: Lidocaine 1% PF 5 ML VIAL ONE (13:15)
[2018-06-05] MEDS ORDERED: Midazolam HCl 2 mg/2 ml Vial ONE (13:36)
[2018-06-05] MEDS ORDERED: CEFAZOLIN/Water 2 GM/20 ML SYRINGE SLOW IVP SCH (14:00)
[2018-06-05] MEDS ORDERED: Ondansetron HCl/PF 4 MG/2 ML Vial IVP PRN (14:43)
[2018-06-05] MEDS: Ondansetron PF 4 MG/2 ML Vial IVP PRN (17:10)
--- NOTE | 2018-06-05 18:02 | OP ---
DATE OF PROCEDURE: 06/05/2018 OPERATION: Right above knee amputation. PREOPERATIVE DIAGNOSES: Severe wound of right knee with peripheral vascular disease and diabetes. POSTOPERATIVE DIAGNOSES: Severe wound of right knee with peripheral vascular disease and diabetes. COMPLICATIONS: None. ESTIMATED BLOOD LOSS: 100 mL SURGEON: Lázaro Spears M.D. PRESSURE TANK OPERATOR: Grady Srinivasan PA-C. INDICATIONS: Ms. Kumar is a 67-year-old female who has severe wound with full-thickness skin loss an d exposed bone on the right leg. She has been indicated now for above knee amputation after failure of all other measures. Goal of surgery is to relieve pain and prevent further infection or complicat ion. Risks of surgery have been reviewed in detail. DESCRIPTION OF PROCEDURE: Ms. Kumar was identified in the preoperative holding area. Her correct ex tremity was marked. She was carried to the operating room. She was positioned supine. General anes thesia was induced. A multidisciplinary timeout was performed. The right lower extremity was preppe d and draped in the sterile fashion. We began the procedure with making a fish mouth type incision over the thigh. We dissected down thro ugh the subcutaneous tissues to the bony level. At this point, we cut through all muscular structure s using cautery. We obtained hemostasis as we went. We then isolated the medial neurovascular bundl e. The vessels were tied with 0 silk ties. We then identified the sciatic nerve and this was cut sh arply. We obtained hemostasis in both anterior and posterior flaps. At this point, we exposed the b one and cut the bone with an oscillating saw. We then used a rasp to smooth the bony edges. At this point, we proceeded to thoroughly irrigate the wounds. Finally, after final hemostasis, we c losed Vicryl suture, 2-0 Vicryl suture, una and nylon were used. A sterile dressing was pl aced. The patient was taken to the recovery room. There were no implants.
[2018-06-05] MEDS: CEFAZOLIN/Water 2 GM/20 ML SYRINGE SLOW IVP SCH (22:45)
[2018-06-05] MEDS: Simvastatin 20 MG TAB PO SCH (22:45)
[2018-06-05] MEDS: traZODone HCl 50 MG TAB PO SCH (22:46)
[2018-06-05] MEDS: Ezetimibe 10 MG TAB PO SCH (22:49)
[2018-06-06] MEDS: HYDROcodone/Acetaminophen 5/325 mg Tablet PO SCH ×4 (04:00→23:24)
[2018-06-06 05:39] LABS: Anion Gap 11 mmol/L (10-20); BUN (Urea Nitrogen) 6 mg/dL (9.8-20.1); Calc. Creatinine Clearance 67 mL/min (70-130); Calcium 7.8 mg/dL (7.8-10.44); Carbon Dioxide 23 mmol/L (23-31); Chloride 103 mmol/L (98-107); Estimated GFR-MDRD Greater than 90; Glucose 158 mg/dL (80-115); Potassium 4.1 mmol/L (3.5-5.1); Sodium 133 mmol/L (136-145)
[2018-06-06] MEDS: CEFAZOLIN/Water 2 GM/20 ML SYRINGE SLOW IVP SCH (05:41)
[2018-06-06] MEDS: Famotidine 20 MG TAB PO SCH ×2 (08:46→21:03)
[2018-06-06] MEDS: Triamterene/Hydrochlorothiazide 37.5 mg/25 mg Tablet PO SCH (08:46)
[2018-06-06] MEDS: Aspirin 81 mg Enteric Coated Tablet PO SCH (08:47)
[2018-06-06] MEDS: Gabapentin 100 MG CAP PO SCH ×2 (08:47→21:03)
[2018-06-06] MEDS: Saccharomyces boulardii 250 MG CAP PO SCH (08:47)
[2018-06-06] MEDS: Lisinopril 20 MG TAB PO SCH ×2 (08:48→21:03)
[2018-06-06] MEDS: Amlodipine 5 MG TAB PO SCH (08:48)
[2018-06-06] MEDS: NPH, Human Insulin Isophane 300 UNIT/3 ML VIAL SC SCH (08:49)
[2018-06-06] MEDS: Dextrose 5 %-0.45 % NaCl 1,000 ML IV SCH (08:49)
--- NOTE | 2018-06-06 10:10 | PDOC.PN ---
- Subjective Encounter Start Date: 06/06/18 Encounter Start Time: 07:50 -: old records requested/rev Patient seen and examined. No new complaints. No overnight events s/p right aka, on exercise physiology professor - Objective Resuscitation Status: Resuscitation Status FULL:Full Resuscitation MAR Reviewed: Yes Vital Signs & Weight: Vital Signs (12 hours) Temp Pulse Resp BP BP Pulse Ox 06/06/18 08:48 163/75 H 06/06/18 08:00 98.8 F 94 15 163/75 H 97 06/06/18 05:17 98.4 F 96 18 168/69 H 100 06/06/18 00:25 98.2 F 103 H 16 162/72 H 99 Weight Admit Weight 96 lb 3.2 oz Weight 96 lb 3.2 oz I&O: 06/05/18 06/06/18 06/07/18 06:59 06:59 06:59 Intake Total 1260 710 300 Balance 1260 710 300 Result Diagrams: 06/06/18 04:56 06/06/18 04:56 Additional Labs: Accuchecks 06/06/18 06/05/18 06/05/18 05:54 20:21 14:06 POC Glucose 159 H 156 H 156 H 06/05/18 10:39 POC Glucose 201 H Phys Exam - Physical Examination Constitutional: NAD HEENT: PERRLA, moist MMs, sclera anicteric Neck: no JVD, supple Respiratory: no wheezing, no rales, no rhonchi Cardiovascular: RRR, no significant murmur, no rub Gastrointestinal: soft, non-tender, no distention, positive bowel sounds Musculoskeletal: no edema right AKA with dressing Neurological: non-focal, normal sensation, moves all 4 limbs Psychiatric: normal affect, A&O x 3 Skin: no rash, normal turgor Dx/Plan (1) Status post above knee amputation of right lower extremity Code(s): Z89.611 - ACQUIRED ABSENCE OF RIGHT LEG ABOVE KNEE Status: Acute (2) Anemia, normocytic normochromic Code(s): D64.9 - ANEMIA, UNSPECIFIED Status: Chronic (3) Anxiety and depression Code(s): F41.9 - ANXIETY DISORDER, UNSPECIFIED; F32.9 - MAJOR DEPRESSIVE DISORDER, SINGLE EPISODE, UNSPECIFIED Status: Chronic (4) CAD (coronary artery disease) Code(s): I25.10 - ATHSCL HEART DISEASE OF [place] CORONARY ARTERY W/O ANG PCTRS Status: Chronic Qualifiers: Coronary Disease-Associated Artery/Lesion type: [place] artery [place] vs. transplanted heart: [place] heart Associated angina: without angina Qualified Code(s): I25.10 - Atherosclerotic heart disease of [place] coronary artery without angina pectoris (5) Diabetes type 2, controlled Code(s): E11.9 - TYPE 2 DIABETES MELLITUS WITHOUT COMPLICATIONS Status: Chronic Qualifiers: Diabetes mellitus long term care pharmacist insulin use: without long term care pharmacist use Diabetes mellitus complication status: without complication Qualified Code(s): E11.9 - Type 2 diabetes mellitus without complications (6) Diabetic neuropathy Code(s): E11.40 - TYPE 2 DIABETES MELLITUS WITH DIABETIC NEUROPATHY, UNSP Status: Chronic Qualifiers: Diabetes mellitus complication detail: diabetic polyneuropathy (7) Hypertension Code(s): I10 - ESSENTIAL (PRIMARY) HYPERTENSION Status: Chronic Qualifiers: Hypertension type: essential hypertension Qualified Code(s): I10 - Essential (primary) hypertension (8) PVD (peripheral vascular disease) Code(s): I73.9 - PERIPHERAL VASCULAR DISEASE, UNSPECIFIED Status: Chronic (9) Protein-calorie malnutrition, moderate Code(s): E44.0 - MODERATE PROTEIN-CALORIE MALNUTRITION Status: Chronic - Plan cont current plan of care, social welfare administrator * medication reviewed as below * symptomatic treatment * wound care * will need SNU placement on discharge * change lisinopril 20 mg po bid * add elavil as per home dose * exercise physiology professor for pain control. Review of Systems - Review of Systems ENT: negative: Ear Pain, Ear Discharge, Nose Pain, Nose Discharge, Nose Congestion, Mouth Pain, Mouth Swelling, Throat Pain, Throat Swelling, Other Respiratory: negative: Cough, Dry, Shortness of Breath, Hemoptysis, SOB with Excertion, Pleuritic Pain, Sputum, Wheezing Cardiovascular: negative: chest pain, palpitations, orthopnea, paroxysmal nocturnal dyspnea, edema, light headedness, other Gastrointestinal: negative: Nausea, Vomiting, Abdominal Pain, Diarrhea, Constipation, Melena, Hematochezia, Other Genitourinary: negative: Dysuria, Frequency, Incontinence, Hematuria, Retention , Other Musculoskeletal: negative: Neck Pain, Shoulder Pain, Arm Pain, Back Pain, Hand Pain, Leg Pain, Foot Pain, Other - Medications/Allergies Allergies/Adverse Reactions: Allergies Allergy/AdvReac Type Severity Reaction Status Date / Time No Known Drug Allergies Allergy Verified 05/13/18 13:16 Medications: Current Medications Hydrocodone Bitart/Acetaminophen ([place] 5/325) 2 tab PO 0500,1100,1700,2300 [facility] Last Admin: 06/06/18 04:00 Dose: 2 tab Amitriptyline HCl (Elavil) 100 mg PO HS [facility] Amlodipine Besylate (Norvasc) 2.5 mg PO DAILY [facility] Last Admin: 06/06/18 08:48 Dose: 2.5 mg Aspirin (Ecotrin) 81 mg PO DAILY [facility] Last Admin: 06/06/18 08:47 Dose: 81 mg Dextrose/Water (Dextrose 50%) 25 gm SLOW IVP PRN PRN PRN Reason: Hypoglycemia Diphenhydramine HCl (Benadryl) 25 mg IVP Q3H PRN PRN Reason: Itching Diphenhydramine HCl (Benadryl) 25 mg PO Q3H PRN PRN Reason: Itching Diphenhydramine HCl (Benadryl) 25 mg IM Q3H PRN PRN Reason: Itching Ezetimibe (Zetia) 5 mg PO HS [facility] Last Admin: 06/05/18 22:49 Dose: Not Given Famotidine (Pepcid) 20 mg PO BID [facility] Last Admin: 06/06/18 08:46 Dose: 20 mg Gabapentin (Neurontin) 100 mg PO BID [facility] Last Admin: 06/06/18 08:47 Dose: 100 mg Glucagon (Glucagon) 1 mg IM PRN PRN PRN Reason: Hypoglycemia Hydralazine HCl (Apresoline) 10 mg SLOW IVP Q4H PRN PRN Reason: SBP Greater Than 180 Hydromorphone HCl (Dilaudid) 0.25 mg SLOW IVP Q15M PRN PRN Reason: Breakthrough Pain Last Admin: 06/05/18 18:44 Dose: 0.25 mg Dextrose/Water (D5w) 1,000 mls @ 0 mls/hr IV .Q0M PRN PRN Reason: Hypoglycemia Fentanyl Citrate 2,000 mcg/ (Sodium Chloride) 100 mls @ 0 mls/hr IV INF PRN PRN Reason: Pain Last Admin: 06/05/18 04:11 Dose: 100 mls Dextrose/Sodium Chloride (D5 1/2 Ns) 1,000 mls @ 100 mls/hr IV .Q10H [facility] Last Admin: 06/06/18 08:49 Dose: Not Given Insulin Human NPH (Humulin N) 10 unit SC DAILY [facility] Last Admin: 06/06/18 08:49 Dose: 10 unit Insulin Human Regular (Humulin R) 0 units SC .MILD SLIDING SCALE PRN PRN Reason: Mild Correctional Scale Last Admin: 06/04/18 06:24 Dose: 2 unit Insulin Human Regular (Humulin R) 0 units SC .BEDTIME SLIDING SC PRN PRN Reason: Bedtime Correctional Scale Last Admin: 05/30/18 21:34 Dose: 2 unit Lisinopril (Zestril) 20 mg PO BID [facility] Last Admin: 06/06/18 08:48 Dose: 20 mg Naloxone HCl (Narcan) 0.2 mg IV Q5MIN PRN PRN Reason: Opiate Reversal Ondansetron HCl (Zofran Odt) 4 mg PO Q6H PRN PRN Reason: Nausea/Vomiting Last Admin: 06/04/18 17:33 Dose: 4 mg Ondansetron HCl (Zofran) 4 mg IVP Q6H PRN PRN Reason: Nausea/Vomiting Last Admin: 06/05/18 17:10 Dose: 4 mg Promethazine HCl (Phenergan) 12.5 mg IM Q4H PRN PRN Reason: Nausea/Vomiting Last Admin: 05/31/18 02:55 Dose: 12.5 mg Saccharomyces Boulardii (Florastor) 250 mg PO QAM [facility] Last Admin: 06/06/18 08:47 Dose: 250 mg Simvastatin (Zocor) 10 mg PO [facility] Last Admin: 06/05/18 22:45 Dose: Not Given Sodium Chloride (Flush - Normal Saline) 10 ml IVF PRN PRN PRN Reason: Saline Flush Sodium Chloride (Flush - Normal Saline) 10 ml IVF PRN PRN PRN Reason: Saline Flush Trazodone HCl (Desyrel) 25 mg PO [facility] Last Admin: 06/05/18 22:46 Dose: Not Given Triamterene/HCTZ (Maxzide-25) [facility] Last Admin: 06/06/18 08:46 Dose: 1 tab Zolpidem Tartrate (Ambien) 5 mg PO HSPRN PRN PRN Reason: Insomnia
[2018-06-06] MEDS: fentaNYL Citrate/PF 2,000 MCG in Sodium Chloride 0.9% 60 ML IV PRN (10:19)
[2018-06-06] MEDS: Simvastatin 20 MG TAB PO SCH (21:01)
[2018-06-06] MEDS: Ezetimibe 10 MG TAB PO SCH (21:02)
[2018-06-06] MEDS: traZODone HCl 50 MG TAB PO SCH (21:04)
[2018-06-06] MEDS: Amitriptyline HCl 100 MG TAB PO SCH (21:04)
[2018-06-07] MEDS: HYDROcodone/Acetaminophen 5/325 mg Tablet PO SCH ×2 (05:49→11:40)
[2018-06-07] MEDS: Ondansetron ODT 4 MG TAB PO PRN (05:54)
[2018-06-07] MEDS: Lisinopril 20 MG TAB PO SCH ×2 (09:47→20:39)
[2018-06-07] MEDS: Triamterene/Hydrochlorothiazide 37.5 mg/25 mg Tablet PO SCH (09:47)
[2018-06-07] MEDS: Saccharomyces boulardii 250 MG CAP PO SCH (09:47)
[2018-06-07] MEDS: Aspirin 81 mg Enteric Coated Tablet PO SCH (09:47)
[2018-06-07] MEDS: Amlodipine 5 MG TAB PO SCH (09:48)
[2018-06-07] MEDS: Famotidine 20 MG TAB PO SCH ×2 (09:48→20:40)
[2018-06-07] MEDS: NPH, Human Insulin Isophane 300 UNIT/3 ML VIAL SC SCH (09:49)
--- NOTE | 2018-06-07 10:12 | PDOC.PN ---
- Subjective Encounter Start Date: 06/07/18 Encounter Start Time: 08:15 this morning pt was sleepy, no pain, family present bedside - Objective Resuscitation Status: Resuscitation Status FULL:Full Resuscitation MAR Reviewed: Yes Vital Signs & Weight: Vital Signs (12 hours) Temp Pulse Resp BP BP Pulse Ox 06/07/18 09:48 84 145/77 H 06/07/18 09:47 145/77 H 06/07/18 04:27 98.7 F 88 15 136/67 94 L 06/07/18 00:35 98.0 F 93 15 144/69 H 95 Weight Admit Weight 96 lb 3.2 oz Weight 96 lb 3.2 oz I&O: 06/06/18 06/07/18 06/08/18 06:59 06:59 06:59 Intake Total 710 1140 Balance 710 1140 Result Diagrams: 06/06/18 04:56 06/06/18 04:56 Additional Labs: Accuchecks 06/07/18 06/07/18 06/06/18 05:12 00:56 20:42 POC Glucose 110 109 105 06/06/18 06/06/18 15:18 11:21 POC Glucose 88 157 H Phys Exam - Physical Examination Constitutional: NAD HEENT: PERRLA, sclera anicteric Neck: no JVD, supple Respiratory: no wheezing, no rales, no rhonchi Cardiovascular: RRR, no significant murmur, no rub Gastrointestinal: soft, no distention, positive bowel sounds right AKA with dressing, unable to review today Lymphatic: no nodes Deviation from normal: unable to review today Skin: no rash, normal turgor Dx/Plan (1) Status post above knee amputation of right lower extremity Code(s): Z89.611 - ACQUIRED ABSENCE OF RIGHT LEG ABOVE KNEE Status: Acute (2) Anemia, normocytic normochromic Code(s): D64.9 - ANEMIA, UNSPECIFIED Status: Chronic (3) Anxiety and depression Code(s): F41.9 - ANXIETY DISORDER, UNSPECIFIED; F32.9 - MAJOR DEPRESSIVE DISORDER, SINGLE EPISODE, UNSPECIFIED Status: Chronic (4) CAD (coronary artery disease) Code(s): I25.10 - ATHSCL HEART DISEASE OF [place] CORONARY ARTERY W/O ANG PCTRS Status: Chronic Qualifiers: Coronary Disease-Associated Artery/Lesion type: [place] artery [place] vs. transplanted heart: [place] heart Associated angina: without angina Qualified Code(s): I25.10 - Atherosclerotic heart disease of [place] coronary artery without angina pectoris (5) Diabetes type 2, controlled Code(s): E11.9 - TYPE 2 DIABETES MELLITUS WITHOUT COMPLICATIONS Status: Chronic Qualifiers: Diabetes mellitus superintendent terminal insulin use: without superintendent terminal use Diabetes mellitus complication status: without complication Qualified Code(s): E11.9 - Type 2 diabetes mellitus without complications (6) Diabetic neuropathy Code(s): E11.40 - TYPE 2 DIABETES MELLITUS WITH DIABETIC NEUROPATHY, UNSP Status: Chronic Qualifiers: Diabetes mellitus complication detail: diabetic polyneuropathy (7) Hypertension Code(s): I10 - ESSENTIAL (PRIMARY) HYPERTENSION Status: Chronic Qualifiers: Hypertension type: essential hypertension Qualified Code(s): I10 - Essential (primary) hypertension (8) PVD (peripheral vascular disease) Code(s): I73.9 - PERIPHERAL VASCULAR DISEASE, UNSPECIFIED Status: Chronic (9) Protein-calorie malnutrition, moderate Code(s): E44.0 - MODERATE PROTEIN-CALORIE MALNUTRITION Status: Chronic - Plan cont current plan of care, plan discussed w/ family * will dc gabapentin, trazodone for now * continue amitryptillin * medication reviewed as below * symptomatic treatment * dietary consult to modify diet * discussed with family * eventual placement to rehab vs snu. Review of Systems - Review of Systems Other: unable to review due to sleepiness today - Medications/Allergies Allergies/Adverse Reactions: Allergies Allergy/AdvReac Type Severity Reaction Status Date / Time No Known Drug Allergies Allergy Verified 05/13/18 13:16 Medications: Current Medications Hydrocodone Bitart/Acetaminophen ([place] 5/325) 2 tab PO 0500,1100,1700,2300 [facility] Last Admin: 06/07/18 05:49 Dose: 2 tab Amitriptyline HCl (Elavil) 100 mg PO HS [facility] Last Admin: 06/06/18 21:04 Dose: 100 mg Amlodipine Besylate (Norvasc) 2.5 mg PO DAILY [facility] Last Admin: 06/07/18 09:48 Dose: 2.5 mg Aspirin (Ecotrin) 81 mg PO DAILY [facility] Last Admin: 06/07/18 09:47 Dose: 81 mg Dextrose/Water (Dextrose 50%) 25 gm SLOW IVP PRN PRN PRN Reason: Hypoglycemia Diphenhydramine HCl (Benadryl) 25 mg IVP Q3H PRN PRN Reason: Itching Diphenhydramine HCl (Benadryl) 25 mg PO Q3H PRN PRN Reason: Itching Diphenhydramine HCl (Benadryl) 25 mg IM Q3H PRN PRN Reason: Itching Ezetimibe (Zetia) 5 mg PO HS [facility] Last Admin: 06/06/18 21:02 Dose: 5 mg Famotidine (Pepcid) 20 mg PO BID [facility] Last Admin: 06/07/18 09:48 Dose: 20 mg Glucagon (Glucagon) 1 mg IM PRN PRN PRN Reason: Hypoglycemia Hydralazine HCl (Apresoline) 10 mg SLOW IVP Q4H PRN PRN Reason: SBP Greater Than 180 Hydromorphone HCl (Dilaudid) 0.25 mg SLOW IVP Q15M PRN PRN Reason: Breakthrough Pain Last Admin: 06/05/18 18:44 Dose: 0.25 mg Dextrose/Water (D5w) 1,000 mls @ 0 mls/hr IV .Q0M PRN PRN Reason: Hypoglycemia Fentanyl Citrate 2,000 mcg/ (Sodium Chloride) 100 mls @ 0 mls/hr IV INF PRN PRN Reason: Pain Last Admin: 06/06/18 10:19 Dose: 100 mls Insulin Human NPH (Humulin N) 10 unit SC DAILY [facility] Last Admin: 06/07/18 09:49 Dose: 10 unit Insulin Human Regular (Humulin R) 0 units SC .MILD SLIDING SCALE PRN PRN Reason: Mild Correctional Scale Last Admin: 06/04/18 06:24 Dose: 2 unit Insulin Human Regular (Humulin R) 0 units SC .BEDTIME SLIDING SC PRN PRN Reason: Bedtime Correctional Scale Last Admin: 05/30/18 21:34 Dose: 2 unit Lisinopril (Zestril) 20 mg PO BID [facility] Last Admin: 06/07/18 09:47 Dose: 20 mg Naloxone HCl (Narcan) 0.2 mg IV Q5MIN PRN PRN Reason: Opiate Reversal Ondansetron HCl (Zofran Odt) 4 mg PO Q6H PRN PRN Reason: Nausea/Vomiting Last Admin: 06/07/18 05:54 Dose: 4 mg Ondansetron HCl (Zofran) 4 mg IVP Q6H PRN PRN Reason: Nausea/Vomiting Last Admin: 06/05/18 17:10 Dose: 4 mg Promethazine HCl (Phenergan) 12.5 mg IM Q4H PRN PRN Reason: Nausea/Vomiting Last Admin: 05/31/18 02:55 Dose: 12.5 mg Saccharomyces Boulardii (Florastor) 250 mg PO [facility] Last Admin: 06/07/18 09:47 Dose: 250 mg Simvastatin (Zocor) 10 mg PO [facility] Last Admin: 06/06/18 21:01 Dose: 10 mg Sodium Chloride (Flush - Normal Saline) 10 ml IVF PRN PRN PRN Reason: Saline Flush Sodium Chloride (Flush - Normal Saline) 10 ml IVF PRN PRN PRN Reason: Saline Flush Triamterene/HCTZ (Maxzide-25) 1 tab PO [facility] Last Admin: 06/07/18 09:47 Dose: 1 tab Zolpidem Tartrate (Ambien) 5 mg PO HSPRN PRN PRN Reason: Insomnia
[2018-06-07] MEDS ORDERED: Fentanyl 100 MCG/2 ML VIAL SLOW IVP PRN (11:32)
[2018-06-07] MEDS: HYDROcodone/Acetaminophen 5/325 mg Tablet PO PRN (12:20)
[2018-06-07] MEDS: fentaNYL Citrate/PF 2,000 MCG in Sodium Chloride 0.9% 60 ML IV PRN (20:32)
[2018-06-07] MEDS: Ezetimibe 10 MG TAB PO SCH (20:39)
[2018-06-07] MEDS: Simvastatin 20 MG TAB PO SCH (20:40)
[2018-06-07] MEDS: Amitriptyline HCl 100 MG TAB PO SCH (20:42)
[2018-06-07] MEDS: Insulin Regular 300 UNITS/3 ML VIAL SC PRN (22:21)
[2018-06-08] MEDS: HYDROcodone/Acetaminophen 5/325 mg Tablet PO PRN (03:33)
[2018-06-08] MEDS: Insulin Regular 300 UNITS/3 ML VIAL SC PRN ×2 (06:30→17:47)
[2018-06-08] MEDS: Amlodipine 5 MG TAB PO SCH (09:26)
[2018-06-08] MEDS: Aspirin 81 mg Enteric Coated Tablet PO SCH (09:26)
[2018-06-08] MEDS: Lisinopril 20 MG TAB PO SCH ×2 (09:26→19:56)
[2018-06-08] MEDS: Saccharomyces boulardii 250 MG CAP PO SCH (09:26)
[2018-06-08] MEDS: Triamterene/Hydrochlorothiazide 37.5 mg/25 mg Tablet PO SCH (09:26)
[2018-06-08] MEDS: Famotidine 20 MG TAB PO SCH ×2 (09:27→19:57)
[2018-06-08] MEDS: NPH, Human Insulin Isophane 300 UNIT/3 ML VIAL SC SCH (09:29)
--- NOTE | 2018-06-08 10:13 | PDOC.PN ---
- Subjective Encounter Start Date: 06/08/18 Encounter Start Time: 08:20 Patient seen and examined. No new complaints. No overnight events - Objective Resuscitation Status: Resuscitation Status FULL:Full Resuscitation MAR Reviewed: Yes Vital Signs & Weight: Vital Signs (12 hours) Temp Pulse Resp BP BP BP Pulse Ox 06/08/18 09:26 87 119/60 06/08/18 08:00 94 L 06/08/18 07:07 98.2 F 87 16 119/60 94 L 06/08/18 04:00 99 F 95 19 120/56 L 94 L 06/08/18 01:01 98.8 F 87 16 133/70 96 Weight Admit Weight 96 lb 3.2 oz Weight 96 lb 3.2 oz I&O: 06/07/18 06/08/18 06/09/18 06:59 06:59 06:59 Intake Total 1140 1400 Balance 1140 1400 Result Diagrams: 06/06/18 04:56 06/06/18 04:56 Additional Labs: Accuchecks 06/08/18 06/07/18 06/07/18 06:19 20:51 15:13 POC Glucose 176 H 217 H 147 H 06/07/18 11:29 POC Glucose 96 Phys Exam - Physical Examination Constitutional: NAD HEENT: PERRLA, moist MMs, sclera anicteric Neck: no JVD, supple Respiratory: no wheezing, no rales, no rhonchi Cardiovascular: RRR, no significant murmur, no rub Gastrointestinal: soft, non-tender, no distention, positive bowel sounds right AKA Neurological: non-focal, normal sensation Psychiatric: normal affect, A&O x 3 Skin: no rash, normal turgor Dx/Plan (1) Status post above knee amputation of right lower extremity Code(s): Z89.611 - ACQUIRED ABSENCE OF RIGHT LEG ABOVE KNEE Status: Acute (2) Anemia, normocytic normochromic Code(s): D64.9 - ANEMIA, UNSPECIFIED Status: Chronic (3) Anxiety and depression Code(s): F41.9 - ANXIETY DISORDER, UNSPECIFIED; F32.9 - MAJOR DEPRESSIVE DISORDER, SINGLE EPISODE, UNSPECIFIED Status: Chronic (4) CAD (coronary artery disease) Code(s): I25.10 - ATHSCL HEART DISEASE OF [place] CORONARY ARTERY W/O ANG PCTRS Status: Chronic Qualifiers: Coronary Disease-Associated Artery/Lesion type: [place] artery [place] vs. transplanted heart: [place] heart Associated angina: without angina Qualified Code(s): I25.10 - Atherosclerotic heart disease of [place] coronary artery without angina pectoris (5) Diabetes type 2, controlled Code(s): E11.9 - TYPE 2 DIABETES MELLITUS WITHOUT COMPLICATIONS Status: Chronic Qualifiers: Diabetes mellitus exterminator insulin use: without exterminator use Diabetes mellitus complication status: without complication Qualified Code(s): E11.9 - Type 2 diabetes mellitus without complications (6) Diabetic neuropathy Code(s): E11.40 - TYPE 2 DIABETES MELLITUS WITH DIABETIC NEUROPATHY, UNSP Status: Chronic Qualifiers: Diabetes mellitus complication detail: diabetic polyneuropathy (7) Hypertension Code(s): I10 - ESSENTIAL (PRIMARY) HYPERTENSION Status: Chronic Qualifiers: Hypertension type: essential hypertension Qualified Code(s): I10 - Essential (primary) hypertension (8) PVD (peripheral vascular disease) Code(s): I73.9 - PERIPHERAL VASCULAR DISEASE, UNSPECIFIED Status: Chronic (9) Protein-calorie malnutrition, moderate Code(s): E44.0 - MODERATE PROTEIN-CALORIE MALNUTRITION Status: Chronic - Plan cont current plan of care, plan discussed w/ family, PT/OT, home health care social worker * stable and improving * will need snu * discussed with family * medication reviewed as below * symptomatic treatment. Review of Systems - Review of Systems ENT: negative: Ear Pain, Ear Discharge, Nose Pain, Nose Discharge, Nose Congestion, Mouth Pain, Mouth Swelling, Throat Pain, Throat Swelling, Other Respiratory: negative: Cough, Dry, Shortness of Breath, Hemoptysis, SOB with Excertion, Pleuritic Pain, Sputum, Wheezing Cardiovascular: negative: chest pain, palpitations, orthopnea, paroxysmal nocturnal dyspnea, edema, light headedness, other Gastrointestinal: negative: Nausea, Vomiting, Abdominal Pain, Diarrhea, Constipation, Melena, Hematochezia, Other Genitourinary: negative: Dysuria, Frequency, Incontinence, Hematuria, Retention , Other Musculoskeletal: negative: Neck Pain, Shoulder Pain, Arm Pain, Back Pain, Hand Pain, Leg Pain, Foot Pain, Other - Medications/Allergies Allergies/Adverse Reactions: Allergies Allergy/AdvReac Type Severity Reaction Status Date / Time No Known Drug Allergies Allergy Verified 05/13/18 13:16 Medications: Current Medications Hydrocodone Bitart/Acetaminophen ([place] 5/325) 1 tab PO Q4H PRN PRN Reason: Pain 2-5 Last Admin: 06/07/18 12:20 Dose: 1 tab Hydrocodone Bitart/Acetaminophen ([place] 5/325) 2 tab PO Q4H PRN PRN Reason: Pain 6-10 Last Admin: 06/08/18 03:33 Dose: 2 tab Amitriptyline HCl (Elavil) 100 mg PO HS [facility] Last Admin: 06/07/18 20:42 Dose: Not Given Amlodipine Besylate (Norvasc) 2.5 mg PO DAILY [facility] Last Admin: 06/08/18 09:26 Dose: 2.5 mg Aspirin (Ecotrin) 81 mg PO DAILY [facility] Last Admin: 06/08/18 09:26 Dose: 81 mg Dextrose/Water (Dextrose 50%) 25 gm SLOW IVP PRN PRN PRN Reason: Hypoglycemia Diphenhydramine HCl (Benadryl) 25 mg IVP Q3H PRN PRN Reason: Itching Diphenhydramine HCl (Benadryl) 25 mg PO Q3H PRN PRN Reason: Itching Diphenhydramine HCl (Benadryl) 25 mg IM Q3H PRN PRN Reason: Itching Ezetimibe (Zetia) 5 mg PO HS [facility] Last Admin: 06/07/18 20:39 Dose: 5 mg Famotidine (Pepcid) 20 mg PO BID [facility] Last Admin: 06/08/18 09:27 Dose: 20 mg Fentanyl (Sublimaze) 50 mcg SLOW IVP Q1H PRN PRN Reason: .BREAKTHROUGH PAIN Glucagon (Glucagon) 1 mg IM PRN PRN PRN Reason: Hypoglycemia Hydralazine HCl (Apresoline) 10 mg SLOW IVP Q4H PRN PRN Reason: SBP Greater Than 180 Hydromorphone HCl (Dilaudid) 0.25 mg SLOW IVP Q15M PRN PRN Reason: Breakthrough Pain Last Admin: 06/05/18 18:44 Dose: 0.25 mg Dextrose/Water (D5w) 1,000 mls @ 0 mls/hr IV .Q0M PRN PRN Reason: Hypoglycemia Fentanyl Citrate 2,000 mcg/ (Sodium Chloride) 100 mls @ 0 mls/hr IV INF PRN PRN Reason: Pain Last Admin: 06/07/18 20:32 Dose: 100 mls Insulin Human NPH (Humulin N) 10 unit SC DAILY [facility] Last Admin: 06/08/18 09:29 Dose: 10 unit Insulin Human Regular (Humulin R) 0 units SC .MILD SLIDING SCALE PRN PRN Reason: Mild Correctional Scale Last Admin: 06/08/18 06:30 Dose: 2 unit Insulin Human Regular (Humulin R) 0 units SC .BEDTIME SLIDING SC PRN PRN Reason: Bedtime Correctional Scale Last Admin: 06/07/18 22:21 Dose: 2 unit Lisinopril (Zestril) 20 mg PO BID [facility] Last Admin: 06/08/18 09:26 Dose: 20 mg Naloxone HCl (Narcan) 0.2 mg IV Q5MIN PRN PRN Reason: Opiate Reversal Ondansetron HCl (Zofran Odt) 4 mg PO Q6H PRN PRN Reason: Nausea/Vomiting Last Admin: 06/07/18 05:54 Dose: 4 mg Ondansetron HCl (Zofran) 4 mg IVP Q6H PRN PRN Reason: Nausea/Vomiting Last Admin: 06/05/18 17:10 Dose: 4 mg Promethazine HCl (Phenergan) 12.5 mg IM Q4H PRN PRN Reason: Nausea/Vomiting Last Admin: 05/31/18 02:55 Dose: 12.5 mg Saccharomyces Boulardii (Florastor) 250 mg PO QAM [facility] Last Admin: 06/08/18 09:26 Dose: 250 mg Simvastatin (Zocor) 10 mg PO HS [facility] Last Admin: 06/07/18 20:40 Dose: 10 mg Sodium Chloride (Flush - Normal Saline) 10 ml IVF PRN PRN PRN Reason: Saline Flush Sodium Chloride (Flush - Normal Saline) 10 ml IVF PRN PRN PRN Reason: Saline Flush [facility]amterene/HCTZ ([facility]zide-25) [facility] Last Admin: 06/08/18 09:26 Dose: 1 tab Zolpidem Tartrate (Ambien) 5 mg PO HSPRN PRN PRN Reason: Insomnia
--- NOTE | 2018-06-08 10:18 | OP ---
DATE OF PROCEDURE: 05/29/2018 PREOPERATIVE DIAGNOSIS: Right anterior knee wound dehiscence with necrotic superior pole patella and patellar tendon, right. POSTOPERATIVE DIAGNOSIS: Right anterior knee wound dehiscence with necrotic superior pole patella an d patellar tendon, right. SURGICAL PROCEDURES: 1. Irrigation and debridement with sharp excision of skin, subcutaneous tissue, fat, tendon, and bon e, right knee. 2. Application of wound VAC, right knee. ANESTHESIA: General. SURGEON: Rodney Echevarria M.D. TOURNIQUET TIME: Zero. ESTIMATED BLOOD LOSS: 50 mL. DRAINS: Wound VAC x 1. SPECIMEN: None. IMPLANTS: None. OUTCOME: Fat coverage of femoral condyle is anteriorly following wound closure. INDICATIONS: Ms. Kumar is a 67-year-old lady status post severely comminuted and displaced patellar fracture treated with partial inferior pole patellectomy and advancement and repair of patellar tendo n. Unfortunately, the patient has gone on to a severe anterior skin wound dehiscence and is now stat us post debridement with irrigation and application of wound VAC. The patient presented earlier to t he office and on repeat inspection of her wound, it was found to have a necrotic patellar tendon and a failed repair with exposed femoral condyle. As such, the patient is taken back to the operating ro om for repeat irrigation and debridement. Informed consent has been obtained. I believe all questio ns answered. DESCRIPTION OF PROCEDURE: The patient was brought to the operating room and a timeout performed foll owed by induction of general anesthesia. Next, the wound was inspected. The patellar tendon was fou nd to have a leathery type feel to it with no bleeding from this. The repair had failed and the supe rior pole of the patella was riding high and patella halt type alignment with now exposed femoral con dyle. Next, sharp debridement was performed first starting at the skin edges debriding some further necrosis of the skin. This dissection was then carried down sharply through a portion of the prepate llar fat pad. The patellar tendon was sharply excised, exposing a more viable and vascular appearing prepatellar fat pad. The patella fragment was also sharply excised from the quadriceps tendon. Onc e all necrotic tissue was debrided, the femoral condyles were clearly visible in the wound. Preopera tively, I had an extensive discussion with family regarding amputation versus perhaps an attempt at a medial gastroc rotational flap for coverage. Given the family's desires, we proceeded with an advan cement of the prepatellar fat pad to the quadriceps tendon just in hopes of providing some soft tissu e coverage of the distal femur while awaiting plastic surgery consultation. Once this was advanced a nd held in place with some simple nylon sutures, the wound care team was brought back to the operatin g room and a new wound VAC was applied to the knee. The patient was then transferred to [facility] in stable condition. There were no complications. Patient tolerated the procedure well. We will obtain a Plastic Surgery consultation at the beginning of next week for discussion about the appropri ateness of rotational flap coverage versus proceeding with amputation.
[2018-06-08] MEDS: Ezetimibe 10 MG TAB PO SCH (19:57)
[2018-06-08] MEDS: Amitriptyline HCl 100 MG TAB PO SCH (19:57)
[2018-06-08] MEDS: Simvastatin 20 MG TAB PO SCH (19:57)
[2018-06-09 07:53] LABS: Anion Gap 7 mmol/L (10-20); BUN (Urea Nitrogen) 12 mg/dL (9.8-20.1); Calc. Creatinine Clearance 70 mL/min (70-130); Calcium 7.7 mg/dL (7.8-10.44); Carbon Dioxide 30 mmol/L (23-31); Chloride 106 mmol/L (98-107); Estimated GFR-MDRD Greater than 90; Glucose 134 mg/dL (80-115); Potassium 3.8 mmol/L (3.5-5.1); Sodium 139 mmol/L (136-145)
[2018-06-09 08:28] LABS: #Basophils 0.1 thou/uL (0.0-0.2); #Eosinphils 0.7 thou/uL (0.0-0.7); #Lymphocytes 2.9 thou/uL (1.20-3.40); #Monocytes 0.6 thou/uL (0.11-0.59); #Neutrophils 4.2 thou/uL (1.40-6.50); %Basophils 0.7 % (0.0-1.0); %Eosinophils 7.9 % (0.0-10.0); %Lymphocytes 34.6 % (21.0-51.0); %Monocytes 6.9 % (0.0-10.0); Hemoglobin 8.2 g/dL (12.0-16.0); Mean Corpuscular HGB CONC 32.9 g/dL (32.0-36.0); Mean Corpuscular Hemoglobin 30.7 pg (27.0-31.0); Mean Corpuscular Volume 93.3 fL (78.0-98.0); Mean Platelet Volume 5.7 fL (7.4-10.4); Platelet Count 954 thou/uL (130-400); RBC Distribution Width 13.1 % (11.5-14.5); Red Blood Cell (RBC) Count 2.68 mill/uL (4.20-5.40); White Blood Cell (WBC) Count 8.4 thou/uL (4.8-10.8)
--- NOTE | 2018-06-09 08:58 | PDOC.PN ---
- Subjective Encounter Start Date: 06/09/18 Encounter Start Time: 08:10 Patient seen and examined. No new complaints. No overnight events - Objective Resuscitation Status: Resuscitation Status FULL:Full Resuscitation MAR Reviewed: Yes Vital Signs & Weight: Vital Signs (12 hours) Temp Pulse Resp BP Pulse Ox 06/09/18 07:40 98.7 F 85 12 170/75 H 95 06/09/18 04:37 98.7 F 87 18 158/76 H 98 06/09/18 00:48 98.1 F 90 18 164/73 H 95 Weight Admit Weight 96 lb 3.2 oz Weight 96 lb 3.2 oz I&O: 06/08/18 06/09/18 06/10/18 06:59 06:59 06:59 Intake Total 1400 Balance 1400 Result Diagrams: 06/09/18 07:18 06/09/18 07:18 Additional Labs: Accuchecks 06/09/18 06/08/18 06/08/18 06:06 21:02 15:55 POC Glucose 134 H 105 246 H Phys Exam - Physical Examination Constitutional: NAD HEENT: PERRLA, moist MMs, sclera anicteric Neck: no JVD, supple Respiratory: no wheezing, no rales, no rhonchi Cardiovascular: RRR, no significant murmur, no rub Gastrointestinal: soft, non-tender, no distention, positive bowel sounds right AKA Neurological: non-focal, normal sensation, moves all 4 limbs Lymphatic: no nodes Psychiatric: normal affect Skin: no rash, normal turgor Dx/Plan (1) Status post above knee amputation of right lower extremity Code(s): Z89.611 - ACQUIRED ABSENCE OF RIGHT LEG ABOVE KNEE Status: Acute (2) Anemia, normocytic normochromic Code(s): D64.9 - ANEMIA, UNSPECIFIED Status: Chronic (3) Anxiety and depression Code(s): F41.9 - ANXIETY DISORDER, UNSPECIFIED; F32.9 - MAJOR DEPRESSIVE DISORDER, SINGLE EPISODE, UNSPECIFIED Status: Chronic (4) CAD (coronary artery disease) Code(s): I25.10 - ATHSCL HEART DISEASE OF [place] CORONARY ARTERY W/O ANG PCTRS Status: Chronic Qualifiers: Coronary Disease-Associated Artery/Lesion type: [place] artery [place] vs. transplanted heart: [place] heart Associated angina: without angina Qualified Code(s): I25.10 - Atherosclerotic heart disease of [place] coronary artery without angina pectoris (5) Diabetes type 2, controlled Code(s): E11.9 - TYPE 2 DIABETES MELLITUS WITHOUT COMPLICATIONS Status: Chronic Qualifiers: Diabetes mellitus equipment operator inter[employer] insulin use: without mcfp use Diabetes mellitus complication status: without complication Qualified Code(s): E11.9 - Type 2 diabetes mellitus without complications (6) Diabetic neuropathy Code(s): E11.40 - TYPE 2 DIABETES MELLITUS WITH DIABETIC NEUROPATHY, UNSP Status: Chronic Qualifiers: Diabetes mellitus complication detail: diabetic polyneuropathy (7) Hypertension Code(s): I10 - ESSENTIAL (PRIMARY) HYPERTENSION Status: Chronic Qualifiers: Hypertension type: essential hypertension Qualified Code(s): I10 - Essential (primary) hypertension (8) PVD (peripheral vascular disease) Code(s): I73.9 - PERIPHERAL VASCULAR DISEASE, UNSPECIFIED Status: Chronic (9) Protein-calorie malnutrition, moderate Code(s): E44.0 - MODERATE PROTEIN-CALORIE MALNUTRITION Status: Chronic - Plan cont current plan of care, PT/OT, pediatric social worker * paper work for discharge done * medication reviewed as below * symptomatic treatment * snu vs rehab arrangement pending * overall stable and improving. Review of Systems - Review of Systems ENT: negative: Ear Pain, Ear Discharge, Nose Pain, Nose Discharge, Nose Congestion, Mouth Pain, Mouth Swelling, Throat Pain, Throat Swelling, Other Respiratory: negative: Cough, Dry, Shortness of Breath, Hemoptysis, SOB with Excertion, Pleuritic Pain, Sputum, Wheezing Cardiovascular: negative: chest pain, palpitations, orthopnea, paroxysmal nocturnal dyspnea, edema, light headedness, other Gastrointestinal: negative: Nausea, Vomiting, Abdominal Pain, Diarrhea, Constipation, Melena, Hematochezia, Other Genitourinary: negative: Dysuria, Frequency, Incontinence, Hematuria, Retention , Other Musculoskeletal: negative: Neck Pain, Shoulder Pain, Arm Pain, Back Pain, Hand Pain, Leg Pain, Foot Pain, Other Skin: negative: Rash, Lesions, Aureliano, Bruising, Other - Medications/Allergies Allergies/Adverse Reactions: Allergies Allergy/AdvReac Type Severity Reaction Status Date / Time No Known Drug Allergies Allergy Verified 05/13/18 13:16 Medications: Current Medications Hydrocodone Bitart/Acetaminophen ([place] 5/325) 1 tab PO Q4H PRN PRN Reason: Pain 2-5 Last Admin: 06/07/18 12:20 Dose: 1 tab Hydrocodone Bitart/Acetaminophen ([place] 5/325) 2 tab PO Q4H PRN PRN Reason: Pain 6-10 Last Admin: 06/08/18 03:33 Dose: 2 tab Amitriptyline HCl (Elavil) 100 mg PO HS [facility] Last Admin: 06/08/18 19:57 Dose: 100 mg Amlodipine Besylate (Norvasc) 2.5 mg PO DAILY [facility] Last Admin: 06/08/18 09:26 Dose: 2.5 mg Aspirin (Ecotrin) 81 mg PO DAILY [facility] Last Admin: 06/08/18 09:26 Dose: 81 mg Dextrose/Water (Dextrose 50%) 25 gm SLOW IVP PRN PRN PRN Reason: Hypoglycemia Diphenhydramine HCl (Benadryl) 25 mg IVP Q3H PRN PRN Reason: Itching Diphenhydramine HCl (Benadryl) 25 mg PO Q3H PRN PRN Reason: Itching Diphenhydramine HCl (Benadryl) 25 mg IM Q3H PRN PRN Reason: Itching Ezetimibe (Zetia) 5 mg PO HS [facility] Last Admin: 06/08/18 19:57 Dose: 5 mg Famotidine (Pepcid) 20 mg PO BID [facility] Last Admin: 06/08/18 19:57 Dose: 20 mg Fentanyl (Sublimaze) 50 mcg SLOW IVP Q1H PRN PRN Reason: .BREAKTHROUGH PAIN Glucagon (Glucagon) 1 mg IM PRN PRN PRN Reason: Hypoglycemia Hydralazine HCl (Apresoline) 10 mg SLOW IVP Q4H PRN PRN Reason: SBP Greater Than 180 Hydromorphone HCl (Dilaudid) 0.25 mg SLOW IVP Q15M PRN PRN Reason: Breakthrough Pain Last Admin: 06/05/18 18:44 Dose: 0.25 mg Dextrose/Water (D5w) 1,000 mls @ 0 mls/hr IV .Q0M PRN PRN Reason: Hypoglycemia Fentanyl Citrate 2,000 mcg/ (Sodium Chloride) 100 mls @ 0 mls/hr IV INF PRN PRN Reason: Pain Last Admin: 06/07/18 20:32 Dose: 100 mls Insulin Human NPH (Humulin N) 10 unit SC DAILY [facility] Last Admin: 06/08/18 09:29 Dose: 10 unit Insulin Human Regular (Humulin R) 0 units SC .MILD SLIDING SCALE PRN PRN Reason: Mild Correctional Scale Last Admin: 06/08/18 17:47 Dose: 3 unit Insulin Human Regular (Humulin R) 0 units SC .BEDTIME SLIDING SC PRN PRN Reason: Bedtime Correctional Scale Last Admin: 06/07/18 22:21 Dose: 2 unit Lisinopril (Zestril) 20 mg PO BID [facility] Last Admin: 06/08/18 19:56 Dose: 20 mg Ondansetron HCl (Zofran Odt) 4 mg PO Q6H PRN PRN Reason: Nausea/Vomiting Last Admin: 06/07/18 05:54 Dose: 4 mg Ondansetron HCl (Zofran) 4 mg IVP Q6H PRN PRN Reason: Nausea/Vomiting Last Admin: 06/05/18 17:10 Dose: 4 mg Promethazine HCl (Phenergan) 12.5 mg IM Q4H PRN PRN Reason: Nausea/Vomiting Last Admin: 05/31/18 02:55 Dose: 12.5 mg Saccharomyces Boulardii ([facility]astor) [facility] Last Admin: 06/08/18 09:26 Dose: 250 mg Simvastatin (Zocor) 10 mg PO HS [facility] Last Admin: 06/08/18 19:57 Dose: 10 mg Sodium Chloride (Flush - Normal Saline) 10 ml IVF PRN PRN PRN Reason: Saline Flush Sodium Chloride (Flush - Normal Saline) 10 ml IVF PRN PRN PRN Reason: Saline Flush Triamterene/HCTZ (Maxzide-25) 1 tab PO QAM [facility] Last Admin: 06/08/18 09:26 Dose: 1 tab Zolpidem Tartrate (Ambien) 5 mg PO HSPRN PRN PRN Reason: Insomnia
[2018-06-09] MEDS: Saccharomyces boulardii 250 MG CAP PO SCH (09:06)
[2018-06-09] MEDS: Triamterene/Hydrochlorothiazide 37.5 mg/25 mg Tablet PO SCH (09:06)
[2018-06-09] MEDS: Lisinopril 20 MG TAB PO SCH ×2 (09:06→20:28)
[2018-06-09] MEDS: Aspirin 81 mg Enteric Coated Tablet PO SCH (09:06)
[2018-06-09] MEDS: Famotidine 20 MG TAB PO SCH ×2 (09:07→20:29)
[2018-06-09] MEDS: Amlodipine 5 MG TAB PO SCH (09:07)
[2018-06-09] MEDS: NPH, Human Insulin Isophane 300 UNIT/3 ML VIAL SC SCH (09:07)
[2018-06-09] MEDS: fentaNYL Citrate/PF 2,000 MCG in Sodium Chloride 0.9% 60 ML IV PRN (15:08)
[2018-06-09] MEDS: Insulin Regular 300 UNITS/3 ML VIAL SC PRN (18:39)
[2018-06-09] MEDS: Amitriptyline HCl 100 MG TAB PO SCH (20:28)
[2018-06-09] MEDS: Ezetimibe 10 MG TAB PO SCH (20:29)
[2018-06-09] MEDS: Simvastatin 20 MG TAB PO SCH (20:30)
[2018-06-09] MEDS: HYDROcodone/Acetaminophen 5/325 mg Tablet PO PRN (22:54)
[2018-06-10] MEDS: Saccharomyces boulardii 250 MG CAP PO SCH (08:16)
[2018-06-10] MEDS: Aspirin 81 mg Enteric Coated Tablet PO SCH (08:16)
[2018-06-10] MEDS: Lisinopril 20 MG TAB PO SCH ×2 (08:16→19:57)
[2018-06-10] MEDS: Famotidine 20 MG TAB PO SCH ×2 (08:17→19:59)
[2018-06-10] MEDS: Triamterene/Hydrochlorothiazide 37.5 mg/25 mg Tablet PO SCH (08:17)
[2018-06-10] MEDS: Amlodipine 5 MG TAB PO SCH (08:17)
[2018-06-10] MEDS: NPH, Human Insulin Isophane 300 UNIT/3 ML VIAL SC SCH (08:19)
[2018-06-10] MEDS ORDERED: Promethazine HCl 25 MG/ML VIAL IM PRN (12:55)
[2018-06-10] MEDS ORDERED: Promethazine HCl 25 MG in Sodium Chloride 0.9% 50 ML IVPB PRN (13:44)
[2018-06-10] MEDS: Insulin Regular 300 UNITS/3 ML VIAL SC PRN (16:42)
[2018-06-10] MEDS: HYDROcodone/Acetaminophen 5/325 mg Tablet PO PRN ×2 (17:33→22:01)
[2018-06-10] MEDS: Ezetimibe 10 MG TAB PO SCH (19:57)
[2018-06-10] MEDS: Amitriptyline HCl 100 MG TAB PO SCH (19:57)
[2018-06-10] MEDS: Simvastatin 20 MG TAB PO SCH (19:58)
--- NOTE | 2018-06-10 23:02 | PDOC.PN ---
- Subjective Encounter Start Date: 06/10/18 Encounter Start Time: 12:00 Patient seen and examined for med mngt. Pain controlled. No new complaints. No overnight events - Objective Resuscitation Status: Resuscitation Status FULL:Full Resuscitation MAR Reviewed: Yes Vital Signs & Weight: Vital Signs (12 hours) Temp Pulse Resp BP BP BP Pulse Ox 06/10/18 20:00 98.4 F 88 16 158/70 H 95 06/10/18 19:57 158/70 H 06/10/18 16:00 98.5 F 99 20 161/86 H 100 06/10/18 11:50 98.1 F 89 20 144/64 H 94 L Weight Admit Weight 96 lb 3.2 oz Weight 96 lb 3.2 oz I&O: 06/09/18 06/10/18 06/11/18 06:59 06:59 06:59 Intake Total 1560 1310 Balance 1560 1310 Result Diagrams: 06/09/18 07:18 06/09/18 07:18 Additional Labs: Accuchecks 06/10/18 06/10/18 06/10/18 16:14 11:16 05:23 POC Glucose 200 H 141 H 179 H Phys Exam - Physical Examination Constitutional: NAD Respiratory: no wheezing, no rhonchi Cardiovascular: RRR, no rub Gastrointestinal: soft, non-tender, positive bowel sounds Musculoskeletal: no edema Neurological: moves all 4 limbs Dx/Plan - Plan DVT proph w/SCDs IMPRESSION/PLAN: 1. DM2 Cont 10 units of NPH with sliding scale 2. HTN Cont Amlodipine/Lisinopril. Maxzide on hold 3. Hyponatremia/Hypomagnesemia Check AM labs 4. Anemia - s/p 1 unit PRBC this admission 5. CAD s/p stents Cont ASA 6. Anxiety and Depression/ CKD 2 / Moderate PEM Review of Systems - Review of Systems Respiratory: negative: Cough, Dry, Shortness of Breath, Hemoptysis, SOB with Excertion, Pleuritic Pain, Sputum, Wheezing Cardiovascular: negative: chest pain, palpitations, orthopnea, paroxysmal nocturnal dyspnea, edema, light headedness, other - Medications/Allergies Allergies/Adverse Reactions: Allergies Allergy/AdvReac Type Severity Reaction Status Date / Time No Known Drug Allergies Allergy Verified 05/13/18 13:16 Medications: Current Medications Hydrocodone Bitart/Acetaminophen ([place] 5/325) 1 tab PO Q4H PRN PRN Reason: Pain 2-5 Last Admin: 06/10/18 22:01 Dose: 1 tab Hydrocodone Bitart/Acetaminophen ([place] 5/325) 2 tab PO Q4H PRN PRN Reason: Pain 6-10 Last Admin: 06/09/18 22:54 Dose: 2 tab Amitriptyline HCl (Elavil) 100 mg PO HS [facility] Last Admin: 06/10/18 19:57 Dose: 100 mg Amlodipine Besylate (Norvasc) 2.5 mg PO DAILY [facility] Last Admin: 06/10/18 08:17 Dose: 2.5 mg Aspirin (Ecotrin) 81 mg PO DAILY [facility] Last Admin: 06/10/18 08:16 Dose: 81 mg Dextrose/Water (Dextrose 50%) 25 gm SLOW IVP PRN PRN PRN Reason: Hypoglycemia Diphenhydramine HCl (Benadryl) 25 mg IVP Q3H PRN PRN Reason: Itching Diphenhydramine HCl (Benadryl) 25 mg PO Q3H PRN PRN Reason: Itching Diphenhydramine HCl (Benadryl) 25 mg IM Q3H PRN PRN Reason: Itching Ezetimibe (Zetia) 5 mg PO HS [facility] Last Admin: 06/10/18 19:57 Dose: 5 mg Famotidine (Pepcid) 20 mg PO BID [facility] Last Admin: 06/10/18 19:59 Dose: 20 mg Fentanyl (Sublimaze) 50 mcg SLOW IVP Q1H PRN PRN Reason: .BREAKTHROUGH PAIN Glucagon (Glucagon) 1 mg IM PRN PRN PRN Reason: Hypoglycemia Hydralazine HCl (Apresoline) 10 mg SLOW IVP Q4H PRN PRN Reason: SBP Greater Than 180 Hydromorphone HCl (Dilaudid) 0.25 mg SLOW IVP Q15M PRN PRN Reason: Breakthrough Pain Last Admin: 06/05/18 18:44 Dose: 0.25 mg Dextrose/Water (D5w) 1,000 mls @ 0 mls/hr IV .Q0M PRN PRN Reason: Hypoglycemia Fentanyl Citrate 2,000 mcg/ (Sodium Chloride) 100 mls @ 0 mls/hr IV INF PRN PRN Reason: Pain Last Admin: 06/09/18 15:08 Dose: 100 mls Promethazine HCl 25 mg/ Sodium (Chloride) 51 mls @ 153 mls/hr IVPB Q4H PRN PRN Reason: Nausea Insulin Human NPH (Humulin N) 10 unit SC DAILY [facility] Last Admin: 06/10/18 08:19 Dose: 10 unit Insulin Human Regular (Humulin R) 0 units SC .MILD SLIDING SCALE PRN PRN Reason: Mild Correctional Scale Last Admin: 06/10/18 16:42 Dose: 2 unit Insulin Human Regular (Humulin R) 0 units SC .BEDTIME SLIDING SC PRN PRN Reason: Bedtime Correctional Scale Last Admin: 06/07/18 22:21 Dose: 2 unit Lisinopril (Zestril) 20 mg PO BID [facility] Last Admin: 06/10/18 19:57 Dose: 20 mg Ondansetron HCl (Zofran Odt) 4 mg PO Q6H PRN PRN Reason: Nausea/Vomiting Last Admin: 06/07/18 05:54 Dose: 4 mg Ondansetron HCl (Zofran) 4 mg IVP Q6H PRN PRN Reason: Nausea/Vomiting Last Admin: 06/05/18 17:10 Dose: 4 mg Promethazine HCl (Phenergan) 12.5 mg IM Q4H PRN PRN Reason: Nausea/Vomiting Last Admin: 05/31/18 02:55 Dose: 12.5 mg Promethazine HCl (Phenergan) 25 mg IM Q4H PRN PRN Reason: Nausea/Vomiting Saccharomyces Boulardii (Florastor) [address] [facility] Last Admin: 06/10/18 08:16 Dose: 250 mg Simvastatin (Zocor) 10 mg PO [facility] Last Admin: 06/10/18 19:58 Dose: 10 mg Sodium Chloride (Flush - Normal Saline) 10 ml IVF PRN PRN PRN Reason: Saline Flush Sodium Chloride (Flush - Normal Saline) 10 ml IVF PRN PRN PRN Reason: Saline Flush Triamterene/HCTZ (Maxzide-25) [address] [facility] Last Admin: 06/10/18 08:17 Dose: 1 tab Zolpidem Tartrate (Ambien) 5 mg PO HSPRN PRN PRN Reason: Insomnia
[2018-06-11 06:28] LABS: Hemoglobin 7.5 g/dL (12.0-16.0)
[2018-06-11 06:40] LABS: Anion Gap 6 mmol/L (10-20); BUN (Urea Nitrogen) 9 mg/dL (9.8-20.1); Calc. Creatinine Clearance 79 mL/min (70-130); Calcium 7.9 mg/dL (7.8-10.44); Carbon Dioxide 30 mmol/L (23-31); Chloride 105 mmol/L (98-107); Estimated GFR-MDRD Greater than 90; Glucose 87 mg/dL (80-115); Magnesium 1.4 mg/dL (1.6-2.6); Potassium 3.4 mmol/L (3.5-5.1); Sodium 138 mmol/L (136-145)
[2018-06-11] MEDS ORDERED: Potassium Chloride 20 MEQ TAB PO SCH (08:00)
[2018-06-11] MEDS ORDERED: Magnesium 2 GM/50 ML 2 GM in Premix Bag 1 BAG IVPB SCH (08:00)
[2018-06-11] MEDS: Aspirin 81 mg Enteric Coated Tablet PO SCH (08:28)
[2018-06-11] MEDS: Saccharomyces boulardii 250 MG CAP PO SCH (08:28)
[2018-06-11] MEDS: Triamterene/Hydrochlorothiazide 37.5 mg/25 mg Tablet PO SCH (08:28)
[2018-06-11] MEDS: Amlodipine 5 MG TAB PO SCH (08:28)
[2018-06-11] MEDS: Lisinopril 20 MG TAB PO SCH ×2 (08:29→19:53)
[2018-06-11] MEDS: Famotidine 20 MG TAB PO SCH ×2 (08:30→19:53)
--- NOTE | 2018-06-11 09:01 | PQF ---
CLINICAL DOCUMENTATION IMPROVEMENT CLARIFICATION FORM: ICD-10 Updated PLEASE DO AN ADDENDUM TO THE PROGRESS NOTE WITH ANY DOCUMENTATION UPDATES OR ADDITIONS AND CARRY THROUGH TO DC SUMMARY. THANK YOU. DATE: 06/11 ATTN: DR. DEMETRIUS LUNDBERG Please exercise your independent, professional judgment in responding to the clarification form. Clinical indicators are provided on the bottom of this form for your review. Please check appropriate box(s): [ ] Acute blood loss anemia [ ] Post-op anemia related to acute blood loss [ ] Anemia: [ ] Nutritional [x ] Chronic Anemia: [ ] Blood loss [ ] Simple [ ] Other [ x] Anemia of Chronic Disease (please specify ) [ ] Other diagnosis [ ] Unable to determine For continuity of documentation, please document condition throughout progress notes and discharge summary. Thank You. CLINICAL INDICATORS - SIGNS / SYMPTOMS / LABS H/H: 8.3/26.4 (05/28, ADMIT) 6.5/20.6 (06/01) 9.8/30.4 (06/02) 7.5/23.7 (06/11) 05/29: I&D R ANTERIOR KNEE (EBL 50 ML) PN 06/01 (LADHA): 4) ANEMIA - ?SURGICAL BLOOD LOSS/?NUTRITIONAL; PLAN : TRANSFUSE 1U PRBC RISK FACTORS: MODERATE PE MALNUTRITION I&D R KNEE CKD 2 TREATMENTS: TRANSFUSION 1U PRBC (06/01) SERIAL H/H THANK YOU! [employer] (This form is maintained as a part of the permanent medical record) 2014 [employer]. All Rights Reserved Sena Allen RN, BSN [email or web address] Office: [phone] [facility]
[2018-06-11] MEDS: HYDROcodone/Acetaminophen 5/325 mg Tablet PO PRN ×4 (09:21→22:40)
[2018-06-11] MEDS: NPH, Human Insulin Isophane 300 UNIT/3 ML VIAL SC SCH (11:42)
[2018-06-11 13:59] LABS: Hemoglobin 8.8 g/dL (12.0-16.0)
--- NOTE | 2018-06-11 14:47 | PDOC.PN ---
- Subjective Encounter Start Date: 06/11/18 Encounter Start Time: 10:30 Subjective: pt up in bed no complains - Objective Resuscitation Status: Resuscitation Status FULL:Full Resuscitation Vital Signs & Weight: Vital Signs (12 hours) Temp Pulse Pulse Resp BP BP BP 06/11/18 14:12 98.3 F 76 22 H 136/60 06/11/18 12:55 98.9 F 85 18 142/68 H 06/11/18 11:37 98.6 F 90 18 135/56 L 06/11/18 08:30 06/11/18 08:29 143/74 H 06/11/18 08:28 77 143/74 H 06/11/18 07:17 98.6 F 77 14 143/74 H 06/11/18 04:00 98.1 F 89 16 161/81 H Pulse Ox 06/11/18 14:12 95 06/11/18 12:55 95 06/11/18 11:37 94 L 06/11/18 08:30 92 L 06/11/18 08:29 06/11/18 08:28 06/11/18 07:17 92 L 06/11/18 04:00 95 Weight Admit Weight 96 lb 3.2 oz Weight 96 lb 3.2 oz I&O: 06/10/18 06/11/18 06/12/18 06:59 06:59 06:59 Intake Total 1560 1670 350 Balance 1560 1670 350 Result Diagrams: 06/11/18 13:34 06/11/18 05:54 Additional Labs: Accuchecks 06/11/18 06/11/18 06/10/18 11:17 06:02 21:09 POC Glucose 97 90 116 H 06/10/18 16:14 POC Glucose 200 H Phys Exam - Physical Examination Neck: no nodes, no JVD, supple, full ROM Respiratory: no wheezing, no rales, no rhonchi, wheezing present, clear to auscultation bilateral Cardiovascular: RRR, no significant murmur, no rub, gallop, irregular Gastrointestinal: soft, non-tender, no distention, positive bowel sounds Dx/Plan (1) Status post above knee amputation of right lower extremity Code(s): Z89.611 - ACQUIRED ABSENCE OF RIGHT LEG ABOVE KNEE Status: Acute (2) Anemia, normocytic normochromic Code(s): D64.9 - ANEMIA, UNSPECIFIED Status: Chronic (3) Diabetes type 2, controlled Code(s): E11.9 - TYPE 2 DIABETES MELLITUS WITHOUT COMPLICATIONS Status: Chronic Qualifiers: Diabetes mellitus carpenter mine insulin use: without carpenter mine use Diabetes mellitus complication status: without complication Qualified Code(s): E11.9 - Type 2 diabetes mellitus without complications (4) PVD (peripheral vascular disease) Code(s): I73.9 - PERIPHERAL VASCULAR DISEASE, UNSPECIFIED Status: Chronic - Plan will continue asa for now will hold plavix -: pt received one unit of blood -: will replace electrolytes * . Review of Systems - Review of Systems Respiratory: negative: Cough, Dry, Shortness of Breath, Hemoptysis, SOB with Excertion, Pleuritic Pain, Sputum, Wheezing Cardiovascular: negative: chest pain, palpitations, orthopnea, paroxysmal nocturnal dyspnea, edema, light headedness, other Gastrointestinal: negative: Nausea, Vomiting, Abdominal Pain, Diarrhea, Constipation, Melena, Hematochezia, Other Genitourinary: negative: Dysuria, Frequency, Incontinence, Hematuria, Retention , Other - Medications/Allergies Allergies/Adverse Reactions: Allergies Allergy/AdvReac Type Severity Reaction Status Date / Time No Known Drug Allergies Allergy Verified 05/13/18 13:16 Medications: Current Medications Hydrocodone Bitart/Acetaminophen ([place] 5/325) 1 tab PO Q4H PRN PRN Reason: Pain 2-5 Last Admin: 06/10/18 22:01 Dose: 1 tab Hydrocodone Bitart/Acetaminophen ([place] 5/325) 2 tab PO Q4H PRN PRN Reason: Pain 6-10 Last Admin: 06/11/18 12:59 Dose: 2 tab Amitriptyline HCl (Elavil) 100 mg PO HS [facility] Last Admin: 06/10/18 19:57 Dose: 100 mg Amlodipine Besylate (Norvasc) 2.5 mg PO DAILY [facility] Last Admin: 06/11/18 08:28 Dose: 2.5 mg Aspirin (Ecotrin) 81 mg PO DAILY [facility] Last Admin: 06/11/18 08:28 Dose: 81 mg Dextrose/Water (Dextrose 50%) 25 gm SLOW IVP PRN PRN PRN Reason: Hypoglycemia Diphenhydramine HCl (Benadryl) 25 mg IVP Q3H PRN PRN Reason: Itching Diphenhydramine HCl (Benadryl) 25 mg PO Q3H PRN PRN Reason: Itching Diphenhydramine HCl (Benadryl) 25 mg IM Q3H PRN PRN Reason: Itching Ezetimibe (Zetia) 5 mg PO HS [facility] Last Admin: 06/10/18 19:57 Dose: 5 mg Famotidine (Pepcid) 20 mg PO BID [facility] Last Admin: 06/11/18 08:30 Dose: 20 mg Fentanyl (Sublimaze) 50 mcg SLOW IVP Q1H PRN PRN Reason: .BREAKTHROUGH PAIN Glucagon (Glucagon) 1 mg IM PRN PRN PRN Reason: Hypoglycemia Hydralazine HCl (Apresoline) 10 mg SLOW IVP Q4H PRN PRN Reason: SBP Greater Than 180 Hydromorphone HCl (Dilaudid) 0.25 mg SLOW IVP Q15M PRN PRN Reason: Breakthrough Pain Last Admin: 06/05/18 18:44 Dose: 0.25 mg Dextrose/Water (D5w) 1,000 mls @ 0 mls/hr IV .Q0M PRN PRN Reason: Hypoglycemia Promethazine HCl 25 mg/ Sodium (Chloride) 51 mls @ 153 mls/hr IVPB Q4H PRN PRN Reason: Nausea Insulin Human NPH (Humulin N) 10 unit SC DAILY [facility] Last Admin: 06/11/18 11:42 Dose: Not Given Insulin Human Regular (Humulin R) 0 units SC .MILD SLIDING SCALE PRN PRN Reason: Mild Correctional Scale Last Admin: 06/10/18 16:42 Dose: 2 unit Insulin Human Regular (Humulin R) 0 units SC .BEDTIME SLIDING SC PRN PRN Reason: Bedtime Correctional Scale Last Admin: 06/07/18 22:21 Dose: 2 unit Lisinopril (Zestril) 20 mg PO BID [facility] Last Admin: 06/11/18 08:29 Dose: 20 mg Ondansetron HCl (Zofran Odt) 4 mg PO Q6H PRN PRN Reason: Nausea/Vomiting Last Admin: 06/07/18 05:54 Dose: 4 mg Ondansetron HCl (Zofran) 4 mg IVP Q6H PRN PRN Reason: Nausea/Vomiting Last Admin: 06/05/18 17:10 Dose: 4 mg Promethazine HCl (Phenergan) 12.5 mg IM Q4H PRN PRN Reason: Nausea/Vomiting Last Admin: 05/31/18 02:55 Dose: 12.5 mg Promethazine HCl (Phenergan) 25 mg IM Q4H PRN PRN Reason: Nausea/Vomiting Saccharomyces Boulardii (Florastor) [facility] Last Admin: 06/11/18 08:28 Dose: 250 mg Simvastatin (Zocor) 10 mg PO [facility] Last Admin: 06/10/18 19:58 Dose: 10 mg Sodium Chloride (Flush - Normal Saline) 10 ml IVF PRN PRN PRN Reason: Saline Flush Sodium Chloride (Flush - Normal Saline) 10 ml IVF PRN PRN PRN Reason: Saline Flush Sodium Chloride (Flush - Normal Saline) 10 ml IVF PRN PRN PRN Reason: Saline Flush Triamterene/HCTZ (Maxzide-25) 1 tab PO [facility] Last Admin: 06/11/18 08:28 Dose: 1 tab Zolpidem Tartrate (Ambien) 5 mg PO HSPRN PRN PRN Reason: Insomnia
[2018-06-11] MEDS: Insulin Regular 300 UNITS/3 ML VIAL SC PRN (15:43)
[2018-06-11] MEDS ORDERED: traMADol HCl 50 MG TAB PO PRN (19:26)
[2018-06-11] MEDS: Ezetimibe 10 MG TAB PO SCH (19:52)
[2018-06-11] MEDS: traMADol HCl 50 MG TAB PO PRN (19:52)
[2018-06-11] MEDS: Simvastatin 20 MG TAB PO SCH (19:52)
[2018-06-11] MEDS: Amitriptyline HCl 100 MG TAB PO SCH (19:53)
[2018-06-12] MEDS: traMADol HCl 50 MG TAB PO PRN ×2 (04:01→17:21)
[2018-06-12 06:09] LABS: #Basophils 0.1 thou/uL (0.0-0.2); #Eosinphils 0.8 thou/uL (0.0-0.7); #Lymphocytes 3.4 thou/uL (1.20-3.40); #Monocytes 0.7 thou/uL (0.11-0.59); #Neutrophils 3.8 thou/uL (1.40-6.50); %Basophils 0.8 % (0.0-1.0); %Eosinophils 9.4 % (0.0-10.0); %Lymphocytes 39.1 % (21.0-51.0); %Monocytes 7.4 % (0.0-10.0); %Neutrophils 43.2 % (42.0-75.0); Hemoglobin 9.6 g/dL (12.0-16.0); Mean Corpuscular HGB CONC 32.2 g/dL (32.0-36.0); Mean Corpuscular Volume 93.2 fL (78.0-98.0); Mean Platelet Volume 5.4 fL (7.4-10.4); Platelet Count 811 thou/uL (130-400); RBC Distribution Width 13.1 % (11.5-14.5); Red Blood Cell (RBC) Count 3.21 mill/uL (4.20-5.40); White Blood Cell (WBC) Count 8.8 thou/uL (4.8-10.8)
[2018-06-12 06:19] LABS: Anion Gap 6 mmol/L (10-20); BUN (Urea Nitrogen) 17 mg/dL (9.8-20.1); Calc. Creatinine Clearance 67 mL/min (70-130); Carbon Dioxide 30 mmol/L (23-31); Chloride 103 mmol/L (98-107); Estimated GFR-MDRD Greater than 90; Glucose 185 mg/dL (80-115); Magnesium 1.5 mg/dL (1.6-2.6); Potassium 4.1 mmol/L (3.5-5.1); Sodium 135 mmol/L (136-145)
[2018-06-12] MEDS: Triamterene/Hydrochlorothiazide 37.5 mg/25 mg Tablet PO SCH (09:06)
[2018-06-12] MEDS: Aspirin 81 mg Enteric Coated Tablet PO SCH (09:06)
[2018-06-12] MEDS: Saccharomyces boulardii 250 MG CAP PO SCH (09:06)
[2018-06-12] MEDS: Famotidine 20 MG TAB PO SCH ×2 (09:06→19:38)
[2018-06-12] MEDS: NPH, Human Insulin Isophane 300 UNIT/3 ML VIAL SC SCH (09:07)
[2018-06-12] MEDS: Lisinopril 20 MG TAB PO SCH ×2 (09:07→19:38)
[2018-06-12] MEDS: Amlodipine 5 MG TAB PO SCH (09:08)
[2018-06-12] MEDS: HYDROcodone/Acetaminophen 5/325 mg Tablet PO PRN ×3 (09:12→19:37)
[2018-06-12] MEDS ORDERED: Magnesium 2 GM/50 ML 2 GM in Premix Bag 1 BAG IVPB SCH (10:30)
[2018-06-12] MEDS: Amitriptyline HCl 100 MG TAB PO SCH (19:37)
[2018-06-12] MEDS: Simvastatin 20 MG TAB PO SCH (19:37)
[2018-06-12] MEDS: Ezetimibe 10 MG TAB PO SCH (19:38)
[2018-06-12 20:49] VITALS: BP 142/75; TEMP 98.1
--- NOTE | 2018-06-13 14:06 | DIS ---
DATE OF ADMISSION: 05/28/2018 DATE OF DISCHARGE: 06/12/2018 PREOPERATIVE DIAGNOSES: Initially is right anterior knee wound dehiscence with necrotic superior nima e of the patella and patellar tendon, right. POSTOPERATIVE DIAGNOSES: Initially is right anterior knee wound dehiscence with necrotic superior po le of the patella and patellar tendon, right. PROCEDURE #1: 1. The patient underwent irrigation and debridement with sharp excision of skin, subcutaneous tissue , fat, tendon, and bone, right knee. 2. Application of wound VAC, right knee. This procedure was done on 05/29/2018. Second procedure completed on 06/05/2018. PREOPERATIVE DIAGNOSES: Severe wound of right knee with peripheral vascular disease, diabetes. POSTOPERATIVE DIAGNOSES: Severe wound of right knee with peripheral vascular disease, diabetes. PROCEDURE #2: The patient underwent above knee amputation on the right. HOSPITAL COURSE: Hospital stay was unremarkable. The patient worked well with PT, OT. Unfortunatel y, with trying to debride wound and this did not work and therefore we had to proceed to the ab ove knee amputation. Hospital stay again was unremarkable. The patient was seen by our [facility] throughout her stay. DISCHARGE CONDITION: Stable. DISPOSITION: To rehabilitation/home. DISCHARGE MEDICATIONS: Given with usage instructions. FOLLOWUP: Followup would be in 10-21 days, sooner if there are problems or concerns. Grady Srinivasan PA-C for Rodney Echevarria M.D./Lázaro Spears M.D.
== END 2018-06-12 20:15 | disposition home or self-care (01) | DRG 908 ==
LOC: SURG A 11:31
PROVIDERS: ADMIT Orthopaedic Surgery; ATTEND Orthopaedic Surgery
PROC: 0LBQ0ZZ Excision of Right Knee Tendon, Open Approach (ICD-10-PCS; principal; 2018-05-29)
PROC: 30233N1 Transfusion of Nonautologous Red Blood Cells into Peripheral Vein, Percutaneous Approach (ICD-10-PCS; 2018-05-30)
PROC: 0Y6F0ZZ Detachment at Right Knee Region, Open Approach (ICD-10-PCS; 2018-06-05)
DX: T81.31XA Disruption of external operation (surgical) wound, not elsewhere classified, initial encounter (principal); I96 Gangrene, not elsewhere classified; E87.1 Hypo-osmolality and hyponatremia; E44.0 Moderate protein-calorie malnutrition; L76.82 Other postprocedural complications of skin and subcutaneous tissue; Z95.5 Presence of coronary angioplasty implant and graft; Z79.4 Long term (current) use of insulin; Z79.01 Long term (current) use of anticoagulants; Z79.82 Long term (current) use of aspirin; F17.211 Nicotine dependence, cigarettes, in remission; E11.51 Type 2 diabetes mellitus with diabetic peripheral angiopathy without gangrene; E83.42 Hypomagnesemia; I25.10 Atherosclerotic heart disease of native coronary artery without angina pectoris; F41.9 Anxiety disorder, unspecified; F32.9 Major depressive disorder, single episode, unspecified; I10 Essential (primary) hypertension; D63.8 Anemia in other chronic diseases classified elsewhere
CPT/HCPCS: 36415; 36416; 36430; 80048; 80053; 80069; 83036; 83735; 85014; 85018; 85025; 85027; 85049; 85652; 86140; 86850; 86900; 86901; 88307; 90471; 90662; 99211; G0008; G0463; G8978-GP-CK; G8978-GP-CM; G8979-GP-CI; G8979-GP-CJ; G8987-GO-CK; G8988-GO-CJ; J1170; J1815; J1885; J2001; J2250; J2405; J2550; J2704; J2765; J3010; J3490; J7050; P9016; Q0162

== ENCOUNTER 2021-08-29 17:39 | Emergency (ER) | payer MEDICARE ==
[2021-08-29 21:37] LABS: #Basophils 0.1 thou/uL (0.0-0.2); #Eosinphils 0.2 thou/uL (0.0-0.7); #Lymphocytes 2.9 thou/uL (1.20-3.40); #Monocytes 0.7 thou/uL (0.11-0.59); #Neutrophils 6.8 thou/uL (1.40-6.50); %Basophils 0.5 % (0.0-1.0); %Eosinophils 2.1 % (0.0-10.0); %Lymphocytes 27.2 % (21.0-51.0); %Monocytes 6.8 % (0.0-10.0); %Neutrophils 63.3 % (42.0-75.0); Hemoglobin 10.6 g/dL (12.0-16.0); Mean Corpuscular HGB CONC 31.9 g/dL (32.0-36.0); Mean Corpuscular Hemoglobin 30.4 pg (27.0-31.0); Mean Corpuscular Volume 95.2 fL (78.0-98.0); Mean Platelet Volume 6.6 fL (7.4-10.4); Platelet Count 502 thou/uL (130-400); RBC Distribution Width 13.7 % (11.5-14.5); Red Blood Cell (RBC) Count 3.48 mill/uL (4.20-5.40); White Blood Cell (WBC) Count 10.7 thou/uL (4.8-10.8)
[2021-08-29 21:40] LABS: Bacteria/HPF 4+ HPF (None Seen); Bilirubin Negative (Negative); Blood, Urine Negative (Negative); Clarity Extra Turbid (Clear); Glucose, Urine (Dipstick) Normal (Negative); Ketone, Urine Negative (Negative); Leukocyte 500 Leu/uL (Negative); Nitrite 1+ (Negative); Protein, Urine (Dipstick) 200 mg/dL (Neg-Trace); RBC/HPF 0-3 HPF (0-3); Specific Gravity, Urine 1.008 (1.002-1.036); Squamous Epithelial None Seen HPF (0-3); Urobilinogen Normal mg/dL (Less than 2); WBC/HPF 21-50 HPF (0-3); pH, Urine 6.5 (5.0-9.0)
[2021-08-29] MEDS ORDERED: cefTRIAXone\\ROCEPHIN 2 GM VIAL ONE (21:52)
[2021-08-29 21:59] LABS: CK (CPK) 48 U/L (29-168); Lipase 14 U/L (8-78); Magnesium 1.6 mg/dL (1.6-2.6); Phosphorus 3.3 mg/dL (2.3-4.7)
[2021-08-29 22:00] LABS: ALT (SGPT) 7 U/L (8-55); AST (SGOT) 14 U/L (5-34); Albumin 1.9 g/dL (3.4-4.8); Alkaline Phosphatase 96 U/L (40-110); Anion Gap 13 mmol/L (10-20); BUN (Urea Nitrogen) 21 mg/dL (9.8-20.1); Bilirubin, Total 0.2 mg/dL (0.2-1.2); Calc. Creatinine Clearance 0 mL/min (70-130); Calcium 7.8 mg/dL (7.8-10.44); Carbon Dioxide 19 mmol/L (23-31); Chloride 111 mmol/L (98-107); Glucose 75 mg/dL (83-110); Potassium 5.1 mmol/L (3.5-5.1); Protein, Total 4.9 g/dL (5.8-8.1); Sodium 138 mmol/L (136-145)
== END 2021-08-29 22:52 | disposition home or self-care (01) ==
LOC: ERS 17:39
DX: S20.219A Contusion of unspecified front wall of thorax, initial encounter (principal); R53.1 Weakness; N39.0 Urinary tract infection, site not specified; I25.10 Atherosclerotic heart disease of native coronary artery without angina pectoris; E11.9 Type 2 diabetes mellitus without complications; E78.5 Hyperlipidemia, unspecified; I10 Essential (primary) hypertension; F17.210 Nicotine dependence, cigarettes, uncomplicated; Z79.899 Other long term (current) drug therapy; Z79.84 Long term (current) use of oral hypoglycemic drugs; Z79.4 Long term (current) use of insulin; X50.9XXA Other and unspecified overexertion or strenuous movements or postures, initial encounter
CPT/HCPCS: 36415; 51701; 71045; 80053; 81003; 81015; 82010; 82550; 83605; 83690; 83735; 83880; 84100; 84484; 85025; 87040; 87086; 96365; J0696

== ENCOUNTER 2021-09-06 11:23 | Inpatient (IN) | payer MEDICARE, OTHER ==
[2021-09-06 13:32] LABS: #Basophils 0.1 thou/uL (0.0-0.2); #Eosinphils 0.2 thou/uL (0.0-0.7); #Lymphocytes 2.2 thou/uL (1.20-3.40); #Monocytes 0.8 thou/uL (0.11-0.59); #Neutrophils 9.4 thou/uL (1.40-6.50); %Basophils 0.7 % (0.0-1.0); %Eosinophils 1.8 % (0.0-10.0); %Monocytes 6.6 % (0.0-10.0); %Neutrophils 73.9 % (42.0-75.0); Hemoglobin 11.5 g/dL (12.0-16.0); Mean Corpuscular HGB CONC 31.8 g/dL (32.0-36.0); Mean Corpuscular Volume 94.5 fL (78.0-98.0); Mean Platelet Volume 6.5 fL (7.4-10.4); Platelet Count 495 thou/uL (130-400); RBC Distribution Width 13.6 % (11.5-14.5); Red Blood Cell (RBC) Count 3.84 mill/uL (4.20-5.40); White Blood Cell (WBC) Count 12.8 thou/uL (4.8-10.8)
[2021-09-06 13:53] LABS: ALT (SGPT) Less than 7 U/L (8-55); AST (SGOT) 11 U/L (5-34); Alkaline Phosphatase 107 U/L (40-110); Anion Gap 11 mmol/L (10-20); BUN (Urea Nitrogen) 14 mg/dL (9.8-20.1); Bilirubin, Total Less than 0.2 mg/dL (0.2-1.2); Calc. Creatinine Clearance 0 mL/min (70-130); Calcium 8.2 mg/dL (7.8-10.44); Carbon Dioxide 16 mmol/L (23-31); Chloride 111 mmol/L (98-107); Glucose 134 mg/dL (83-110); Lipase 26 U/L (8-78); Potassium 5.3 mmol/L (3.5-5.1); Sodium 133 mmol/L (136-145)
[2021-09-06] MEDS ORDERED: Morphine 4 MG/ML VIAL ONE (14:01)
[2021-09-06 15:34] LABS: Bacteria/HPF 4+ HPF (None Seen); Bilirubin Negative (Negative); Blood, Urine Negative (Negative); Clarity Clear (Clear); Glucose, Urine (Dipstick) Normal (Negative); Ketone, Urine Negative (Negative); Leukocyte 250 Leu/uL (Negative); Nitrite Negative (Negative); Protein, Urine (Dipstick) 300 mg/dL (Neg-Trace); RBC/HPF 0-3 HPF (0-3); Specific Gravity, Urine 1.013 (1.002-1.036); Squamous Epithelial 0-3 HPF (0-3); Urobilinogen Normal mg/dL (Less than 2); WBC/HPF Greater than 50 HPF (0-3)
[2021-09-06] MEDS ORDERED: cefTRIAXone\\ROCEPHIN 2 GM VIAL ONE (16:50)
[2021-09-06 22:23] VITALS: BMI 20.6
[2021-09-06] MEDS ORDERED: Acetaminophen 650 MG Suppository PR PRN (23:21)
[2021-09-06] MEDS ORDERED: Ondansetron ODT 4 MG TAB PO PRN (23:21)
[2021-09-06] MEDS ORDERED: Dextrose 5% in Water 1,000 ML IV PRN (23:21)
[2021-09-06] MEDS ORDERED: HumaLOG 300 UNITS/3 ML VIAL SC PRN ×2 (23:21)
[2021-09-06] MEDS ORDERED: Ondansetron PF 4 MG/2 ML Vial IVP PRN (23:21)
[2021-09-06] MEDS ORDERED: Dextrose 50% Abboject 50 ML SYRINGE SLOW IVP PRN (23:21)
[2021-09-06] MEDS ORDERED: hydrALAZINE 20 MG/ML VIAL SLOW IVP PRN (23:23)
[2021-09-07] MEDS: Acetaminophen 325 MG TAB PO PRN ×2 (00:06→16:52)
[2021-09-07] MEDS ORDERED: Melatonin 3 MG TAB PO SCH (01:00)
[2021-09-07] MEDS ORDERED: traZODone HCl 50 MG TAB PO SCH (01:00)
[2021-09-07] MEDS ORDERED: Amlodipine 5 MG TAB PO SCH (01:45)
[2021-09-07] MEDS ORDERED: Piperacillin/Tazobactam 3.375 GM in Sodium Chloride 0.9% 100 ML IVPB SCH (02:00)
[2021-09-07 02:30] LABS: Anion Gap 14 mmol/L (10-20); BUN (Urea Nitrogen) 13 mg/dL (9.8-20.1); Calc. Creatinine Clearance 24 mL/min (70-130); Calcium 7.9 mg/dL (7.8-10.44); Carbon Dioxide 13 mmol/L (23-31); Chloride 111 mmol/L (98-107); Glucose 103 mg/dL (83-110); Potassium 4.7 mmol/L (3.5-5.1); Sodium 133 mmol/L (136-145)
[2021-09-07] MEDS: Piperacillin/Tazobactam 3.375 GM in Sodium Chloride 0.9% 100 ML IVPB SCH ×3 (05:01→21:17)
[2021-09-07 06:13] LABS: #Basophils 0.1 thou/uL (0.0-0.2); #Eosinphils 0.3 thou/uL (0.0-0.7); #Lymphocytes 2.8 thou/uL (1.20-3.40); #Monocytes 0.6 thou/uL (0.11-0.59); #Neutrophils 5.5 thou/uL (1.40-6.50); %Basophils 0.9 % (0.0-1.0); %Eosinophils 3.4 % (0.0-10.0); %Lymphocytes 29.6 % (21.0-51.0); %Monocytes 6.9 % (0.0-10.0); %Neutrophils 59.1 % (42.0-75.0); Hemoglobin 10.2 g/dL (12.0-16.0); Mean Corpuscular HGB CONC 31.4 g/dL (32.0-36.0); Mean Corpuscular Hemoglobin 29.4 pg (27.0-31.0); Mean Corpuscular Volume 93.6 fL (78.0-98.0); Mean Platelet Volume 6.8 fL (7.4-10.4); Platelet Count 454 thou/uL (130-400); RBC Distribution Width 13.5 % (11.5-14.5); Red Blood Cell (RBC) Count 3.48 mill/uL (4.20-5.40); White Blood Cell (WBC) Count 9.3 thou/uL (4.8-10.8)
[2021-09-07 06:36] LABS: Anion Gap 12 mmol/L (10-20); BUN (Urea Nitrogen) 13 mg/dL (9.8-20.1); Calc. Creatinine Clearance 23 mL/min (70-130); Calcium 7.8 mg/dL (7.8-10.44); Carbon Dioxide 16 mmol/L (23-31); Chloride 112 mmol/L (98-107); Glucose 85 mg/dL (83-110); Potassium 4.6 mmol/L (3.5-5.1); Sodium 135 mmol/L (136-145)
[2021-09-07] MEDS: Enoxaparin Sodium 30 MG/0.3 ML SYRINGE SC SCH (09:01)
[2021-09-07] MEDS: Amlodipine 5 MG TAB PO SCH (09:01)
[2021-09-07] MEDS: Sodium Chloride 0.9% 1,000 ML IV SCH (16:52)
[2021-09-07] MEDS: traZODone HCl 50 MG TAB PO SCH (21:17)
[2021-09-07] MEDS: Melatonin 3 MG TAB PO SCH (21:17)
[2021-09-08] MEDS: Piperacillin/Tazobactam 3.375 GM in Sodium Chloride 0.9% 100 ML IVPB SCH (04:55)
[2021-09-08] MEDS: Sodium Chloride 0.9% 1,000 ML IV SCH ×2 (05:01→20:48)
[2021-09-08] MEDS: Amlodipine 5 MG TAB PO SCH (08:28)
[2021-09-08] MEDS: Enoxaparin Sodium 30 MG/0.3 ML SYRINGE SC SCH (08:29)
[2021-09-08] MEDS: cefTRIAXone\\ROCEPHIN 1 GM in Sodium Chloride 0.9% 100 ML IVPB SCH (11:39)
[2021-09-08] MEDS: Pantoprazole 40 MG VIAL IVP SCH (19:31)
[2021-09-08] MEDS: Ascorbic Acid 500 mg Chewable Tablet PO SCH (20:42)
[2021-09-08] MEDS: Cholecalciferol 1,000 UNITS (25 MCG) TAB PO SCH (20:43)
[2021-09-08] MEDS: metFORMIN 500 MG TAB PO SCH (20:46)
[2021-09-08] MEDS: traZODone HCl 50 MG TAB PO SCH (20:46)
[2021-09-08] MEDS: Melatonin 3 MG TAB PO SCH (20:47)
[2021-09-08] MEDS: Fish Oil 1,000 MG CAP PO SCH (20:47)
[2021-09-08] MEDS ORDERED: Ferrous Sulfate 325 MG TAB PO SCH (21:00)
[2021-09-08] MEDS ORDERED: Simvastatin 10 MG TAB PO SCH (21:00)
[2021-09-08] MEDS ORDERED: Ezetimibe 10 MG TAB PO SCH (21:00)
[2021-09-09 06:54] LABS: SARS-CoV-2 NAA Rapid Test Not Detected (NotDetected)
[2021-09-09] MEDS ORDERED: Pioglitazone HCl 15 MG TAB PO SCH (09:00)
[2021-09-09] MEDS: Ascorbic Acid 500 mg Chewable Tablet PO SCH (09:21)
[2021-09-09] MEDS: Fish Oil 1,000 MG CAP PO SCH (09:22)
[2021-09-09] MEDS: metFORMIN 500 MG TAB PO SCH (09:22)
[2021-09-09] MEDS: Enoxaparin Sodium 30 MG/0.3 ML SYRINGE SC SCH (09:22)
[2021-09-09] MEDS: Cholecalciferol 1,000 UNITS (25 MCG) TAB PO SCH (09:22)
[2021-09-09] MEDS ORDERED: PROPOFOL 200 MG/20 ML VIAL ONE (09:26)
[2021-09-09] MEDS ORDERED: Promethazine HCl 25 MG/ML VIAL IVPB PRN (09:36)
[2021-09-09] MEDS ORDERED: Promethazine HCl 25 MG/ML VIAL IM PRN (09:36)
[2021-09-09] MEDS ORDERED: Ondansetron HCl/PF 4 MG/2 ML Vial IVP PRN (09:36)
[2021-09-09] MEDS: cefTRIAXone\\ROCEPHIN 1 GM in Sodium Chloride 0.9% 100 ML IVPB SCH (10:11)
[2021-09-09] MEDS: Pantoprazole 40 MG VIAL IVP SCH (10:30)
[2021-09-09] MEDS: Amlodipine 5 MG TAB PO SCH (10:31)
[2021-09-09] MEDS: Sodium Chloride 0.9% 1,000 ML IV SCH (12:50)
[2021-09-09 13:56] LABS: Anion Gap 14 mmol/L (10-20); BUN (Urea Nitrogen) 15 mg/dL (9.8-20.1); Calc. Creatinine Clearance 22 mL/min (70-130); Calcium 7.5 mg/dL (7.8-10.44); Carbon Dioxide 12 mmol/L (23-31); Chloride 116 mmol/L (98-107); Glucose 138 mg/dL (83-110); Potassium 3.6 mmol/L (3.5-5.1); Sodium 138 mmol/L (136-145)
[2021-09-09 17:11] VITALS: BP 148/77; TEMP 98.2
== END 2021-09-09 17:00 | disposition home or self-care (01) | DRG 689 ==
LOC: ERS 11:23 → T4-B 16:53
PROVIDERS: ADMIT Family Medicine; ATTEND Internal Medicine
PROC: 0DB78ZX Excision of Stomach, Pylorus, Via Natural or Artificial Opening Endoscopic, Diagnostic (ICD-10-PCS; principal; 2021-09-09)
DX: N39.0 Urinary tract infection, site not specified (principal); E43 Unspecified severe protein-calorie malnutrition; N17.9 Acute kidney failure, unspecified; E87.1 Hypo-osmolality and hyponatremia; Z16.23 Resistance to quinolones and fluoroquinolones; E87.2 Acidosis; I25.10 Atherosclerotic heart disease of native coronary artery without angina pectoris; Z20.822 Contact with and (suspected) exposure to COVID-19; M81.0 Age-related osteoporosis without current pathological fracture; E11.22 Type 2 diabetes mellitus with diabetic chronic kidney disease; I12.9 Hypertensive chronic kidney disease with stage 1 through stage 4 chronic kidney disease, or unspecified chronic kidney disease; D63.1 Anemia in chronic kidney disease; E78.5 Hyperlipidemia, unspecified; F41.9 Anxiety disorder, unspecified; F32.A Depression, unspecified; E11.51 Type 2 diabetes mellitus with diabetic peripheral angiopathy without gangrene; N18.30 Chronic kidney disease, stage 3 unspecified; D75.839 Thrombocytosis, unspecified; K43.9 Ventral hernia without obstruction or gangrene; K26.9 Duodenal ulcer, unspecified as acute or chronic, without hemorrhage or perforation; B96.20 Unspecified Escherichia coli [E. coli] as the cause of diseases classified elsewhere; Z90.710 Acquired absence of both cervix and uterus; Z89.611 Acquired absence of right leg above knee; Z90.49 Acquired absence of other specified parts of digestive tract; Z68.20 Body mass index [BMI] 20.0-20.9, adult; Z79.4 Long term (current) use of insulin; Z79.82 Long term (current) use of aspirin; Z79.899 Other long term (current) drug therapy
CPT/HCPCS: 36415; 36416; 71045; 74177; 80048; 80053; 81003; 81015; 82274; 83036; 83605; 83690; 84484; 85025; 87040; 87077; 87086; 87186; 88305; 88312; 93005; C9113; J0360; J0696; J1650; J2270; J2405; J2543; J2704; J3490; J7050; U0002

== ENCOUNTER 2022-02-02 13:08 | Inpatient (IN) | payer MEDICARE, OTHER ==
[2022-02-02] MEDS ORDERED: cefTRIAXone\\ROCEPHIN 1 GM VIAL ONE (14:00)
[2022-02-02] MEDS ORDERED: Vancomycin 1 GM/200 ML BAG ONE (14:00)
[2022-02-02 14:13] LABS: #Lymphocytes 1.3 thou/uL (1.20-3.40); #Monocytes 0.4 thou/uL (0.11-0.59); #Neutrophils 7.2 thou/uL (1.40-6.50); %Basophils 0.2 % (0.0-1.0); %Eosinophils 0.2 % (0.0-10.0); %Lymphocytes 14.1 % (21.0-51.0); %Neutrophils 80.5 % (42.0-75.0); Hemoglobin 11.2 g/dL (12.0-16.0); Mean Corpuscular HGB CONC 30.9 g/dL (32.0-36.0); Mean Corpuscular Hemoglobin 29.2 pg (27.0-31.0); Mean Corpuscular Volume 94.6 fL (78.0-98.0); Mean Platelet Volume 6.9 fL (7.4-10.4); Platelet Count 370 thou/uL (130-400); RBC Distribution Width 14.6 % (11.5-14.5); Red Blood Cell (RBC) Count 3.82 mill/uL (4.20-5.40); White Blood Cell (WBC) Count 8.9 thou/uL (4.8-10.8)
[2022-02-02 14:33] LABS: ALT (SGPT) 14 U/L (8-55); AST (SGOT) 31 U/L (5-34); Acetaminophen Less than 10.0 mcg/mL (10.0-30.0); Albumin 2.8 g/dL (3.4-4.8); Alcohol Less than 10 mg/dL (Less than 10); Alkaline Phosphatase 106 U/L (40-110); Anion Gap 15 mmol/L (10-20); BUN (Urea Nitrogen) 50 mg/dL (9.8-20.1); Bilirubin, Total 0.2 mg/dL (0.2-1.2); Calc. Creatinine Clearance 0 mL/min (70-130); Calcium 8.4 mg/dL (7.8-10.44); Carbon Dioxide 17 mmol/L (23-31); Chloride 112 mmol/L (98-107); Glucose 157 mg/dL (83-110); Protein, Total 5.8 g/dL (5.8-8.1); Salicylate Less than 8.0 mg/dL (15.0-30.0); Sodium 137 mmol/L (136-145)
[2022-02-02 14:49] LABS: Potassium 6.6 mmol/L (3.5-5.1)
[2022-02-02] MEDS ORDERED: Pharmacy to Dose ABXS IVPB PRN (14:51)
[2022-02-02 14:59] LABS: Amphetamine Not Detected (NotDetected); Barbiturates Screen Not Detected (NotDetected); Benzodiazepine Screen Not Detected (NotDetected); Cocaine Metabolite Screen Not Detected (NotDetected); Methadone Not Detected (NotDetected); Methamphetamine Not Detected (NotDetected); Opiate Screen Not Detected (NotDetected); Oxycodone Screen Not Detected (NotDetected); Phencyclidine (PCP) Not Detected (NotDetected); THC/Cannabinoid Screen Not Detected (NotDetected); Tricyclic Screen Detected (NotDetected)
[2022-02-02] MEDS ORDERED: Vancomycin 1 GM in Premix Bag 1 BAG IVPB SCH (15:00)
[2022-02-02 15:01] LABS: CKMB 10.3 ng/mL (0-6.6)
[2022-02-02 15:10] LABS: Lactic Acid 0.3 mmol/L (0.5-2.2)
[2022-02-02 15:14] LABS: Bacteria/HPF 4+ HPF (None Seen); Bilirubin Negative (Negative); Blood, Urine Trace (Negative); Glucose, Urine (Dipstick) Normal (Negative); Ketone, Urine Negative (Negative); Leukocyte 500 Leu/uL (Negative); Nitrite Negative (Negative); Protein, Urine (Dipstick) 600 mg/dL (Neg-Trace); Specific Gravity, Urine 1.012 (1.002-1.036); Squamous Epithelial 0-3 HPF (0-3); Urobilinogen Normal mg/dL (Less than 2); WBC/HPF Greater than 50 HPF (0-3); pH, Urine 7.5 (5.0-9.0)
[2022-02-02] MEDS ORDERED: Acetaminophen 650 MG Suppository PR PRN (15:14)
[2022-02-02 15:15] LABS: Clarity Turbid (Clear)
[2022-02-02] MEDS ORDERED: Sodium Chloride 0.9% 1,000 ML IV SCH (15:15)
[2022-02-02 15:16] LABS: ALT (SGPT) 13 U/L (8-55); AST (SGOT) 30 U/L (5-34); Albumin 2.6 g/dL (3.4-4.8); Alkaline Phosphatase 100 U/L (40-110); Anion Gap 14 mmol/L (10-20); BUN (Urea Nitrogen) 47 mg/dL (9.8-20.1); Bilirubin, Total 0.2 mg/dL (0.2-1.2); Calc. Creatinine Clearance 0 mL/min (70-130); Calcium 8.1 mg/dL (7.8-10.44); Carbon Dioxide 17 mmol/L (23-31); Chloride 112 mmol/L (98-107); Globulin 3.4 g/dL (2.4-3.5); Glucose 157 mg/dL (83-110); Potassium 6.3 mmol/L (3.5-5.1); Sodium 137 mmol/L (136-145)
[2022-02-02] MEDS ORDERED: Calcium Gluc 4.6 MEQ/10 ML (100 MG/ML) SLOW IVP ONE (15:27)
[2022-02-02] MEDS ORDERED: Insulin Regular 300 UNITS/3 ML VIAL IVP SCH (15:30)
[2022-02-02] MEDS ORDERED: Dextrose 50% Abboject 50 ML SYRINGE SLOW IVP SCH (15:30)
[2022-02-02] MEDS ORDERED: Piperacillin/Tazobactam 3.375 GM in Sodium Chloride 0.9% 100 ML IVPB SCH ×2 (15:30→18:00)
[2022-02-02] MEDS ORDERED: CALCIUM GLUC 1GM/NS 50ML BAG ONE (15:39)
[2022-02-02] MEDS ORDERED: Dextrose 5% in Water 1,000 ML IV PRN (15:43)
[2022-02-02] MEDS ORDERED: Dextrose 50% Abboject 50 ML SYRINGE SLOW IVP PRN (15:43)
[2022-02-02] MEDS ORDERED: Calcium Gluconate 4.6 MEQ in Sodium Chloride 0.9% 100 ML IVPB SCH (15:45)
[2022-02-02] MEDS ORDERED: Aspirin Chewable 81 MG TAB PO SCH (15:45)
[2022-02-02 17:15] LABS: Actual Bicarbonate (HCO3v) 17 mEq/L (22-28); Base Excess -10.7 mEq/L (-2.0 to +3.0); Calcium, Ionized (venous) 1.18 mmol/L (1.16-1.32); Chloride (VBG) 112 mmol/L (98-106); Hemoglobin (Hb) 9.1 g/dL (11.7-16.1); Potassium (VBG) 6.14 mmol/L (3.70-5.30); Sodium 137.1 mmol/L (133-146)
[2022-02-02 17:50] LABS: Anion Gap 13 mmol/L (10-20); BUN (Urea Nitrogen) 48 mg/dL (9.8-20.1); Calc. Creatinine Clearance 14 mL/min (70-130); Calcium 8.5 mg/dL (7.8-10.44); Carbon Dioxide 17 mmol/L (23-31); Chloride 112 mmol/L (98-107); Glucose 157 mg/dL (83-110); Potassium 6.2 mmol/L (3.5-5.1); Sodium 136 mmol/L (136-145)
[2022-02-02 17:55] LABS: Troponin I 0.104 ng/mL (< 0.028)
[2022-02-02] MEDS ORDERED: Sodium Bicarbonate 75 MEQ in Dextrose 5% in Water 1,000 ML IV SCH (18:00)
[2022-02-02] MEDS: Sodium Bicarbonate 150 MEQ in Dextrose 5% in Water 1,000 ML IV SCH (18:02)
[2022-02-02] MEDS: Sodium Chloride 0.9% 1,000 ML IV SCH (18:20)
[2022-02-02 19:44] LABS: Actual Bicarbonate (HCO3v) 15 mEq/L (22-28); Base Excess -10.1 mEq/L (-2.0 to +3.0); Calcium, Ionized (venous) 1.09 mmol/L (1.16-1.32); Chloride (VBG) 114 mmol/L (98-106); Hemoglobin (Hb) 9.1 g/dL (11.7-16.1); Potassium (VBG) 5.29 mmol/L (3.70-5.30)
[2022-02-02 19:53] LABS: Anion Gap 13 mmol/L (10-20); BUN (Urea Nitrogen) 47 mg/dL (9.8-20.1); Calc. Creatinine Clearance 14 mL/min (70-130); Calcium 8.2 mg/dL (7.8-10.44); Carbon Dioxide 15 mmol/L (23-31); Chloride 112 mmol/L (98-107); Glucose 131 mg/dL (83-110); Potassium 5.4 mmol/L (3.5-5.1); Sodium 135 mmol/L (136-145)
[2022-02-02 20:00] LABS: Troponin I 0.101 ng/mL (< 0.028)
[2022-02-02 20:14] LABS: HBSAB Concentration Less than 8.00 mIU/mL; HBSAg Index 0.25 S/CO (0-0.99); Hep B Surf AB Non-Reactive (NonReactive); Hep B Surf Ag Non-Reactive S/CO (NonReactive)
[2022-02-02] MEDS: Heparin 5,000 UNITS/ML VIAL SC SCH (20:32)
[2022-02-03 01:20] LABS: Anion Gap 13 mmol/L (10-20); BUN (Urea Nitrogen) 47 mg/dL (9.8-20.1); Calc. Creatinine Clearance 14 mL/min (70-130); Calcium 8.1 mg/dL (7.8-10.44); Carbon Dioxide 20 mmol/L (23-31); Chloride 109 mmol/L (98-107); Glucose 110 mg/dL (83-110); Potassium 5.5 mmol/L (3.5-5.1); Sodium 136 mmol/L (136-145)
[2022-02-03 04:43] LABS: ALT (SGPT) 12 U/L (8-55); AST (SGOT) 33 U/L (5-34); Albumin 2.4 g/dL (3.4-4.8); Alkaline Phosphatase 84 U/L (40-110); Anion Gap 12 mmol/L (10-20); BUN (Urea Nitrogen) 47 mg/dL (9.8-20.1); Bilirubin, Total Less than 0.2 mg/dL (0.2-1.2); Calc. Creatinine Clearance 14 mL/min (70-130); Calcium 7.8 mg/dL (7.8-10.44); Carbon Dioxide 21 mmol/L (23-31); Chloride 108 mmol/L (98-107); Globulin 2.9 g/dL (2.4-3.5); Glucose 107 mg/dL (83-110); Potassium 5.3 mmol/L (3.5-5.1); Protein, Total 5.3 g/dL (5.8-8.1); Sodium 136 mmol/L (136-145)
[2022-02-03] MEDS: Sodium Bicarbonate 150 MEQ in Dextrose 5% in Water 1,000 ML IV SCH (05:08)
[2022-02-03] MEDS: Piperacillin/Tazobactam 3.375 GM in Sodium Chloride 0.9% 100 ML IVPB SCH ×2 (05:13→16:59)
[2022-02-03] MEDS ORDERED: Heparin 10,000 UNITS/ 10 ML VIAL ONE ×2 (08:53→16:00)
[2022-02-03] MEDS: Heparin 5,000 UNITS/ML VIAL SC SCH ×2 (09:58→21:47)
[2022-02-03] MEDS: Sodium Chloride 0.9% 1,000 ML IV SCH (09:58)
[2022-02-03] MEDS ORDERED: Furosemide 40 MG/4 ML VIAL SLOW IVP SCH (10:30)
[2022-02-03] MEDS ORDERED: Artificial Tear Sol 15 ML BOT EA EYE PRN (10:35)
[2022-02-03] MEDS ORDERED: Calcium Carbonate 500 MG ChewTAB PO PRN (10:35)
[2022-02-03] MEDS ORDERED: Ondansetron PF 4 MG/2 ML Vial IVP PRN (10:35)
[2022-02-03] MEDS ORDERED: Sodium Chloride 0.65% Nasal 44 ML BOT EA NARE PRN (10:35)
[2022-02-03] MEDS ORDERED: Moisturizing Cream (Eucerin) 113 GM JAR TOP PRN (10:35)
[2022-02-03] MEDS ORDERED: Bisacodyl 10 MG SUPP PR PRN (10:35)
[2022-02-03] MEDS: hydrALAZINE 20 MG/ML VIAL SLOW IVP PRN ×2 (13:00→17:34)
[2022-02-03 13:18] LABS: Anion Gap 14 mmol/L (10-20); BUN (Urea Nitrogen) 12 mg/dL (9.8-20.1); Calc. Creatinine Clearance 42 mL/min (70-130); Calcium 7.8 mg/dL (7.8-10.44); Carbon Dioxide 27 mmol/L (23-31); Chloride 97 mmol/L (98-107); Glucose 123 mg/dL (83-110); Potassium 3.5 mmol/L (3.5-5.1); Sodium 134 mmol/L (136-145)
[2022-02-03] MEDS ORDERED: Vancomycin 1.5 GRAM/300 ML BAG 1.5 GM in Premix Bag 1 BAG IVPB SCH (14:00)
[2022-02-03] MEDS ORDERED: Amlodipine 5 MG TAB PO SCH (15:00)
[2022-02-03] MEDS ORDERED: hydrALAZINE 25 MG TAB PO SCH (15:00)
[2022-02-03] MEDS: hydrALAZINE 25 MG TAB PO SCH (21:33)
[2022-02-03] MEDS: Ezetimibe 10 MG TAB PO SCH (21:33)
[2022-02-03] MEDS: Simvastatin 10 MG TAB PO SCH (21:34)
[2022-02-04 03:53] LABS: #Eosinphils 0.1 thou/uL (0.0-0.7); #Lymphocytes 1.4 thou/uL (1.20-3.40); #Monocytes 0.5 thou/uL (0.11-0.59); #Neutrophils 9.1 thou/uL (1.40-6.50); %Basophils 0.4 % (0.0-1.0); %Eosinophils 0.7 % (0.0-10.0); %Lymphocytes 12.4 % (21.0-51.0); %Monocytes 4.6 % (0.0-10.0); Hemoglobin 9.2 g/dL (12.0-16.0); Mean Corpuscular HGB CONC 31.3 g/dL (32.0-36.0); Mean Corpuscular Hemoglobin 29.2 pg (27.0-31.0); Mean Corpuscular Volume 93.3 fL (78.0-98.0); Platelet Count 314 thou/uL (130-400); RBC Distribution Width 14.3 % (11.5-14.5); Red Blood Cell (RBC) Count 3.15 mill/uL (4.20-5.40); White Blood Cell (WBC) Count 11.1 thou/uL (4.8-10.8)
[2022-02-04 04:17] LABS: Lactic Acid 0.5 mmol/L (0.5-2.2)
[2022-02-04 04:41] LABS: ALT (SGPT) 12 U/L (8-55); AST (SGOT) 25 U/L (5-34); Albumin 2.1 g/dL (3.4-4.8); Alkaline Phosphatase 78 U/L (40-110); Anion Gap 10 mmol/L (10-20); BUN (Urea Nitrogen) 15 mg/dL (9.8-20.1); Bilirubin, Total 0.2 mg/dL (0.2-1.2); Calc. Creatinine Clearance 29 mL/min (70-130); Calcium 7.6 mg/dL (7.8-10.44); Carbon Dioxide 28 mmol/L (23-31); Chloride 102 mmol/L (98-107); Globulin 2.9 g/dL (2.4-3.5); Glucose 92 mg/dL (83-110); Magnesium 1.7 mg/dL (1.6-2.6); Sodium 137 mmol/L (136-145)
[2022-02-04] MEDS: Piperacillin/Tazobactam 3.375 GM in Sodium Chloride 0.9% 100 ML IVPB SCH ×3 (05:43→21:39)
[2022-02-04] MEDS ORDERED: Potassium Chloride 20 MEQ TAB PO SCH (07:30)
[2022-02-04] MEDS: Heparin 5,000 UNITS/ML VIAL SC SCH ×2 (07:56→21:05)
[2022-02-04] MEDS: hydrALAZINE 25 MG TAB PO SCH ×3 (07:56→21:04)
[2022-02-04] MEDS ORDERED: Amlodipine 5 MG TAB PO SCH (09:00)
[2022-02-04] MEDS ORDERED: Potassium Chloride 10 MEQ TAB PO SCH (09:30)
[2022-02-04] MEDS ORDERED: Furosemide 40 MG/4 ML VIAL SLOW IVP SCH (09:30)
[2022-02-04] MEDS: Furosemide 40 MG/4 ML VIAL SLOW IVP SCH (14:07)
[2022-02-04 16:50] LABS: Vancomycin, Random 27.1 ug/mL (See Comment)
[2022-02-04] MEDS: Ezetimibe 10 MG TAB PO SCH (21:04)
[2022-02-04] MEDS: Simvastatin 10 MG TAB PO SCH (21:04)
[2022-02-05] MEDS: hydrALAZINE 20 MG/ML VIAL SLOW IVP PRN (03:31)
[2022-02-05] MEDS: Furosemide 40 MG/4 ML VIAL SLOW IVP SCH (05:41)
[2022-02-05] MEDS: Piperacillin/Tazobactam 3.375 GM in Sodium Chloride 0.9% 100 ML IVPB SCH ×3 (05:41→20:19)
[2022-02-05 06:48] LABS: Hemoglobin 10.9 g/dL (12.0-16.0); Mean Corpuscular HGB CONC 31.1 g/dL (32.0-36.0); Mean Corpuscular Hemoglobin 29.2 pg (27.0-31.0); Mean Corpuscular Volume 94.1 fL (78.0-98.0); Mean Platelet Volume 7.4 fL (7.4-10.4); Platelet Count 341 thou/uL (130-400); RBC Distribution Width 14.4 % (11.5-14.5); Red Blood Cell (RBC) Count 3.71 mill/uL (4.20-5.40); White Blood Cell (WBC) Count 10.3 thou/uL (4.8-10.8)
[2022-02-05 07:07] LABS: ALT (SGPT) 13 U/L (8-55); AST (SGOT) 18 U/L (5-34); Albumin 2.3 g/dL (3.4-4.8); Alkaline Phosphatase 86 U/L (40-110); Anion Gap 12 mmol/L (10-20); BUN (Urea Nitrogen) 18 mg/dL (9.8-20.1); Bilirubin, Total 0.3 mg/dL (0.2-1.2); Calc. Creatinine Clearance 24 mL/min (70-130); Calcium 7.8 mg/dL (7.8-10.44); Carbon Dioxide 27 mmol/L (23-31); Chloride 107 mmol/L (98-107); Globulin 3.3 g/dL (2.4-3.5); Glucose 118 mg/dL (83-110); Potassium 3.1 mmol/L (3.5-5.1); Protein, Total 5.6 g/dL (5.8-8.1); Sodium 143 mmol/L (136-145)
[2022-02-05 08:01] LABS: Band 17 % (5-11); Eosinophils 3 % (0-10); Hypochromia SLIGHT = 6-15 cells (100X) (0-5/hpf); Lymphocytes 21 % (21-51); MDiff Complete? YES; Monocytes 6 % (0-10); Neutrophil 50 % (42-75); Platelet Morphology Comment Appears Adequate; Polychromasia SLIGHT = 2-3 cells (100X) (0-2/hpf); Reactive Lymphocytes 1 % (0-10)
[2022-02-05] MEDS ORDERED: GUAIFENESIN SF SOLN 200 MG/10 ML UDCUP PO PRN (08:28)
[2022-02-05] MEDS ORDERED: Cepastat Lozenges 1 LOZ PO PRN (08:28)
[2022-02-05] MEDS ORDERED: Potassium Chloride 20 MEQ TAB PO SCH (08:30)
[2022-02-05] MEDS: Heparin 5,000 UNITS/ML VIAL SC SCH ×2 (08:55→20:19)
[2022-02-05] MEDS: hydrALAZINE 25 MG TAB PO SCH ×3 (08:55→20:19)
[2022-02-05] MEDS: Amlodipine 10 MG TAB PO SCH (08:55)
[2022-02-05] MEDS ORDERED: Furosemide 40 MG/4 ML VIAL SLOW IVP SCH ×2 (11:15→14:00)
[2022-02-05] MEDS: Insulin Regular 300 UNITS/3 ML VIAL SC PRN (12:36)
[2022-02-05 17:54] LABS: Vancomycin, Random 21.3 ug/mL (See Comment)
[2022-02-05] MEDS: Ezetimibe 10 MG TAB PO SCH (20:19)
[2022-02-05] MEDS: Simvastatin 10 MG TAB PO SCH (20:19)
[2022-02-06 04:25] LABS: #Basophils 0.1 thou/uL (0.0-0.2); #Eosinphils 0.2 thou/uL (0.0-0.7); #Lymphocytes 1.8 thou/uL (1.20-3.40); #Monocytes 0.7 thou/uL (0.11-0.59); #Neutrophils 6.6 thou/uL (1.40-6.50); %Basophils 0.5 % (0.0-1.0); %Eosinophils 2.4 % (0.0-10.0); %Lymphocytes 19.6 % (21.0-51.0); %Monocytes 7.2 % (0.0-10.0); %Neutrophils 70.3 % (42.0-75.0); Hemoglobin 10.4 g/dL (12.0-16.0); Mean Corpuscular HGB CONC 30.6 g/dL (32.0-36.0); Mean Corpuscular Hemoglobin 28.9 pg (27.0-31.0); Mean Corpuscular Volume 94.5 fL (78.0-98.0); Mean Platelet Volume 6.8 fL (7.4-10.4); Platelet Count 328 thou/uL (130-400); RBC Distribution Width 14.5 % (11.5-14.5); Red Blood Cell (RBC) Count 3.59 mill/uL (4.20-5.40); White Blood Cell (WBC) Count 9.4 thou/uL (4.8-10.8)
[2022-02-06] MEDS: hydrALAZINE 20 MG/ML VIAL SLOW IVP PRN (04:54)
[2022-02-06] MEDS: Piperacillin/Tazobactam 3.375 GM in Sodium Chloride 0.9% 100 ML IVPB SCH ×2 (04:54→17:07)
[2022-02-06 05:45] LABS: Albumin 2.2 g/dL (3.4-4.8)
[2022-02-06 05:46] LABS: Calcium 7.8 mg/dL (7.8-10.44); Chloride 108 mmol/L (98-107); Globulin 3.1 g/dL (2.4-3.5); Glucose 111 mg/dL (83-110); Potassium 3.5 mmol/L (3.5-5.1); Protein, Total 5.3 g/dL (5.8-8.1); Sodium 142 mmol/L (136-145)
[2022-02-06 05:47] LABS: Alkaline Phosphatase 75 U/L (40-110); Anion Gap 11 mmol/L (10-20); Bilirubin, Total 0.3 mg/dL (0.2-1.2); Carbon Dioxide 27 mmol/L (23-31)
[2022-02-06 06:33] LABS: Vancomycin, Random 20.2 ug/mL (See Comment)
[2022-02-06 07:20] LABS: ALT (SGPT) 11 U/L (8-55); AST (SGOT) 13 U/L (5-34); BUN (Urea Nitrogen) 22 mg/dL (9.8-20.1); Calc. Creatinine Clearance 17 mL/min (70-130)
[2022-02-06] MEDS: Amlodipine 10 MG TAB PO SCH (09:29)
[2022-02-06] MEDS: hydrALAZINE 25 MG TAB PO SCH ×5 (09:29→20:50)
[2022-02-06] MEDS: Heparin 5,000 UNITS/ML VIAL SC SCH ×2 (09:30→20:50)
[2022-02-06] MEDS: Labetalol HCl 100 MG/20 ML VIAL SLOW IVP PRN (09:34)
[2022-02-06] MEDS ORDERED: Furosemide 40 MG/4 ML VIAL SLOW IVP SCH (11:00)
[2022-02-06] MEDS ORDERED: Potassium Chloride 20 MEQ TAB PO SCH (11:00)
[2022-02-06] MEDS: traZODone HCl 50 MG TAB PO SCH (20:50)
[2022-02-06] MEDS: Ezetimibe 10 MG TAB PO SCH (20:50)
[2022-02-06] MEDS: Simvastatin 10 MG TAB PO SCH (20:50)
[2022-02-07] MEDS: hydrALAZINE 20 MG/ML VIAL SLOW IVP PRN (03:37)
[2022-02-07] MEDS: Piperacillin/Tazobactam 3.375 GM in Sodium Chloride 0.9% 100 ML IVPB SCH ×2 (05:45→16:02)
[2022-02-07] MEDS: Heparin 5,000 UNITS/ML VIAL SC SCH ×2 (10:00→21:10)
[2022-02-07] MEDS: hydrALAZINE 25 MG TAB PO SCH ×3 (10:00→21:11)
[2022-02-07] MEDS: Amlodipine 10 MG TAB PO SCH (10:01)
[2022-02-07] MEDS: Labetalol HCl 100 MG TAB PO SCH ×2 (10:01→21:10)
[2022-02-07 11:18] LABS: ALT (SGPT) 9 U/L (8-55); AST (SGOT) 10 U/L (5-34); Albumin 2.1 g/dL (3.4-4.8); Alkaline Phosphatase 76 U/L (40-110); Anion Gap 13 mmol/L (10-20); BUN (Urea Nitrogen) 25 mg/dL (9.8-20.1); Bilirubin, Total 0.3 mg/dL (0.2-1.2); Calc. Creatinine Clearance 16 mL/min (70-130); Calcium 7.9 mg/dL (7.8-10.44); Carbon Dioxide 25 mmol/L (23-31); Chloride 109 mmol/L (98-107); Globulin 3.1 g/dL (2.4-3.5); Glucose 230 mg/dL (83-110); Potassium 3.7 mmol/L (3.5-5.1); Protein, Total 5.2 g/dL (5.8-8.1); Sodium 143 mmol/L (136-145)
[2022-02-07] MEDS: Insulin Regular 300 UNITS/3 ML VIAL SC PRN (12:38)
[2022-02-07] MEDS: Simvastatin 10 MG TAB PO SCH (21:10)
[2022-02-07] MEDS: Ezetimibe 10 MG TAB PO SCH (21:11)
[2022-02-07] MEDS: traZODone HCl 50 MG TAB PO SCH (21:11)
[2022-02-08] MEDS: Piperacillin/Tazobactam 3.375 GM in Sodium Chloride 0.9% 100 ML IVPB SCH ×2 (05:43→15:52)
[2022-02-08 09:06] LABS: Anion Gap 11 mmol/L (10-20); BUN (Urea Nitrogen) 27 mg/dL (9.8-20.1); Calc. Creatinine Clearance 16 mL/min (70-130); Carbon Dioxide 25 mmol/L (23-31); Chloride 111 mmol/L (98-107); Glucose 175 mg/dL (83-110); Potassium 3.3 mmol/L (3.5-5.1); Sodium 144 mmol/L (136-145)
[2022-02-08] MEDS: hydrALAZINE 25 MG TAB PO SCH ×3 (09:06→21:04)
[2022-02-08] MEDS: Amlodipine 10 MG TAB PO SCH (09:06)
[2022-02-08] MEDS: Labetalol HCl 100 MG TAB PO SCH ×2 (09:07→21:04)
[2022-02-08] MEDS: Heparin 5,000 UNITS/ML VIAL SC SCH ×2 (09:07→21:05)
[2022-02-08 09:43] LABS: #Basophils 0.1 thou/uL (0.0-0.2); #Eosinphils 0.3 thou/uL (0.0-0.7); #Lymphocytes 2.5 thou/uL (1.20-3.40); #Monocytes 0.8 thou/uL (0.11-0.59); #Neutrophils 7.6 thou/uL (1.40-6.50); %Basophils 0.6 % (0.0-1.0); %Lymphocytes 21.8 % (21.0-51.0); %Monocytes 6.9 % (0.0-10.0); %Neutrophils 67.7 % (42.0-75.0); Hemoglobin 9.7 g/dL (12.0-16.0); Mean Corpuscular Hemoglobin 28.2 pg (27.0-31.0); Mean Corpuscular Volume 93.9 fL (78.0-98.0); Platelet Count 298 thou/uL (130-400); RBC Distribution Width 13.9 % (11.5-14.5); Red Blood Cell (RBC) Count 3.43 mill/uL (4.20-5.40); White Blood Cell (WBC) Count 11.2 thou/uL (4.8-10.8)
[2022-02-08] MEDS ORDERED: Potassium Chloride 20 MEQ TAB PO SCH (10:15)
[2022-02-08 10:45] LABS: Hypochromia SLIGHT = 6-15 cells (100X) (0-5/hpf); Polychromasia SLIGHT = 2-3 cells (100X) (0-2/hpf)
[2022-02-08] MEDS: Ezetimibe 10 MG TAB PO SCH (21:04)
[2022-02-08] MEDS: Simvastatin 10 MG TAB PO SCH (21:04)
[2022-02-08] MEDS: Acetaminophen 325 MG TAB PO PRN (21:04)
[2022-02-08] MEDS: traZODone HCl 50 MG TAB PO SCH (21:05)
[2022-02-09] MEDS: hydrALAZINE 20 MG/ML VIAL SLOW IVP PRN (04:03)
[2022-02-09 04:25] LABS: #Eosinphils 0.3 thou/uL (0.0-0.7); #Lymphocytes 2.7 thou/uL (1.20-3.40); #Monocytes 0.8 thou/uL (0.11-0.59); #Neutrophils 6.9 thou/uL (1.40-6.50); %Basophils 0.3 % (0.0-1.0); %Eosinophils 2.7 % (0.0-10.0); %Lymphocytes 25.1 % (21.0-51.0); Hemoglobin 9.3 g/dL (12.0-16.0); Mean Corpuscular HGB CONC 31.5 g/dL (32.0-36.0); Mean Corpuscular Volume 95.1 fL (78.0-98.0); Mean Platelet Volume 7.5 fL (7.4-10.4); Platelet Count 295 thou/uL (130-400); Red Blood Cell (RBC) Count 3.12 mill/uL (4.20-5.40); White Blood Cell (WBC) Count 10.6 thou/uL (4.8-10.8)
[2022-02-09 04:49] LABS: Anion Gap 12 mmol/L (10-20); BUN (Urea Nitrogen) 29 mg/dL (9.8-20.1); Calc. Creatinine Clearance 14 mL/min (70-130); Calcium 7.9 mg/dL (7.8-10.44); Carbon Dioxide 24 mmol/L (23-31); Chloride 111 mmol/L (98-107); Glucose 175 mg/dL (83-110); Potassium 3.5 mmol/L (3.5-5.1); Sodium 143 mmol/L (136-145)
[2022-02-09] MEDS: Piperacillin/Tazobactam 3.375 GM in Sodium Chloride 0.9% 100 ML IVPB SCH (05:31)
[2022-02-09] MEDS: Heparin 5,000 UNITS/ML VIAL SC SCH ×2 (10:22→21:09)
[2022-02-09] MEDS: Amlodipine 10 MG TAB PO SCH (10:22)
[2022-02-09] MEDS: Labetalol HCl 100 MG TAB PO SCH ×2 (10:23→22:13)
[2022-02-09] MEDS: hydrALAZINE 25 MG TAB PO SCH ×3 (10:23→21:09)
[2022-02-09] MEDS: Ezetimibe 10 MG TAB PO SCH (21:09)
[2022-02-09] MEDS: traZODone HCl 50 MG TAB PO SCH (21:12)
[2022-02-09] MEDS: Simvastatin 10 MG TAB PO SCH (21:25)
[2022-02-09] MEDS: Amoxicillin/Potassium Clav 500 MG TAB PO SCH (22:13)
[2022-02-10] MEDS: Insulin Regular 300 UNITS/3 ML VIAL SC PRN ×2 (06:06→20:54)
[2022-02-10] MEDS: Labetalol HCl 100 MG/20 ML VIAL SLOW IVP PRN (06:16)
[2022-02-10 07:22] LABS: Anion Gap 15 mmol/L (10-20); BUN (Urea Nitrogen) 33 mg/dL (9.8-20.1); Calc. Creatinine Clearance 14 mL/min (70-130); Calcium 7.8 mg/dL (7.8-10.44); Carbon Dioxide 20 mmol/L (23-31); Chloride 112 mmol/L (98-107); Glucose 187 mg/dL (83-110); Potassium 3.3 mmol/L (3.5-5.1); Sodium 144 mmol/L (136-145)
[2022-02-10] MEDS ORDERED: Potassium Chloride 20 MEQ TAB PO SCH (10:45)
[2022-02-10] MEDS: hydrALAZINE 25 MG TAB PO SCH ×3 (10:46→20:52)
[2022-02-10] MEDS: NIFEdipine XL 60 MG TAB PO SCH (10:47)
[2022-02-10] MEDS: Labetalol HCl 100 MG TAB PO SCH ×2 (10:51→20:52)
[2022-02-10] MEDS: Heparin 5,000 UNITS/ML VIAL SC SCH ×2 (10:54→20:52)
[2022-02-10] MEDS: Ondansetron ODT 4 MG TAB SL PRN (13:52)
[2022-02-10] MEDS: Amoxicillin/Potassium Clav 500 MG TAB PO SCH (20:51)
[2022-02-10] MEDS: traZODone HCl 50 MG TAB PO SCH (20:52)
[2022-02-10] MEDS: Ezetimibe 10 MG TAB PO SCH (20:52)
[2022-02-10] MEDS: Simvastatin 10 MG TAB PO SCH (22:46)
[2022-02-11 06:58] LABS: Anion Gap 12 mmol/L (10-20); BUN (Urea Nitrogen) 37 mg/dL (9.8-20.1); Calc. Creatinine Clearance 14 mL/min (70-130); Calcium 7.7 mg/dL (7.8-10.44); Carbon Dioxide 23 mmol/L (23-31); Chloride 111 mmol/L (98-107); Glucose 211 mg/dL (83-110); Sodium 142 mmol/L (136-145)
[2022-02-11] MEDS: hydrALAZINE 25 MG TAB PO SCH ×3 (09:36→20:41)
[2022-02-11] MEDS: NIFEdipine XL 60 MG TAB PO SCH (09:36)
[2022-02-11] MEDS: Labetalol HCl 100 MG TAB PO SCH ×2 (09:41→20:40)
[2022-02-11] MEDS: Heparin 5,000 UNITS/ML VIAL SC SCH ×2 (09:41→20:42)
[2022-02-11] MEDS: Ondansetron ODT 4 MG TAB SL PRN ×2 (09:42→15:11)
[2022-02-11] MEDS: Amoxicillin/Potassium Clav 500 MG TAB PO SCH (20:40)
[2022-02-11] MEDS: Simvastatin 10 MG TAB PO SCH (20:40)
[2022-02-11] MEDS: traZODone HCl 50 MG TAB PO SCH (20:41)
[2022-02-11] MEDS: Ezetimibe 10 MG TAB PO SCH (20:41)
[2022-02-12] MEDS: Insulin Regular 300 UNITS/3 ML VIAL SC PRN ×2 (06:13→14:57)
[2022-02-12 06:23] LABS: Anion Gap 12 mmol/L (10-20); BUN (Urea Nitrogen) 43 mg/dL (9.8-20.1); Calc. Creatinine Clearance 13 mL/min (70-130); Calcium 7.5 mg/dL (7.8-10.44); Carbon Dioxide 23 mmol/L (23-31); Chloride 111 mmol/L (98-107); Glucose 292 mg/dL (83-110); Potassium 4.2 mmol/L (3.5-5.1); Sodium 142 mmol/L (136-145)
[2022-02-12] MEDS: hydrALAZINE 25 MG TAB PO SCH ×3 (08:48→21:34)
[2022-02-12] MEDS: Labetalol HCl 100 MG TAB PO SCH ×2 (08:48→21:35)
[2022-02-12] MEDS: NIFEdipine XL 60 MG TAB PO SCH (08:48)
[2022-02-12] MEDS: Heparin 5,000 UNITS/ML VIAL SC SCH ×2 (08:49→21:36)
[2022-02-12] MEDS ORDERED: Heparin 10,000 UNITS/ 10 ML VIAL ONE (10:01)
[2022-02-12] MEDS ORDERED: Furosemide 20 MG/2 ML VIAL SLOW IVP SCH (12:15)
[2022-02-12] MEDS: Ezetimibe 10 MG TAB PO SCH (21:36)
[2022-02-12] MEDS: Simvastatin 10 MG TAB PO SCH (21:36)
[2022-02-12] MEDS: Amoxicillin/Potassium Clav 500 MG TAB PO SCH (21:36)
[2022-02-12] MEDS: traZODone HCl 50 MG TAB PO SCH (21:39)
[2022-02-13 06:41] LABS: Anion Gap 10 mmol/L (10-20); BUN (Urea Nitrogen) 23 mg/dL (9.8-20.1); Calc. Creatinine Clearance 20 mL/min (70-130); Calcium 7.2 mg/dL (7.8-10.44); Carbon Dioxide 28 mmol/L (23-31); Chloride 104 mmol/L (98-107); Glucose 115 mg/dL (83-110); Potassium 3.3 mmol/L (3.5-5.1); Sodium 139 mmol/L (136-145)
[2022-02-13] MEDS: hydrALAZINE 25 MG TAB PO SCH ×3 (08:20→21:20)
[2022-02-13] MEDS: NIFEdipine XL 60 MG TAB PO SCH (08:20)
[2022-02-13] MEDS: Labetalol HCl 100 MG TAB PO SCH ×2 (08:20→21:20)
[2022-02-13] MEDS: Heparin 5,000 UNITS/ML VIAL SC SCH ×2 (08:20→21:23)
[2022-02-13] MEDS: Ondansetron ODT 4 MG TAB SL PRN (14:04)
[2022-02-13] MEDS: Loperamide HCl 2 MG CAP PO PRN (21:20)
[2022-02-13] MEDS: Amoxicillin/Potassium Clav 500 MG TAB PO SCH (21:20)
[2022-02-13] MEDS: Simvastatin 10 MG TAB PO SCH (21:20)
[2022-02-13] MEDS: traZODone HCl 50 MG TAB PO SCH (21:20)
[2022-02-13] MEDS: Ezetimibe 10 MG TAB PO SCH (21:20)
[2022-02-14] MEDS: Insulin Regular 300 UNITS/3 ML VIAL SC PRN (06:13)
[2022-02-14] MEDS: Heparin 5,000 UNITS/ML VIAL SC SCH ×2 (08:52→20:29)
[2022-02-14] MEDS: Labetalol HCl 100 MG TAB PO SCH ×2 (08:52→20:34)
[2022-02-14] MEDS: NIFEdipine XL 60 MG TAB PO SCH (08:52)
[2022-02-14] MEDS: hydrALAZINE 25 MG TAB PO SCH ×3 (08:52→20:30)
[2022-02-14] MEDS ORDERED: Heparin 10,000 UNITS/ 10 ML VIAL ONE (10:51)
[2022-02-14] MEDS ORDERED: Furosemide 40 MG/4 ML VIAL SLOW IVP SCH (13:45)
[2022-02-14] MEDS: Ezetimibe 10 MG TAB PO SCH (20:30)
[2022-02-14] MEDS: Simvastatin 10 MG TAB PO SCH (20:34)
[2022-02-14] MEDS: Ondansetron ODT 4 MG TAB SL PRN (20:43)
[2022-02-15] MEDS: Acetaminophen 325 MG TAB PO PRN (04:46)
[2022-02-15] MEDS: Ondansetron ODT 4 MG TAB SL PRN (04:46)
[2022-02-15] MEDS: Loperamide HCl 2 MG CAP PO PRN (04:46)
[2022-02-15] MEDS: Insulin Regular 300 UNITS/3 ML VIAL SC PRN ×2 (05:56→20:00)
[2022-02-15] MEDS: Labetalol HCl 100 MG TAB PO SCH ×2 (08:22→23:29)
[2022-02-15] MEDS: hydrALAZINE 25 MG TAB PO SCH ×2 (08:23→14:53)
[2022-02-15] MEDS: Heparin 5,000 UNITS/ML VIAL SC SCH ×2 (08:24→20:00)
[2022-02-15] MEDS: NIFEdipine XL 60 MG TAB PO SCH (08:24)
[2022-02-15 15:25] LABS: Anion Gap 9 mmol/L (10-20); BUN (Urea Nitrogen) 18 mg/dL (9.8-20.1); Calc. Creatinine Clearance 18 mL/min (70-130); Calcium 7.3 mg/dL (7.8-10.44); Carbon Dioxide 29 mmol/L (23-31); Chloride 101 mmol/L (98-107); Estimated GFR 26; Glucose 182 mg/dL (83-110); Potassium 3.1 mmol/L (3.5-5.1); Sodium 136 mmol/L (136-145)
[2022-02-15] MEDS: Ezetimibe 10 MG TAB PO SCH (20:00)
[2022-02-15] MEDS: Simvastatin 10 MG TAB PO SCH (20:00)
[2022-02-16] MEDS ORDERED: Heparin 10,000 UNITS/ 10 ML VIAL ONE (09:45)
[2022-02-16] MEDS: Labetalol HCl 100 MG TAB PO SCH ×2 (09:47→20:12)
[2022-02-16] MEDS: Heparin 5,000 UNITS/ML VIAL SC SCH ×2 (09:48→20:15)
[2022-02-16] MEDS: NIFEdipine XL 60 MG TAB PO SCH (09:48)
[2022-02-16] MEDS: Simvastatin 10 MG TAB PO SCH (20:14)
[2022-02-16] MEDS: Ezetimibe 10 MG TAB PO SCH (20:14)
[2022-02-17] MEDS: Insulin Regular 300 UNITS/3 ML VIAL SC PRN ×2 (05:53→16:58)
[2022-02-17] MEDS: NIFEdipine XL 60 MG TAB PO SCH (08:44)
[2022-02-17] MEDS: Labetalol HCl 100 MG TAB PO SCH ×2 (08:44→20:23)
[2022-02-17] MEDS: Heparin 5,000 UNITS/ML VIAL SC SCH ×2 (08:44→20:27)
[2022-02-17 11:06] LABS: #Basophils 0.1 thou/uL (0.0-0.2); #Eosinphils 0.3 thou/uL (0.0-0.7); #Lymphocytes 1.9 thou/uL (1.20-3.40); %Basophils 0.7 % (0.0-1.0); %Eosinophils 2.3 % (0.0-10.0); %Lymphocytes 16.6 % (21.0-51.0); %Monocytes 8.8 % (0.0-10.0); %Neutrophils 71.6 % (42.0-75.0); Hemoglobin 7.4 g/dL (12.0-16.0); Mean Corpuscular HGB CONC 30.6 g/dL (32.0-36.0); Mean Corpuscular Volume 94.5 fL (78.0-98.0); Mean Platelet Volume 7.2 fL (7.4-10.4); Platelet Count 365 thou/uL (130-400); RBC Distribution Width 13.8 % (11.5-14.5); Red Blood Cell (RBC) Count 2.56 mill/uL (4.20-5.40); White Blood Cell (WBC) Count 11.2 thou/uL (4.8-10.8)
[2022-02-17 11:23] LABS: Anion Gap 10 mmol/L (10-20); BUN (Urea Nitrogen) 15 mg/dL (9.8-20.1); Calc. Creatinine Clearance 18 mL/min (70-130); Calcium 7.1 mg/dL (7.8-10.44); Carbon Dioxide 30 mmol/L (23-31); Chloride 102 mmol/L (98-107); Estimated GFR 26; Glucose 92 mg/dL (83-110); Potassium 4.2 mmol/L (3.5-5.1); Sodium 138 mmol/L (136-145)
[2022-02-17] MEDS: Ezetimibe 10 MG TAB PO SCH (20:24)
[2022-02-17] MEDS: Simvastatin 10 MG TAB PO SCH (20:27)
[2022-02-18] MEDS: Insulin Regular 300 UNITS/3 ML VIAL SC PRN (05:15)
[2022-02-18 07:13] LABS: #Eosinphils 0.3 thou/uL (0.0-0.7); #Lymphocytes 2.4 thou/uL (1.20-3.40); #Monocytes 0.9 thou/uL (0.11-0.59); #Neutrophils 6.3 thou/uL (1.40-6.50); %Basophils 0.4 % (0.0-1.0); %Eosinophils 2.8 % (0.0-10.0); %Lymphocytes 24.5 % (21.0-51.0); %Neutrophils 63.3 % (42.0-75.0); Anion Gap 11 mmol/L (10-20); BUN (Urea Nitrogen) 21 mg/dL (9.8-20.1); Calc. Creatinine Clearance 13 mL/min (70-130); Calcium 7.4 mg/dL (7.8-10.44); Carbon Dioxide 30 mmol/L (23-31); Chloride 101 mmol/L (98-107); Estimated GFR 19; Glucose 118 mg/dL (83-110); Hemoglobin 7.1 g/dL (12.0-16.0); Mean Corpuscular HGB CONC 30.5 g/dL (32.0-36.0); Mean Corpuscular Hemoglobin 28.9 pg (27.0-31.0); Mean Corpuscular Volume 94.9 fL (78.0-98.0); Mean Platelet Volume 7.2 fL (7.4-10.4); Platelet Count 384 thou/uL (130-400); Potassium 4.3 mmol/L (3.5-5.1); RBC Distribution Width 13.6 % (11.5-14.5); Red Blood Cell (RBC) Count 2.47 mill/uL (4.20-5.40); Sodium 138 mmol/L (136-145); White Blood Cell (WBC) Count 9.9 thou/uL (4.8-10.8)
[2022-02-18] MEDS: NIFEdipine XL 60 MG TAB PO SCH (08:09)
[2022-02-18] MEDS: Labetalol HCl 100 MG TAB PO SCH ×2 (08:09→20:30)
[2022-02-18] MEDS: Heparin 5,000 UNITS/ML VIAL SC SCH ×2 (08:10→20:33)
[2022-02-18] MEDS: Ezetimibe 10 MG TAB PO SCH (20:30)
[2022-02-18] MEDS: Simvastatin 10 MG TAB PO SCH (20:31)
[2022-02-19 06:09] LABS: #Eosinphils 0.3 thou/uL (0.0-0.7); #Lymphocytes 2.2 thou/uL (1.20-3.40); #Monocytes 0.9 thou/uL (0.11-0.59); #Neutrophils 6.3 thou/uL (1.40-6.50); %Basophils 0.1 % (0.0-1.0); %Eosinophils 2.8 % (0.0-10.0); %Lymphocytes 22.4 % (21.0-51.0); %Monocytes 9.8 % (0.0-10.0); Hemoglobin 7.8 g/dL (12.0-16.0); Mean Corpuscular HGB CONC 32.1 g/dL (32.0-36.0); Mean Corpuscular Hemoglobin 29.9 pg (27.0-31.0); Mean Corpuscular Volume 93.2 fL (78.0-98.0); Mean Platelet Volume 7.2 fL (7.4-10.4); Platelet Count 420 thou/uL (130-400); RBC Distribution Width 13.4 % (11.5-14.5); Red Blood Cell (RBC) Count 2.59 mill/uL (4.20-5.40); White Blood Cell (WBC) Count 9.6 thou/uL (4.8-10.8)
[2022-02-19 06:26] LABS: Anion Gap 13 mmol/L (10-20); BUN (Urea Nitrogen) 26 mg/dL (9.8-20.1); Calc. Creatinine Clearance 11 mL/min (70-130); Calcium 7.4 mg/dL (7.8-10.44); Carbon Dioxide 29 mmol/L (23-31); Chloride 100 mmol/L (98-107); Estimated GFR 15; Glucose 150 mg/dL (83-110); Potassium 4.7 mmol/L (3.5-5.1); Sodium 137 mmol/L (136-145)
[2022-02-19] MEDS ORDERED: Heparin 10,000 UNITS/ 10 ML VIAL ONE (09:50)
[2022-02-19] MEDS: Heparin 5,000 UNITS/ML VIAL SC SCH ×2 (10:53→21:50)
[2022-02-19] MEDS: Labetalol HCl 100 MG TAB PO SCH ×2 (11:30→21:49)
[2022-02-19] MEDS: NIFEdipine XL 60 MG TAB PO SCH (14:46)
[2022-02-19] MEDS: Ezetimibe 10 MG TAB PO SCH (21:48)
[2022-02-19] MEDS: Simvastatin 10 MG TAB PO SCH (21:48)
[2022-02-20 06:21] LABS: #Eosinphils 0.2 thou/uL (0.0-0.7); #Lymphocytes 1.8 thou/uL (1.20-3.40); #Monocytes 0.9 thou/uL (0.11-0.59); #Neutrophils 6.2 thou/uL (1.40-6.50); %Basophils 0.3 % (0.0-1.0); %Eosinophils 2.5 % (0.0-10.0); %Monocytes 9.5 % (0.0-10.0); %Neutrophils 67.7 % (42.0-75.0); Hemoglobin 7.5 g/dL (12.0-16.0); Mean Corpuscular HGB CONC 30.1 g/dL (32.0-36.0); Mean Corpuscular Hemoglobin 28.4 pg (27.0-31.0); Mean Corpuscular Volume 94.5 fL (78.0-98.0); Mean Platelet Volume 7.2 fL (7.4-10.4); Platelet Count 402 thou/uL (130-400); RBC Distribution Width 13.4 % (11.5-14.5); Red Blood Cell (RBC) Count 2.65 mill/uL (4.20-5.40); White Blood Cell (WBC) Count 9.1 thou/uL (4.8-10.8)
[2022-02-20 06:36] LABS: Anion Gap 12 mmol/L (10-20); BUN (Urea Nitrogen) 13 mg/dL (9.8-20.1); Calc. Creatinine Clearance 18 mL/min (70-130); Calcium 7.5 mg/dL (7.8-10.44); Carbon Dioxide 30 mmol/L (23-31); Chloride 99 mmol/L (98-107); Estimated GFR 26; Glucose 150 mg/dL (83-110); Potassium 3.8 mmol/L (3.5-5.1); Sodium 137 mmol/L (136-145)
[2022-02-20] MEDS: Labetalol HCl 100 MG TAB PO SCH ×2 (07:49→20:40)
[2022-02-20] MEDS: Heparin 5,000 UNITS/ML VIAL SC SCH ×2 (07:49→20:32)
[2022-02-20] MEDS: NIFEdipine XL 60 MG TAB PO SCH (07:49)
[2022-02-20] MEDS: Simvastatin 10 MG TAB PO SCH (20:33)
[2022-02-20] MEDS: Ezetimibe 10 MG TAB PO SCH (20:33)
[2022-02-21 07:24] LABS: #Basophils 0.1 thou/uL (0.0-0.2); #Eosinphils 0.3 thou/uL (0.0-0.7); #Lymphocytes 1.9 thou/uL (1.20-3.40); #Monocytes 0.7 thou/uL (0.11-0.59); #Neutrophils 5.9 thou/uL (1.40-6.50); %Basophils 0.9 % (0.0-1.0); %Lymphocytes 21.8 % (21.0-51.0); %Monocytes 8.2 % (0.0-10.0); %Neutrophils 66.1 % (42.0-75.0); Hemoglobin 7.4 g/dL (12.0-16.0); Mean Corpuscular HGB CONC 31.3 g/dL (32.0-36.0); Mean Corpuscular Hemoglobin 29.1 pg (27.0-31.0); Mean Platelet Volume 7.3 fL (7.4-10.4); Platelet Count 421 thou/uL (130-400); RBC Distribution Width 13.3 % (11.5-14.5); Red Blood Cell (RBC) Count 2.55 mill/uL (4.20-5.40); White Blood Cell (WBC) Count 8.9 thou/uL (4.8-10.8)
[2022-02-21] MEDS: Heparin 5,000 UNITS/ML VIAL SC SCH ×2 (07:46→21:02)
[2022-02-21] MEDS: Labetalol HCl 100 MG TAB PO SCH ×2 (07:46→20:15)
[2022-02-21] MEDS: NIFEdipine XL 60 MG TAB PO SCH (07:46)
[2022-02-21 07:48] LABS: Anion Gap 11 mmol/L (10-20); BUN (Urea Nitrogen) 19 mg/dL (9.8-20.1); Calc. Creatinine Clearance 14 mL/min (70-130); Calcium 7.5 mg/dL (7.8-10.44); Carbon Dioxide 30 mmol/L (23-31); Chloride 100 mmol/L (98-107); Estimated GFR 19; Glucose 113 mg/dL (83-110); Potassium 3.7 mmol/L (3.5-5.1); Sodium 137 mmol/L (136-145)
[2022-02-21] MEDS ORDERED: Heparin 10,000 UNITS/ 10 ML VIAL ONE (09:38)
[2022-02-21] MEDS ORDERED: Tuberculin PPD 0.1 ML VIAL I-DERMAL SCH (12:00)
[2022-02-21] MEDS: Ezetimibe 10 MG TAB PO SCH (20:13)
[2022-02-21] MEDS: traZODone HCl 50 MG TAB PO PRN (20:13)
[2022-02-21] MEDS: Simvastatin 10 MG TAB PO SCH (20:15)
[2022-02-22 05:41] LABS: #Eosinphils 0.3 thou/uL (0.0-0.7); #Lymphocytes 2.1 thou/uL (1.20-3.40); #Monocytes 0.9 thou/uL (0.11-0.59); #Neutrophils 5.6 thou/uL (1.40-6.50); %Basophils 0.2 % (0.0-1.0); %Eosinophils 3.1 % (0.0-10.0); %Lymphocytes 23.3 % (21.0-51.0); %Monocytes 9.9 % (0.0-10.0); %Neutrophils 63.5 % (42.0-75.0); Hemoglobin 7.7 g/dL (12.0-16.0); Mean Corpuscular HGB CONC 31.3 g/dL (32.0-36.0); Mean Corpuscular Hemoglobin 28.9 pg (27.0-31.0); Mean Corpuscular Volume 92.3 fL (78.0-98.0); Platelet Count 388 thou/uL (130-400); RBC Distribution Width 13.4 % (11.5-14.5); Red Blood Cell (RBC) Count 2.65 mill/uL (4.20-5.40); White Blood Cell (WBC) Count 8.8 thou/uL (4.8-10.8)
[2022-02-22 06:06] LABS: Anion Gap 11 mmol/L (10-20); BUN (Urea Nitrogen) 12 mg/dL (9.8-20.1); Calc. Creatinine Clearance 20 mL/min (70-130); Calcium 7.4 mg/dL (7.8-10.44); Carbon Dioxide 28 mmol/L (23-31); Chloride 100 mmol/L (98-107); Estimated GFR 29; Glucose 125 mg/dL (83-110); Potassium 3.4 mmol/L (3.5-5.1); Sodium 136 mmol/L (136-145)
[2022-02-22] MEDS: Labetalol HCl 100 MG TAB PO SCH ×2 (08:16→20:37)
[2022-02-22] MEDS: Heparin 5,000 UNITS/ML VIAL SC SCH ×2 (08:17→20:37)
[2022-02-22] MEDS: NIFEdipine XL 60 MG TAB PO SCH (08:17)
[2022-02-22] MEDS: Insulin Regular 300 UNITS/3 ML VIAL SC PRN (11:53)
[2022-02-22] MEDS ORDERED: ceFAZolin 2 GM/Dextrose 50 ML 2 GM in Premix Bag 1 BAG IVPB SCH (18:15)
[2022-02-22] MEDS ORDERED: CEFAZOLIN 2 GM VIAL IVPB SCH (18:15)
[2022-02-22] MEDS: Ezetimibe 10 MG TAB PO SCH (20:36)
[2022-02-22] MEDS: traZODone HCl 50 MG TAB PO PRN (20:37)
[2022-02-22] MEDS: Simvastatin 10 MG TAB PO SCH (20:37)
[2022-02-23] MEDS: Heparin 5,000 UNITS/ML VIAL SC SCH ×2 (09:00→20:51)
[2022-02-23] MEDS ORDERED: Heparin 10,000 UNITS/ 10 ML VIAL ONE (09:24)
[2022-02-23] MEDS: NIFEdipine XL 60 MG TAB PO SCH (14:38)
[2022-02-23] MEDS: Labetalol HCl 100 MG TAB PO SCH ×2 (14:38→20:46)
[2022-02-23] MEDS: Ezetimibe 10 MG TAB PO SCH (20:46)
[2022-02-23] MEDS: Simvastatin 10 MG TAB PO SCH (20:46)
[2022-02-23] MEDS: traZODone HCl 50 MG TAB PO PRN (20:47)
[2022-02-24] MEDS: NIFEdipine XL 60 MG TAB PO SCH (08:33)
[2022-02-24] MEDS: Heparin 5,000 UNITS/ML VIAL SC SCH ×2 (08:34→21:00)
[2022-02-24] MEDS: Labetalol HCl 100 MG TAB PO SCH ×2 (08:54→20:56)
[2022-02-24] MEDS: Acetaminophen 325 MG TAB PO PRN (20:55)
[2022-02-24] MEDS: traZODone HCl 50 MG TAB PO PRN (20:55)
[2022-02-24] MEDS: Simvastatin 10 MG TAB PO SCH (20:56)
[2022-02-24] MEDS: Ezetimibe 10 MG TAB PO SCH (20:56)
[2022-02-25 06:36] LABS: #Eosinphils 0.4 thou/uL (0.0-0.7); #Lymphocytes 2.3 thou/uL (1.20-3.40); #Monocytes 0.7 thou/uL (0.11-0.59); #Neutrophils 5.6 thou/uL (1.40-6.50); %Basophils 0.4 % (0.0-1.0); %Lymphocytes 25.5 % (21.0-51.0); %Neutrophils 62.1 % (42.0-75.0); Hemoglobin 7.7 g/dL (12.0-16.0); Mean Corpuscular HGB CONC 31.1 g/dL (32.0-36.0); Mean Corpuscular Hemoglobin 29.3 pg (27.0-31.0); Mean Corpuscular Volume 94.2 fL (78.0-98.0); Mean Platelet Volume 7.4 fL (7.4-10.4); Platelet Count 344 thou/uL (130-400); RBC Distribution Width 13.5 % (11.5-14.5); Red Blood Cell (RBC) Count 2.63 mill/uL (4.20-5.40); White Blood Cell (WBC) Count 9.1 thou/uL (4.8-10.8)
[2022-02-25 07:00] LABS: Anion Gap 12 mmol/L (10-20); BUN (Urea Nitrogen) 27 mg/dL (9.8-20.1); Calc. Creatinine Clearance 13 mL/min (70-130); Calcium 7.8 mg/dL (7.8-10.44); Carbon Dioxide 30 mmol/L (23-31); Chloride 102 mmol/L (98-107); Estimated GFR 17; Glucose 131 mg/dL (83-110); Potassium 3.5 mmol/L (3.5-5.1); Sodium 140 mmol/L (136-145)
[2022-02-25] MEDS: Aspirin 81 mg Enteric Coated Tablet PO SCH (08:44)
[2022-02-25] MEDS: Heparin 5,000 UNITS/ML VIAL SC SCH ×2 (08:44→21:51)
[2022-02-25] MEDS: Labetalol HCl 100 MG TAB PO SCH ×2 (08:44→21:50)
[2022-02-25] MEDS: NIFEdipine XL 60 MG TAB PO SCH (08:44)
[2022-02-25] MEDS: Ezetimibe 10 MG TAB PO SCH (21:50)
[2022-02-25] MEDS: Simvastatin 10 MG TAB PO SCH (21:51)
[2022-02-26] MEDS: Aspirin 81 mg Enteric Coated Tablet PO SCH (07:58)
[2022-02-26] MEDS: Labetalol HCl 100 MG TAB PO SCH ×2 (07:59→20:33)
[2022-02-26] MEDS: Heparin 5,000 UNITS/ML VIAL SC SCH ×2 (07:59→20:33)
[2022-02-26] MEDS ORDERED: CEFAZOLIN 2 GM VIAL ONE (09:59)
[2022-02-26] MEDS ORDERED: Sodium Chloride 0.9% 100 ML ONE (10:00)
[2022-02-26] MEDS ORDERED: Bupivacaine PF 0.5% 30 ML VIAL ONE (10:28)
[2022-02-26] MEDS ORDERED: Lidocaine 1% w/Epinephrine 1:100K 20 ML VIAL ONE (10:28)
[2022-02-26] MEDS ORDERED: Heparin 10,000 UNITS/ 10 ML VIAL ONE ×2 (10:28→14:47)
[2022-02-26] MEDS ORDERED: fentaNYL Citrate/PF 100 MCG/2 ML SYRINGE ONE (10:30)
[2022-02-26] MEDS ORDERED: Propofol 500 MG/50 ML VIAL ONE (10:30)
[2022-02-26] MEDS ORDERED: Lidocaine 1% PF 5 ML VIAL ONE (11:03)
[2022-02-26] MEDS ORDERED: PROPOFOL 200 MG/20 ML VIAL ONE (11:03)
[2022-02-26] MEDS: NIFEdipine XL 60 MG TAB PO SCH (15:46)
[2022-02-26 16:57] LABS: Hep B Core Total Ab Non-Reactive (NonReactive); Hep B Core Total Index 0.09 S/CO (0-0.79)
[2022-02-26] MEDS: Acetaminophen 325 MG TAB PO PRN (18:35)
[2022-02-26] MEDS: Simvastatin 10 MG TAB PO SCH (20:33)
[2022-02-26] MEDS: Ezetimibe 10 MG TAB PO SCH (20:33)
[2022-02-27] MEDS: Acetaminophen 325 MG TAB PO PRN ×2 (01:05→17:37)
[2022-02-27] MEDS: Labetalol HCl 100 MG TAB PO SCH ×2 (08:52→20:52)
[2022-02-27] MEDS: Heparin 5,000 UNITS/ML VIAL SC SCH ×2 (08:52→20:52)
[2022-02-27] MEDS: Aspirin 81 mg Enteric Coated Tablet PO SCH (08:52)
[2022-02-27] MEDS: NIFEdipine XL 60 MG TAB PO SCH (08:52)
[2022-02-27] MEDS ORDERED: Heparin 10,000 UNITS/ 10 ML VIAL ONE (09:26)
[2022-02-27 14:08] VITALS: BMI 16.9
[2022-02-27] MEDS: Simvastatin 10 MG TAB PO SCH (20:52)
[2022-02-27] MEDS: Ezetimibe 10 MG TAB PO SCH (20:52)
[2022-02-27] MEDS: traZODone HCl 50 MG TAB PO PRN (21:06)
[2022-02-28 07:22] LABS: #Eosinphils 0.4 thou/uL (0.0-0.7); #Lymphocytes 2.5 thou/uL (1.20-3.40); #Monocytes 0.6 thou/uL (0.11-0.59); #Neutrophils 6.7 thou/uL (1.40-6.50); %Basophils 0.4 % (0.0-1.0); %Eosinophils 3.4 % (0.0-10.0); %Lymphocytes 24.7 % (21.0-51.0); %Monocytes 5.9 % (0.0-10.0); %Neutrophils 65.6 % (42.0-75.0); Hemoglobin 8.5 g/dL (12.0-16.0); Mean Corpuscular HGB CONC 31.6 g/dL (32.0-36.0); Mean Corpuscular Hemoglobin 29.4 pg (27.0-31.0); Mean Corpuscular Volume 92.9 fL (78.0-98.0); Mean Platelet Volume 8.1 fL (7.4-10.4); Platelet Count 254 thou/uL (130-400); RBC Distribution Width 13.2 % (11.5-14.5); White Blood Cell (WBC) Count 10.2 thou/uL (4.8-10.8)
[2022-02-28 07:28] LABS: Anion Gap 11 mmol/L (10-20); BUN (Urea Nitrogen) 23 mg/dL (9.8-20.1); Calc. Creatinine Clearance 22 mL/min (70-130); Calcium 7.6 mg/dL (7.8-10.44); Carbon Dioxide 29 mmol/L (23-31); Chloride 101 mmol/L (98-107); Estimated GFR 40; Glucose 168 mg/dL (83-110); Potassium 3.1 mmol/L (3.5-5.1); Sodium 138 mmol/L (136-145)
[2022-02-28] MEDS: Heparin 5,000 UNITS/ML VIAL SC SCH (08:24)
[2022-02-28] MEDS: Labetalol HCl 100 MG TAB PO SCH ×2 (08:24→16:36)
[2022-02-28] MEDS: NIFEdipine XL 60 MG TAB PO SCH ×3 (08:24→16:05)
[2022-02-28] MEDS: Aspirin 81 mg Enteric Coated Tablet PO SCH ×3 (08:24→16:05)
[2022-02-28 09:05] LABS: HBSAB Concentration Less than 8.00 mIU/mL; HBSAg Index 0.22 S/CO (0-0.99); Hep B Surf AB Non-Reactive (NonReactive); Hep B Surf Ag Non-Reactive S/CO (NonReactive)
[2022-02-28] MEDS ORDERED: Heparin 10,000 UNITS/ 10 ML VIAL ONE (09:15)
[2022-02-28] MEDS: Acetaminophen 325 MG TAB PO PRN (16:08)
[2022-02-28 17:57] VITALS: BP 129/55; TEMP 99.1
== END 2022-02-28 17:21 | disposition home health service (06) | DRG 871 ==
LOC: ERS 13:08 → IMCU/EMU 14:53 → 2NO 02-05 13:09 → T4-B 02-09 19:49 → T4-A 02-21 23:11
PROVIDERS: ADMIT Internal Medicine; ATTEND Internal Medicine
PROC: 5A1D70Z Performance of Urinary Filtration, Intermittent, Less than 6 Hours Per Day (ICD-10-PCS; principal; 2022-02-02)
PROC: 3E03329 Introduction of Other Anti-infective into Peripheral Vein, Percutaneous Approach (ICD-10-PCS; 2022-02-02)
PROC: 06HY33Z Insertion of Infusion Device into Lower Vein, Percutaneous Approach (ICD-10-PCS; 2022-02-02)
PROC: 5A09357 Assistance with Respiratory Ventilation, Less than 24 Consecutive Hours, Continuous Positive Airway Pressure (ICD-10-PCS; 2022-02-03)
PROC: 8E0ZXY6 Isolation (ICD-10-PCS; 2022-02-13)
PROC: 0JH60XZ Insertion of Tunneled Vascular Access Device into Chest Subcutaneous Tissue and Fascia, Open Approach (ICD-10-PCS; 2022-02-26)
PROC: 02HV33Z Insertion of Infusion Device into Superior Vena Cava, Percutaneous Approach (ICD-10-PCS; 2022-02-26)
PROC: B5181ZA Fluoroscopy of Superior Vena Cava using Low Osmolar Contrast, Guidance (ICD-10-PCS; 2022-02-26)
PROC: B548ZZA Ultrasonography of Superior Vena Cava, Guidance (ICD-10-PCS; 2022-02-26)
PROC: 30233N1 Transfusion of Nonautologous Red Blood Cells into Peripheral Vein, Percutaneous Approach (ICD-10-PCS; 2022-02-27)
DX: A41.9 Sepsis, unspecified organism (principal); Z66 Do not resuscitate; R65.20 Severe sepsis without septic shock; Z20.822 Contact with and (suspected) exposure to COVID-19; J96.01 Acute respiratory failure with hypoxia; J69.0 Pneumonitis due to inhalation of food and vomit; I50.33 Acute on chronic diastolic (congestive) heart failure; G93.41 Metabolic encephalopathy; I21.A1 Myocardial infarction type 2; E43 Unspecified severe protein-calorie malnutrition; N18.6 End stage renal disease; N17.9 Acute kidney failure, unspecified; Z68.1 Body mass index [BMI] 19.9 or less, adult; I13.2 Hypertensive heart and chronic kidney disease with heart failure and with stage 5 chronic kidney disease, or end stage renal disease; E87.4 Mixed disorder of acid-base balance; N30.00 Acute cystitis without hematuria; E87.5 Hyperkalemia; E11.22 Type 2 diabetes mellitus with diabetic chronic kidney disease; E11.51 Type 2 diabetes mellitus with diabetic peripheral angiopathy without gangrene; D63.1 Anemia in chronic kidney disease; I25.10 Atherosclerotic heart disease of native coronary artery without angina pectoris; F17.210 Nicotine dependence, cigarettes, uncomplicated; M81.0 Age-related osteoporosis without current pathological fracture; E78.00 Pure hypercholesterolemia, unspecified; E11.42 Type 2 diabetes mellitus with diabetic polyneuropathy; F41.9 Anxiety disorder, unspecified; F32.A Depression, unspecified; K43.9 Ventral hernia without obstruction or gangrene; E88.09 Other disorders of plasma-protein metabolism, not elsewhere classified; G47.00 Insomnia, unspecified; E87.6 Hypokalemia; Z28.21 Immunization not carried out because of patient refusal; Z89.611 Acquired absence of right leg above knee; Z87.440 Personal history of urinary (tract) infections; Z99.2 Dependence on renal dialysis; Z90.49 Acquired absence of other specified parts of digestive tract; Z90.710 Acquired absence of both cervix and uterus; Z95.828 Presence of other vascular implants and grafts; Z98.890 Other specified postprocedural states; Z79.899 Other long term (current) drug therapy; Z79.4 Long term (current) use of insulin; Z99.81 Dependence on supplemental oxygen
CPT/HCPCS: 36415; 36416; 36430; 51701; 70450; 71045; 80048; 80053; 80202; 80306; 80307; 81003; 81015; 82550; 82553; 82805; 83605; 83735; 83880; 84100; 84484; 85014; 85018; 85025; 86580; 86704; 86706; 86850; 86900; 86901; 87040; 87149; 87324; 87340; 87449; 90935; 93306; 94640; 94660; 96365; 96367; 96375; C1752; G0257; J0360; J0610; J0690; J0696; J1642; J1644; J1815; J1940; J2543; J2704; J3370; J3490; J7050; J7070; J7620; J7999; P9016; Q0162; S0020; U0003; U0005

== ENCOUNTER 2022-03-08 17:13 | Inpatient (IN) | payer OTHER ==
[2022-03-08 17:44] LABS: #Basophils 0.1 thou/uL (0.0-0.2); #Eosinphils 0.2 thou/uL (0.0-0.7); #Lymphocytes 1.3 thou/uL (1.20-3.40); #Monocytes 0.7 thou/uL (0.11-0.59); #Neutrophils 3.2 thou/uL (1.40-6.50); %Basophils 0.9 % (0.0-1.0); %Eosinophils 3.6 % (0.0-10.0); %Lymphocytes 24.4 % (21.0-51.0); %Monocytes 13.3 % (0.0-10.0); %Neutrophils 57.8 % (42.0-75.0); Hemoglobin 8.3 g/dL (12.0-16.0); Mean Corpuscular HGB CONC 31.5 g/dL (32.0-36.0); Mean Corpuscular Hemoglobin 29.8 pg (27.0-31.0); Mean Corpuscular Volume 94.6 fL (78.0-98.0); Mean Platelet Volume 7.1 fL (7.4-10.4); Platelet Count 351 thou/uL (130-400); RBC Distribution Width 13.4 % (11.5-14.5); Red Blood Cell (RBC) Count 2.79 mill/uL (4.20-5.40); White Blood Cell (WBC) Count 5.5 thou/uL (4.8-10.8)
[2022-03-08 18:05] LABS: Bilirubin Small (Negative); Blood, Urine Moderate (Negative); Glucose, Urine (Dipstick) Negative (Negative); Ketone, Urine Trace mg/dL (Negative); Leukocyte Large (Negative); Nitrite Negative (Negative); Protein, Urine (Dipstick) > or equal to 300 mg/dL (Neg-Trace); Specific Gravity, Urine 1.025 (1.005-1.030); Urobilinogen 0.2 mg/dL (Less than 2)
[2022-03-08 18:07] LABS: Clarity Cloudy (Clear)
[2022-03-08 18:13] LABS: Bacteria/HPF 4+ HPF (None Seen); WBC/HPF Greater Than 50 HPF (0-3)
[2022-03-08 18:16] LABS: ALT (SGPT) 8 U/L (8-55); AST (SGOT) 18 U/L (5-34); Albumin 2.4 g/dL (3.4-4.8); Alkaline Phosphatase 82 U/L (40-110); Anion Gap 11 mmol/L (10-20); BUN (Urea Nitrogen) 17 mg/dL (9.8-20.1); Bilirubin, Total 0.3 mg/dL (0.2-1.2); Calc. Creatinine Clearance 0 mL/min (70-130); Calcium 7.8 mg/dL (7.8-10.44); Carbon Dioxide 32 mmol/L (23-31); Chloride 99 mmol/L (98-107); Estimated GFR 38; Glucose 126 mg/dL (83-110); Potassium 3.2 mmol/L (3.5-5.1); Protein, Total 5.4 g/dL (5.8-8.1); Sodium 139 mmol/L (136-145)
[2022-03-08] MEDS ORDERED: cefTRIAXone\\ROCEPHIN 2 GM VIAL ONE (19:04)
[2022-03-08] MEDS ORDERED: Vancomycin 1 GM/200 ML BAG ONE (19:23)
[2022-03-08 19:34] LABS: SARS-CoV-2 NAA Rapid Test DETECTED (NotDetected)
[2022-03-08] MEDS ORDERED: Acetaminophen 650 MG Suppository PR PRN ×2 (20:44→20:48)
[2022-03-08] MEDS ORDERED: Ondansetron ODT 4 MG TAB PO PRN (20:44)
[2022-03-08] MEDS ORDERED: Acetaminophen 325 MG TAB PO PRN (20:48)
[2022-03-08] MEDS ORDERED: Albuterol 200 PUFF (6.7GM INHALER) INH PRN (20:48)
[2022-03-08] MEDS ORDERED: Benzonatate 100 MG CAP PO PRN (20:48)
[2022-03-08] MEDS ORDERED: Cefepime 2 GM in Sodium Chloride 0.9% 100 ML IVPB SCH (21:00)
[2022-03-08 21:48] VITALS: BMI 18.8
[2022-03-08] MEDS ORDERED: Potassium Chloride 20 MEQ TAB PO SCH (22:30)
[2022-03-08] MEDS ORDERED: Electrolyte Replacement Protocol 1 EACH FS SCH (22:30)
[2022-03-08] MEDS: Cefepime 1 GM in Sodium Chloride 0.9% 100 ML IVPB SCH (22:40)
[2022-03-08] MEDS: Heparin 5,000 UNITS/ML VIAL SC SCH (22:40)
[2022-03-08] MEDS: Acetaminophen 325 MG TAB PO PRN (22:40)
[2022-03-08] MEDS: Azithromycin 500 MG in Sodium Chloride 0.9% 250 ML 250 ML IVPB SCH (23:03)
[2022-03-09] MEDS ORDERED: Dextrose 50% Abboject 50 ML SYRINGE SLOW IVP PRN (00:46)
[2022-03-09] MEDS ORDERED: Dextrose 5% in Water 1,000 ML IV PRN (00:46)
[2022-03-09] MEDS ORDERED: HumaLOG 300 UNITS/3 ML VIAL SC PRN (00:46)
[2022-03-09 00:58] LABS: Bacteria/HPF 4+ HPF (None Seen); Bilirubin Negative (Negative); Blood, Urine 1+ (Negative); Clarity Turbid (Clear); Glucose, Urine (Dipstick) Normal (Negative); Ketone, Urine Trace mg/dL (Negative); Leukocyte 500 Leu/uL (Negative); Nitrite Negative (Negative); Protein, Urine (Dipstick) 300 mg/dL (Neg-Trace); Specific Gravity, Urine 1.019 (1.002-1.036); Squamous Epithelial 0-3 HPF (0-3); Urobilinogen Normal mg/dL (Less than 2); WBC/HPF Greater than 50 HPF (0-3)
[2022-03-09 06:40] LABS: #Basophils 0.1 thou/uL (0.0-0.2); #Eosinphils 0.2 thou/uL (0.0-0.7); #Lymphocytes 2.3 thou/uL (1.20-3.40); #Monocytes 0.7 thou/uL (0.11-0.59); %Basophils 1.4 % (0.0-1.0); %Eosinophils 3.1 % (0.0-10.0); %Lymphocytes 36.5 % (21.0-51.0); %Monocytes 10.6 % (0.0-10.0); %Neutrophils 48.5 % (42.0-75.0); Hemoglobin 7.7 g/dL (12.0-16.0); Mean Corpuscular HGB CONC 31.5 g/dL (32.0-36.0); Mean Corpuscular Hemoglobin 29.9 pg (27.0-31.0); Mean Corpuscular Volume 94.9 fL (78.0-98.0); Mean Platelet Volume 7.1 fL (7.4-10.4); Platelet Count 342 thou/uL (130-400); RBC Distribution Width 13.5 % (11.5-14.5); Red Blood Cell (RBC) Count 2.59 mill/uL (4.20-5.40); White Blood Cell (WBC) Count 6.2 thou/uL (4.8-10.8)
[2022-03-09 07:04] LABS: Anion Gap 11 mmol/L (10-20); BUN (Urea Nitrogen) 20 mg/dL (9.8-20.1); Calc. Creatinine Clearance 20 mL/min (70-130); Calcium 7.8 mg/dL (7.8-10.44); Carbon Dioxide 30 mmol/L (23-31); Chloride 101 mmol/L (98-107); Estimated GFR 36; Glucose 112 mg/dL (83-110); Magnesium 1.5 mg/dL (1.6-2.6); Potassium 3.8 mmol/L (3.5-5.1); Sodium 138 mmol/L (136-145)
[2022-03-09] MEDS: Heparin 5,000 UNITS/ML VIAL SC SCH ×3 (08:47→23:41)
[2022-03-09] MEDS: Ascorbic Acid 500 mg Chewable Tablet PO SCH (08:51)
[2022-03-09] MEDS: Zinc Sulfate 220 MG CAP PO SCH (08:51)
[2022-03-09] MEDS: Cholecalciferol (Vitamin D3) 400 UNITS TAB PO SCH (08:51)
[2022-03-09] MEDS ORDERED: Heparin 10,000 UNITS/ 10 ML VIAL ONE (09:24)
[2022-03-09] MEDS: Azithromycin 500 MG in Sodium Chloride 0.9% 250 ML 250 ML IVPB SCH ×2 (23:41→23:59)
[2022-03-10] MEDS: Cefepime 1 GM in Sodium Chloride 0.9% 100 ML IVPB SCH ×2 (00:45)
[2022-03-10] MEDS: Zinc Sulfate 220 MG CAP PO SCH (08:45)
[2022-03-10] MEDS: Heparin 5,000 UNITS/ML VIAL SC SCH ×3 (08:45→20:22)
[2022-03-10] MEDS: Ascorbic Acid 500 mg Chewable Tablet PO SCH (08:45)
[2022-03-10] MEDS: Cholecalciferol (Vitamin D3) 400 UNITS TAB PO SCH (08:45)
[2022-03-10] MEDS: traZODone HCl 50 MG TAB PO SCH (20:20)
[2022-03-10] MEDS ORDERED: traZODone HCl 50 MG TAB PO SCH (21:00)
[2022-03-10] MEDS: Azithromycin 500 MG in Sodium Chloride 0.9% 250 ML 250 ML IVPB SCH (23:19)
[2022-03-11] MEDS: Cefepime 1 GM in Sodium Chloride 0.9% 100 ML IVPB SCH (01:23)
[2022-03-11] MEDS ORDERED: Merrem (PEDI) 500 MG in Syringe 0 ML IVPB SCH (07:45)
[2022-03-11] MEDS: Zinc Sulfate 220 MG CAP PO SCH (08:35)
[2022-03-11] MEDS: Heparin 5,000 UNITS/ML VIAL SC SCH ×3 (08:35→20:44)
[2022-03-11] MEDS: Cholecalciferol (Vitamin D3) 400 UNITS TAB PO SCH (08:35)
[2022-03-11] MEDS: Ascorbic Acid 500 mg Chewable Tablet PO SCH (08:36)
[2022-03-11] MEDS: Meropenem 500 MG in Sodium Chloride 0.9% 100 ML IVPB SCH ×2 (08:36→20:44)
[2022-03-11 11:46] LABS: SARS-CoV-2 IgG Spike Ab Interp Reactive (NonReactive); SARS-CoV-2 IgG Spike Conc/Indx 974.7 AU/mL (0.00-50.0)
[2022-03-11] MEDS: HumaLOG 300 UNITS/3 ML VIAL SC PRN (17:27)
[2022-03-11] MEDS: traZODone HCl 50 MG TAB PO SCH (20:44)
[2022-03-11] MEDS: hydrALAZINE 20 MG/ML VIAL SLOW IVP PRN (20:57)
[2022-03-12] MEDS: HumaLOG 300 UNITS/3 ML VIAL SC PRN (05:47)
[2022-03-12 07:28] LABS: Anion Gap 11 mmol/L (10-20); BUN (Urea Nitrogen) 30 mg/dL (9.8-20.1); Calc. Creatinine Clearance 20 mL/min (70-130); Calcium 7.9 mg/dL (7.8-10.44); Carbon Dioxide 29 mmol/L (23-31); Chloride 103 mmol/L (98-107); Estimated GFR 35; Glucose 153 mg/dL (83-110); Potassium 3.5 mmol/L (3.5-5.1); Sodium 139 mmol/L (136-145)
[2022-03-12] MEDS: Ascorbic Acid 500 mg Chewable Tablet PO SCH (08:49)
[2022-03-12] MEDS: Cholecalciferol (Vitamin D3) 400 UNITS TAB PO SCH (08:50)
[2022-03-12] MEDS: Heparin 5,000 UNITS/ML VIAL SC SCH ×3 (08:50→21:22)
[2022-03-12] MEDS: Meropenem 500 MG in Sodium Chloride 0.9% 100 ML IVPB SCH ×2 (08:50→21:22)
[2022-03-12] MEDS: Zinc Sulfate 220 MG CAP PO SCH (08:50)
[2022-03-12] MEDS ORDERED: Heparin 10,000 UNITS/ 10 ML VIAL ONE (10:22)
[2022-03-12] MEDS: traZODone HCl 50 MG TAB PO SCH (21:22)
[2022-03-13] MEDS: Ondansetron PF 4 MG/2 ML Vial IVP PRN ×2 (08:49→21:04)
[2022-03-13] MEDS: Meropenem 500 MG in Sodium Chloride 0.9% 100 ML IVPB SCH ×2 (08:50→21:00)
[2022-03-13] MEDS: Heparin 5,000 UNITS/ML VIAL SC SCH ×3 (08:55→21:00)
[2022-03-13] MEDS: Zinc Sulfate 220 MG CAP PO SCH (08:56)
[2022-03-13] MEDS: Cholecalciferol (Vitamin D3) 400 UNITS TAB PO SCH (08:56)
[2022-03-13] MEDS: Ascorbic Acid 500 mg Chewable Tablet PO SCH (08:56)
[2022-03-13 12:56] LABS: Hemoglobin 8.5 g/dL (12.0-16.0)
[2022-03-13] MEDS ORDERED: Epoetin (ESRD) 20,000 UNITS/ML SC SCH (13:00)
[2022-03-13] MEDS: HumaLOG 300 UNITS/3 ML VIAL SC PRN (13:10)
[2022-03-13] MEDS: traZODone HCl 50 MG TAB PO SCH (21:00)
[2022-03-14] MEDS: Zinc Sulfate 220 MG CAP PO SCH (08:26)
[2022-03-14] MEDS: Cholecalciferol (Vitamin D3) 400 UNITS TAB PO SCH (08:26)
[2022-03-14] MEDS: Ascorbic Acid 500 mg Chewable Tablet PO SCH (08:26)
[2022-03-14] MEDS: Heparin 5,000 UNITS/ML VIAL SC SCH ×3 (08:26→21:13)
[2022-03-14] MEDS: Meropenem 500 MG in Sodium Chloride 0.9% 100 ML IVPB SCH ×2 (08:26→21:13)
[2022-03-14] MEDS ORDERED: Heparin 10,000 UNITS/ 10 ML VIAL ONE (08:39)
[2022-03-14] MEDS: Ondansetron PF 4 MG/2 ML Vial IVP PRN (21:13)
[2022-03-14] MEDS: traZODone HCl 50 MG TAB PO SCH (21:14)
[2022-03-15] MEDS: HumaLOG 300 UNITS/3 ML VIAL SC PRN ×3 (06:39→16:36)
[2022-03-15] MEDS: Meropenem 500 MG in Sodium Chloride 0.9% 100 ML IVPB SCH ×2 (08:21→21:29)
[2022-03-15] MEDS: Cholecalciferol (Vitamin D3) 400 UNITS TAB PO SCH (08:21)
[2022-03-15] MEDS: Zinc Sulfate 220 MG CAP PO SCH (08:21)
[2022-03-15] MEDS: Heparin 5,000 UNITS/ML VIAL SC SCH ×3 (08:21→21:29)
[2022-03-15] MEDS: Ascorbic Acid 500 mg Chewable Tablet PO SCH (08:21)
[2022-03-15] MEDS: Ondansetron PF 4 MG/2 ML Vial IVP PRN (08:35)
[2022-03-15] MEDS ORDERED: Ezetimibe 10 MG TAB PO SCH (21:00)
[2022-03-15] MEDS: Albuterol 200 PUFF (6.7GM INHALER) INH SCH (21:26)
[2022-03-15] MEDS: Acetaminophen 325 MG TAB PO PRN (21:28)
[2022-03-15] MEDS: guaiFENesin/DM ER PO SCH (21:28)
[2022-03-15] MEDS: traZODone HCl 50 MG TAB PO SCH (21:28)
[2022-03-16] MEDS: hydrALAZINE 20 MG/ML VIAL SLOW IVP PRN (02:34)
[2022-03-16] MEDS: HumaLOG 300 UNITS/3 ML VIAL SC PRN (05:29)
[2022-03-16] MEDS ORDERED: Insulin Glargine 30 UNITS/0.3 ML VIAL SC SCH (09:00)
[2022-03-16] MEDS: Cholecalciferol (Vitamin D3) 400 UNITS TAB PO SCH ×3 (09:00→14:07)
[2022-03-16] MEDS: Ascorbic Acid 500 mg Chewable Tablet PO SCH ×3 (09:00→14:07)
[2022-03-16] MEDS: guaiFENesin/DM ER PO SCH (09:11)
[2022-03-16] MEDS: Zinc Sulfate 220 MG CAP PO SCH (09:11)
[2022-03-16] MEDS: Aspirin 81 mg Enteric Coated Tablet PO SCH ×2 (09:11→14:08)
[2022-03-16] MEDS: Meropenem 500 MG in Sodium Chloride 0.9% 100 ML IVPB SCH (09:12)
[2022-03-16] MEDS: Heparin 5,000 UNITS/ML VIAL SC SCH (09:13)
[2022-03-16] MEDS: Albuterol 200 PUFF (6.7GM INHALER) INH SCH ×2 (09:14→09:36)
[2022-03-16] MEDS: Ondansetron PF 4 MG/2 ML Vial IVP PRN (09:19)
[2022-03-16 11:45] VITALS: BP 129/68; TEMP 98.5
[2022-03-16] MEDS ORDERED: Heparin 10,000 UNITS/ 10 ML VIAL ONE (13:35)
== END 2022-03-16 16:25 | disposition home or self-care (01) | DRG 871 ==
LOC: ERS 17:13 → T4-B 19:26
PROVIDERS: ADMIT Internal Medicine; ATTEND Internal Medicine
PROC: 8E0ZXY6 Isolation (ICD-10-PCS; principal; 2022-03-08)
PROC: 3E03329 Introduction of Other Anti-infective into Peripheral Vein, Percutaneous Approach (ICD-10-PCS; 2022-03-08)
PROC: 5A1D70Z Performance of Urinary Filtration, Intermittent, Less than 6 Hours Per Day (ICD-10-PCS; 2022-03-09)
DX: A41.89 Other specified sepsis (principal); U07.1 COVID-19; J12.82 Pneumonia due to coronavirus disease 2019; N18.6 End stage renal disease; E43 Unspecified severe protein-calorie malnutrition; J69.0 Pneumonitis due to inhalation of food and vomit; I12.0 Hypertensive chronic kidney disease with stage 5 chronic kidney disease or end stage renal disease; N17.9 Acute kidney failure, unspecified; N30.00 Acute cystitis without hematuria; Z68.1 Body mass index [BMI] 19.9 or less, adult; Z16.20 Resistance to unspecified antibiotic; J90 Pleural effusion, not elsewhere classified; Z66 Do not resuscitate; I25.10 Atherosclerotic heart disease of native coronary artery without angina pectoris; E78.5 Hyperlipidemia, unspecified; E87.6 Hypokalemia; D63.1 Anemia in chronic kidney disease; I25.5 Ischemic cardiomyopathy; A41.51 Sepsis due to Escherichia coli [E. coli]; E11.22 Type 2 diabetes mellitus with diabetic chronic kidney disease; Z79.899 Other long term (current) drug therapy; Z99.81 Dependence on supplemental oxygen; Z89.611 Acquired absence of right leg above knee; Z99.2 Dependence on renal dialysis; Z79.82 Long term (current) use of aspirin; Z79.4 Long term (current) use of insulin; Z90.49 Acquired absence of other specified parts of digestive tract; Z98.890 Other specified postprocedural states; I25.2 Old myocardial infarction; Z87.891 Personal history of nicotine dependence; Z79.51 Long term (current) use of inhaled steroids
CPT/HCPCS: 36415; 36416; 51701; 71045; 71250; 76770; 80048; 80053; 81001; 81003; 81015; 83605; 83735; 85014; 85018; 85025; 86140; 86769; 87040; 87077; 87086; 87186; 90935; 93005; 93970; 96374; 96375; G0257; J0360; J0456; J0692; J0696; J1644; J1815; J2185; J2405; J3370; J3490; J7050; Q0162; Q4081

== ENCOUNTER 2022-04-24 13:01 | Inpatient (IN) | payer OTHER ==
[~2022-04-24 13:01] MED LIST changes: -Bupivacaine 0.75% 10 ML AMP ONE; -CEFAZOLIN 1 GM VIAL ONE; -Cyclopentolate 1% Opth Drop 2 ML BOT FS SCH; -Cyclopentolate 1% Opth Drop 2 ML BOT ONE; -Dextrose 50% Abboject 50 ML SYRINGE ONE; -EPINEPHrine 0.3 MG, Dextrose 50% 3 ML in Ophthalmic Irrigation Solution 500 ML FS SCH; -Fentanyl 100 MCG/2 ML VIAL ONE; +Heparin 10,000 UNITS/ 10 ML VIAL ONE; -Lidocaine 1% PF 5 ML VIAL ONE; -Lidocaine 4% PF 5 ML AMP ONE; -Maxitrol 0.1% Opth Oint 3.5 GM TUBE ONE; -Midazolam HCl 2 mg/2 ml Vial ONE; -PROPOFOL 20 ML ONE; -PROPOFOL 200 MG/20 ML VIAL ONE; -Phenylephrine 2.5% Ophth Soln 5 ML BOT FS SCH; -Phenylephrine 2.5% Ophth Soln 5 ML BOT ONE; -Triamcinolone 40 MG/ML VIAL ONE
[2022-04-24 14:15] LABS: #Eosinphils 0.4 thou/uL (0.0-0.7); #Lymphocytes 1.9 thou/uL (1.20-3.40); #Monocytes 0.8 thou/uL (0.11-0.59); #Neutrophils 6.1 thou/uL (1.40-6.50); %Basophils 0.3 % (0.0-1.0); %Eosinophils 4.7 % (0.0-10.0); %Lymphocytes 19.9 % (21.0-51.0); %Monocytes 8.8 % (0.0-10.0); %Neutrophils 66.3 % (42.0-75.0); Hemoglobin 9.8 g/dL (12.0-16.0); Mean Corpuscular HGB CONC 31.2 g/dL (32.0-36.0); Mean Corpuscular Hemoglobin 30.5 pg (27.0-31.0); Mean Corpuscular Volume 97.6 fL (78.0-98.0); Mean Platelet Volume 7.2 fL (7.4-10.4); Platelet Count 377 thou/uL (130-400); RBC Distribution Width 15.6 % (11.5-14.5); Red Blood Cell (RBC) Count 3.21 mill/uL (4.20-5.40); White Blood Cell (WBC) Count 9.3 thou/uL (4.8-10.8)
[2022-04-24 14:42] LABS: ALT (SGPT) 8 U/L (8-55); AST (SGOT) 12 U/L (5-34); Albumin 2.7 g/dL (3.4-4.8); Alkaline Phosphatase 97 U/L (40-110); Anion Gap 15 mmol/L (10-20); BUN (Urea Nitrogen) 12 mg/dL (9.8-20.1); Bilirubin, Total 0.3 mg/dL (0.2-1.2); CK (CPK) 41 U/L (29-168); Calc. Creatinine Clearance 0 mL/min (70-130); Calcium 7.9 mg/dL (7.8-10.44); Carbon Dioxide 29 mmol/L (23-31); Chloride 99 mmol/L (98-107); Estimated GFR 42; Globulin 3.1 g/dL (2.4-3.5); Glucose 178 mg/dL (83-110); Lipase Less than 4 U/L (8-78); Potassium 3.5 mmol/L (3.5-5.1); Protein, Total 5.8 g/dL (5.8-8.1); Sodium 139 mmol/L (136-145)
[2022-04-24] MEDS ORDERED: Nitroglycerin 2% Ointment 1 INCH/1 GM Packet ONE (14:53)
[2022-04-24] MEDS ORDERED: hydrALAZINE 20 MG/ML VIAL SLOW IVP PRN (16:17)
[2022-04-24 16:44] LABS: SARS-CoV-2 NAA Rapid Test Not Detected (NotDetected)
[2022-04-24 18:22] LABS: HBSAB Concentration Less than 8.00 mIU/mL; HBSAg Index 0.32 S/CO (0-0.99); Hep B Core Total Ab Non-Reactive (NonReactive); Hep B Core Total Index 0.08 S/CO (0-0.79); Hep B Surf AB Non-Reactive (NonReactive); Hep B Surf Ag Non-Reactive S/CO (NonReactive); Hep C IgG Ab Non-Reactive (NonReactive); Hep C Index 0.37 S/CO (0-0.79)
[2022-04-24] MEDS ORDERED: Ondansetron PF 4 MG/2 ML Vial IVP PRN ×2 (18:25→21:45)
[2022-04-24] MEDS ORDERED: Bisacodyl 5 MG TAB PO PRN (18:25)
[2022-04-24] MEDS ORDERED: Dextrose 50% Abboject 50 ML SYRINGE SLOW IVP PRN (18:25)
[2022-04-24] MEDS ORDERED: Dextrose 5% in Water 1,000 ML IV PRN (18:25)
[2022-04-24] MEDS ORDERED: Acetaminophen 325 MG TAB PO PRN (18:25)
[2022-04-24] MEDS ORDERED: Ondansetron ODT 4 MG TAB SL PRN (21:45)
[2022-04-24 22:59] VITALS: BMI 16.3
[2022-04-24] MEDS: Heparin 5,000 UNITS/ML VIAL SC SCH (23:26)
[2022-04-24] MEDS: Labetalol HCl 100 MG TAB PO SCH (23:26)
[2022-04-25] MEDS: Melatonin 3 MG TAB PO PRN ×2 (00:21→21:58)
[2022-04-25 04:47] LABS: #Eosinphils 0.5 thou/uL (0.0-0.7); #Monocytes 0.8 thou/uL (0.11-0.59); #Neutrophils 5.3 thou/uL (1.40-6.50); %Basophils 0.3 % (0.0-1.0); %Eosinophils 5.4 % (0.0-10.0); %Lymphocytes 23.5 % (21.0-51.0); %Monocytes 8.9 % (0.0-10.0); %Neutrophils 61.8 % (42.0-75.0); Hemoglobin 9.6 g/dL (12.0-16.0); Mean Corpuscular HGB CONC 30.5 g/dL (32.0-36.0); Mean Corpuscular Hemoglobin 29.8 pg (27.0-31.0); Mean Corpuscular Volume 97.9 fL (78.0-98.0); Mean Platelet Volume 7.4 fL (7.4-10.4); Platelet Count 331 thou/uL (130-400); RBC Distribution Width 15.3 % (11.5-14.5); Red Blood Cell (RBC) Count 3.23 mill/uL (4.20-5.40); White Blood Cell (WBC) Count 8.6 thou/uL (4.8-10.8)
[2022-04-25 05:08] LABS: Anion Gap 11 mmol/L (10-20); BUN (Urea Nitrogen) 6 mg/dL (9.8-20.1); Calc. Creatinine Clearance 27 mL/min (70-130); Calcium 7.8 mg/dL (7.8-10.44); Carbon Dioxide 29 mmol/L (23-31); Chloride 98 mmol/L (98-107); Estimated GFR 55; Glucose 325 mg/dL (83-110); Potassium 3.2 mmol/L (3.5-5.1); Sodium 135 mmol/L (136-145)
[2022-04-25] MEDS: HumaLOG 300 UNITS/3 ML VIAL SC PRN ×2 (06:14→17:09)
[2022-04-25] MEDS ORDERED: Potassium Chloride 20 MEQ TAB PO SCH (08:30)
[2022-04-25] MEDS ORDERED: Lisinopril 10 MG TAB PO SCH (09:00)
[2022-04-25] MEDS: Labetalol HCl 100 MG TAB PO SCH ×2 (09:44→21:59)
[2022-04-25] MEDS: Heparin 5,000 UNITS/ML VIAL SC SCH ×2 (09:44→21:59)
[2022-04-25] MEDS: NIFEdipine XL 60 MG TAB PO SCH (09:44)
[2022-04-25] MEDS: Aspirin 81 mg Enteric Coated Tablet PO SCH (09:44)
[2022-04-25] MEDS: traZODone HCl 50 MG TAB PO SCH (21:59)
[2022-04-26 04:46] LABS: #Basophils 0.1 thou/uL (0.0-0.2); #Eosinphils 0.8 thou/uL (0.0-0.7); #Neutrophils 5.6 thou/uL (1.40-6.50); %Basophils 0.6 % (0.0-1.0); %Eosinophils 8.1 % (0.0-10.0); %Lymphocytes 21.3 % (21.0-51.0); %Monocytes 10.1 % (0.0-10.0); %Neutrophils 59.9 % (42.0-75.0); Mean Corpuscular Hemoglobin 29.7 pg (27.0-31.0); Mean Platelet Volume 7.4 fL (7.4-10.4); Platelet Count 367 thou/uL (130-400); RBC Distribution Width 15.2 % (11.5-14.5); Red Blood Cell (RBC) Count 3.35 mill/uL (4.20-5.40); White Blood Cell (WBC) Count 9.4 thou/uL (4.8-10.8)
[2022-04-26 05:01] LABS: Anion Gap 13 mmol/L (10-20); BUN (Urea Nitrogen) 19 mg/dL (9.8-20.1); Calc. Creatinine Clearance 15 mL/min (70-130); Calcium 8.2 mg/dL (7.8-10.44); Carbon Dioxide 26 mmol/L (23-31); Chloride 101 mmol/L (98-107); Estimated GFR 27; Glucose 396 mg/dL (83-110); Magnesium 1.9 mg/dL (1.6-2.6); Potassium 4.4 mmol/L (3.5-5.1); Sodium 136 mmol/L (136-145)
[2022-04-26] MEDS: HumaLOG 300 UNITS/3 ML VIAL SC PRN ×2 (05:27→17:42)
[2022-04-26] MEDS ORDERED: Insulin Glargine 30 UNITS/0.3 ML VIAL SC SCH (08:30)
[2022-04-26] MEDS: Labetalol HCl 100 MG TAB PO SCH ×3 (09:05→20:01)
[2022-04-26] MEDS: NIFEdipine XL 60 MG TAB PO SCH (09:05)
[2022-04-26] MEDS: Heparin 5,000 UNITS/ML VIAL SC SCH ×2 (09:06→20:01)
[2022-04-26] MEDS: Lisinopril 20 MG TAB PO SCH (09:09)
[2022-04-26] MEDS: Aspirin 81 mg Enteric Coated Tablet PO SCH (09:09)
[2022-04-26] MEDS: traZODone HCl 50 MG TAB PO SCH (20:01)
[2022-04-26] MEDS: Melatonin 3 MG TAB PO PRN (20:01)
[2022-04-27 04:49] LABS: Anion Gap 11 mmol/L (10-20); BUN (Urea Nitrogen) 31 mg/dL (9.8-20.1); Calc. Creatinine Clearance 13 mL/min (70-130); Calcium 8.5 mg/dL (7.8-10.44); Carbon Dioxide 29 mmol/L (23-31); Chloride 100 mmol/L (98-107); Estimated GFR 21; Glucose 194 mg/dL (83-110); Potassium 4.4 mmol/L (3.5-5.1); Sodium 136 mmol/L (136-145)
[2022-04-27] MEDS: HumaLOG 300 UNITS/3 ML VIAL SC PRN ×2 (05:51→17:17)
[2022-04-27] MEDS ORDERED: Heparin 10,000 UNITS/ 10 ML VIAL ONE (08:18)
[2022-04-27] MEDS: Heparin 5,000 UNITS/ML VIAL SC SCH (09:31)
[2022-04-27] MEDS: Lisinopril 20 MG TAB PO SCH (09:31)
[2022-04-27] MEDS: Aspirin 81 mg Enteric Coated Tablet PO SCH (09:31)
[2022-04-27] MEDS: Labetalol HCl 100 MG TAB PO SCH ×2 (09:31→14:16)
[2022-04-27] MEDS: NIFEdipine XL 60 MG TAB PO SCH (09:32)
[2022-04-27 17:21] VITALS: BP 118/86; TEMP 98
== END 2022-04-27 19:40 | disposition home or self-care (01) | DRG 291 ==
LOC: ERS 13:01 → ERHOLD 15:13 → 2NO 21:41
PROVIDERS: ADMIT Internal Medicine; ATTEND Internal Medicine
PROC: 5A1D70Z Performance of Urinary Filtration, Intermittent, Less than 6 Hours Per Day (ICD-10-PCS; principal; 2022-04-24)
DX: I13.2 Hypertensive heart and chronic kidney disease with heart failure and with stage 5 chronic kidney disease, or end stage renal disease (principal); I50.33 Acute on chronic diastolic (congestive) heart failure; J96.21 Acute and chronic respiratory failure with hypoxia; I50.32 Chronic diastolic (congestive) heart failure; Z66 Do not resuscitate; Z20.822 Contact with and (suspected) exposure to COVID-19; E11.22 Type 2 diabetes mellitus with diabetic chronic kidney disease; F39 Unspecified mood [affective] disorder; E78.5 Hyperlipidemia, unspecified; M81.0 Age-related osteoporosis without current pathological fracture; D63.1 Anemia in chronic kidney disease; E11.65 Type 2 diabetes mellitus with hyperglycemia; Z99.2 Dependence on renal dialysis; Z87.440 Personal history of urinary (tract) infections; Z79.899 Other long term (current) drug therapy; Z79.4 Long term (current) use of insulin; Z89.611 Acquired absence of right leg above knee; Z90.49 Acquired absence of other specified parts of digestive tract; Z99.81 Dependence on supplemental oxygen
CPT/HCPCS: 36415; 36416; 71045; 80048; 80053; 82550; 83690; 83735; 83880; 84484; 85025; 86704; 87340; 90935; 93005; 93306; G0257; J0360; J1644; J1815; U0002